=== PATIENT | male | born 1940 | race Two or more races ===

== ENCOUNTER → 2016-10-24 | Outpatient (CLI) | payer MEDICARE, OTHER ==
[~2016-10-24] MED LIST: HYDR25SU23 PR
--- NOTE | 2016-10-24 17:33 | RADRPT ---
PROCEDURE: XR Lumbar Spine. CLINICAL INDICATION: Back pain. TECHNIQUE: Three views. AP, lateral and cone-down lateral view of the lumbar spine were obtained. COMPARISON: No prior studies are available for comparison. FINDINGS: There is normal stature and alignment of the vertebrae. There is no fracture. There is no lytic or blastic lesion. There are degenerative changes with small osteophytes throughout. The disk height is normal. Vascular calcifications are present consistent with atherosclerosis. IMPRESSION: 1. Mild degenerative change throughout. 2. Atherosclerosis. 3. No acute abnormality. RPTAT: QQ .Elian Whitley MD, MD Date Time Electronically viewed and signed by .Elian Whitley MD, MD on 10/24/2016 17:33 .R/
== END | disposition home or self-care (01) ==
LOC: RAD 16:12
PROVIDERS: ATTEND Internal Medicine Rheumatology
DX: M54.5 Low back pain (principal)
CPT/HCPCS: 72100

== ENCOUNTER 2017-06-16 19:02 | Emergency (ER) | payer MEDICARE, OTHER ==
[~2017-06-16] VITALS: Ht 170.2 cm; Wt 83.5 kg
[2017-06-16 19:09] VITALS: Ht 170.2 cm; Wt 83.5 kg
== END 2017-06-16 22:32 | disposition left against medical advice (07) ==
LOC: E/R 19:02
DX: Z53.21 Procedure and treatment not carried out due to patient leaving prior to being seen by health care provider (principal)

== ENCOUNTER → 2017-11-21 | Outpatient (CLI) | END | disposition home or self-care (01) ==

== ENCOUNTER → 2017-12-27 | Outpatient (CLI) | END | disposition home or self-care (01) ==

== ENCOUNTER → 2018-02-09 | Outpatient (CLI) | END | disposition home or self-care (01) ==

== ENCOUNTER 2018-07-02 17:05 | Inpatient (IN) | END 2018-07-07 19:06 | disposition home health service (06) | DRG 433 ==

== ENCOUNTER 2018-10-01 15:17 | Inpatient (IN) | payer MEDICARE, OTHER ==
[~2018-10-01] VITALS: Ht 170.2 cm; Wt 72.6 kg
[~2018-10-01 15:17] MED LIST changes: +BICA50TA47 PO; +DOCU-216 PO; -HYDR25SU23 PR; +LAS20 PO; +LEVO125T7 PO; +MECL-77 PO; +MORP15TA3 PO; +OMEP40CA6 PO; +ONDA4TAB13 PO; +Polyethylene Glycol PO; +SPIR50TA PO; +TAMS-14 PO; +TRAM50TA2 PO
[2018-10-01] MEDS ORDERED: SODIUM CHLORIDE 0.9% 1L BAG IV* STA (15:19)
[2018-10-01 15:24] VITALS: Ht 170.2 cm; Wt 72.6 kg
[2018-10-01] MEDS ORDERED: SULF1TAB31 PO (16:42)
[2018-10-01] MEDS ORDERED: HYDR-4011 PO (16:42)
[2018-10-01] MEDS ORDERED: PRED5TAB PO (16:43)
[2018-10-01] MEDS ORDERED: ABIR250T PO (16:44)
[2018-10-01] MEDS ORDERED: HYDROCODONE/APAP (5/325) TAB PO ONE (17:00)
[2018-10-01] MEDS ORDERED: SOD CHLORIDE 0.9% 1,000 ML IV ONE (17:00)
--- NOTE | 2018-10-01 17:17 | ERD ---
ER Documentation Chief Complaint Chief Complaint generalized body pain 2 days HPI 78-year-old male brought into the emergency department by ambulance with his family who is providing translation and history. The patient is a poor hi storian providing no significant insight. According to the family, patient has a long-standing history of prostate cancer. He is required an indwelling Vaughn catheter and is known to have metastatic disease. Over the last 2 days, he has been confused, dehydrated and having increased discomfort all over his body that is poorly localized and poorly described. According to the family, he has had no fevers or chills but continued to be very weak and uncomfortable. ROS All systems reviewed and are negative except as per history of present illness. Medications Home Meds Active Scripts Tramadol HCl (Tramadol HCl) 50 Mg Tablet, 50 MG PO Q6H PRN for PAIN, #60 TAB Prov:UZIEL ABDI 07/07/18 Reported Medications Abiraterone Acetate (ZYTIGA) 250 Mg Tablet, 1000 MG PO DAILY, TAB 10/01/18 Prednisone* (Prednisone*) 5 Mg Tab, 5 MG PO BID, TAB 10/01/18 Hydrocodone/Acetaminophen ([place] 5-325 Tablet) 1 Each Tablet, 1 EACH PO Q6H, TAB 10/01/18 Sulfamethoxazole/Trimethoprim* (Bactrim Ds* Tablet) 1 Each Tablet, 1 TAB PO BID, TAB 10/01/18 Omeprazole* (Omeprazole*) 40 Mg Capsule.dr, 40 MG PO AC BREAKFAST, #30 CAP 07/02/18 Levothyroxine Sodium* (Levothyroxine Sodium*) 125 Mcg Tablet, 125 MCG PO BEFORE BREAKFAST, #30 TAB 07/02/18 Discontinued Reported Medications Ondansetron Hcl* (Zofran*) 4 Mg Tab, 4 MG PO Q4H PRN for NAUSEA AND OR VOMITING, TAB 07/02/18 Bicalutamide* (Bicalutamide*) 50 Mg Tablet, 50 MG PO DAILY, TAB 07/02/18 Meclizine Hcl* (Meclizine Hcl*) 25 Mg Tablet, 25 MG PO Q8H PRN for DIZZINESS, TAB 07/02/18 Tamsulosin Hcl* (Flomax*) 0.4 Mg Cap.er.24h, 0.4 MG PO HS, CAP 07/02/18 Discontinued Scripts [Polyethylene Glycol] 17 GM/PKT LIQ No Conflict Check, 17 GM PO DAILY PRN for CONSTIPATION, #60 PACKET Prov:UZIEL ABDI 07/07/18 Docusate Sodium (Dok) 100 Mg Capsule, 100 MG PO BID PRN for CONSTIPATION, #60 CAP Prov:UZIEL ABDI 07/07/18 Furosemide (Lasix) 20 Mg Tab, 20 MG PO DAILY, #60 TAB Prov:UZIEL ABDI 07/07/18 Morphine Sulfate (Morphine Sulfate ER) 15 Mg Tablet.er, 15 MG PO BID, #60 TAB Prov:UZIEL ABDI 07/07/18 Spironolactone* (Aldactone*) 50 Mg Tablet, 50 MG PO DAILY, #60 TAB Prov:UZIEL ABDI 07/07/18 Allergies Allergies: Coded Allergies: No Known Drug Allergies (Verified Allergy, Unknown, 10/01/18) PMhx/Soc History of Surgery: Yes (Partial prostate removal (2 mo ago), abd hernia repair, liver TIPS, stomach) Anesthesia Reaction: No Hx Neurological Disorder: No Hx Respiratory Disorders: No Hx Cardiac Disorders: Yes (abdominal hernia repair) Hx Psychiatric Problems: Yes (Depression, ETOH) Hx Miscellaneous Medical Probl: Yes (Cirrohsis, noncompliance) Hx Alcohol Use: Yes (Alcohol, not every day, but multiple days per week) Hx Substance Use: Yes Hx Tobacco Use: No FmHx Supportive daughter at the bedside. Physical Exam Vitals Vital Signs Date Temp Pulse Resp B/P (MAP) Pulse Ox O2 O2 Flow FiO2 Time Delivery Rate 10/01/18 97.3 108 20 98/63 (75) 95 15:24 Physical Exam GENERAL: Frail, elderly male. He appears dehydrated and ill-appearing HEENT: Pupils equal, round, and reactive to light. EOMI. There is no scleral ic terus. Mucous membranes are dry NECK: C-spine is soft and supple, there is no meningismus. There is no cervical lymphadenopathy. LUNGS: Clear to auscultation bilaterally. There are no rales, wheezes or rhonchi. HEART: Regular rate and rhythm, no murmurs, clicks, rubs or gallops. ABDOMEN: Soft, non-tender, non-distended. There are bowel sounds in all four quadrants. No rebound or guarding. : Patient has an indwelling Vaughn catheter draining urine with sediment in it. EXTREMITIES: 1+ edema bilaterally with no cyanosis or clubbing NEURO: The patient moves all four extremities with 5/5 strength. Cranial nerves II - XII are intact. Patient is awake and responsive to his family, but confuse d. SKIN: There is no apparent rash or petechiae. HEME/LYMPHATIC: There is no evidence of excessive bruising or lymphedema. PSYCHIATRIC: The patient does not appear anxious or depressed. Result Diagram: 10/01/18 1617 10/01/18 1617 Results 24 hrs Laboratory Tests Test 10/01/18 16:17 10/01/18 17:02 10/01/18 17:03 White Blood Count 10.6 10^3/ul Red Blood Count 3.12 10^6/ul Hemoglobin 10.4 g/dl Hematocrit 32.3 % Mean Corpuscular Volume 103.5 fl Mean Corpuscular Hemoglobin 33.3 pg Mean Corpuscular Hemoglobin Concent 32.2 g/dl Red Cell Distribution Width 16.2 % Platelet Count 86 10^3/UL Mean Platelet Volume 8.9 fl Immature Granulocytes % 0.500 % Neutrophils % % Segmented Neutrophils % (Manual) 71 % Lymphocytes % % Lymphocytes % (Manual) 19 % Monocytes % % Monocytes % (Manual) 9 % Eosinophils % % Eosinophils % (Manual) 1 % Basophils % % Nucleated Red Blood Cells % 0.0 /100WBC Immature Granulocytes # 0.050 10^3/ul Neutrophils # 10^3/ul Lymphocytes (Manual) 2.0 10^3/ul Lymphocytes # 10^3/ul Monocytes # 10^3/ul Monocytes # (Manual) 0.9 10^3/ul Eosinophils # 10^3/ul Basophils # 10^3/ul Nucleated Red Blood Cells # 10^3/ul Platelet Estimate DECREASED Giant Platelets 1 % Polychromasia 1+ Poikilocytosis 2+ Anisocytosis 1+ Macrocytosis 1+ Prothrombin Time 21.7 Sec Prothrombin Time Ratio 1.7 INR International Normalized Ratio 1.88 Activated Partial Thromboplast Time 37.6 Sec Sodium Level 137 mmol/L Potassium Level 4.1 mmol/L Chloride Level 112 mmol/L Carbon Dioxide Level 14 mmol/L Anion Gap 11 Blood Urea Nitrogen 26 mg/dl Creatinine 1.66 mg/dl Est Glomerular Filtrat Rate mL/min mL/min Glucose Level 71 mg/dl Calcium Level 10.8 mg/dl Total Bilirubin 3.8 mg/dl Direct Bilirubin 0.30 mg/dl Indirect Bilirubin 3.5 mg/dl Aspartate Amino Transf (AST/SGOT) 38 IU/L Alanine Aminotransferase (ALT/SGPT) 19 IU/L Alkaline Phosphatase 87 IU/L Troponin I 0.034 ng/ml Total Protein 5.9 g/dl Albumin 2.3 g/dl Globulin 3.60 g/dl Albumin/Globulin Ratio 0.63 POC Venous Lactate 5.2 mmol/L 4.6 mmol/L Current Medications Medications Dose Sig/Hoda Start Time Status Last (Trade) Ordered Route PRN Stop Time Admin Dose Reason Admin Sodium 2,100 ml BOLUS OVER 2 10/01/18 DC 10/01/18 Chloride HOURS STAT 15:19 10/01/18 16:48 (NS) IV* 15:21 1 tab ONCE ONCE 10/01/18 DC 10/01/18 Acetaminophen PO 17:00 10/01/18 16:51 / 17:01 Hydrocodone Bitart ([place] (5/325)) Sodium 1,000 ml @ Q1H ONCE 10/01/18 Chloride 1,000 mls/hr IV 17:00 10/01/18 17:59 Sodium 2,040 ml @ BOLUS X1 10/01/18 Chloride 680 mls/hr ONCE IV 17:30 10/01/18 20:29 Vancomycin 250 ml @ ONCE ONCE 10/01/18 HCl 125 mls/hr IVPB 17:30 10/01/18 19:29 Piperacillin 100 ml @ ONCE ONCE 10/01/18 Sod/ 200 mls/hr IVPB 17:30 10/01/18 Tazobactam 17:59 Sod Procedures/MDM Patient was taken to a room, seen and evaluated. Comfort measures were initiated. Diagnostic tests were ordered and reviewed. 3 LEAD RHYTHM STRIP: Sinus tachycardia EK lead EKG reviewed by myself: Sinus tachycardia Leftward axis deviation Nonspecific ST and T wave changes without ST elevation Impression: Abnormal, nonspecific EKG RADIOLOGY: Reviewed with the radiologist CONSULTATION: Hospitalist was notified for admission REEVALUATION: 1705: Initial lactate was performed demonstrating evidence of severe sepsis. A code sepsis was initiated. Patient remained with a blood pressure over 90 systolic. Fluids and antibiotics were initiated MEDICAL DECISION MAKIN-year-old male with an extensive history of prostate cancer presents with generalized body pain and weakness of uncertain etiology. Differential diagnosis entertained was broad and potential high acuity. Patient's diagnostic evaluation shows evidence of severe dehydration, acidosis and a possible sepsis from a possible urinary tract infection. He is severely hypercalcemic as well and dehydrated with renal failure. Given his age and his comorbid conditions, he is obviously high risk and will require admission for fluids, antibiotics and further supportive care. Sepsis Documentation: SEVERE SEPSIS CRITERIA: Infectious source: Likely catheter associated urinary tract infection End organ damage indicated by: lactate > 4 renal failure encephalopathy SEPSIS MANAGEMENT Time of recognition of sepsis: 170. Time of recognition of severe sepsis: 1705. Time of recognition of septic shock: No septic shock at this time. 3 HOUR BUNDLE Blood cultures x 2 before broad-spectrum antibiotics: Yes 30 ml/kg NS bolus ongoing Initial lactate reviewed Repeat lactate pending SEPTIC SHOCK ASSESSMENT: yes lactic acid > 4.0 No persistent hypotension (SBP < 90 or 40 mmHg drop, MAP < 65) despite 30 mL/kg IV fluid bolus VOLUME REASSESSMENT FOR SEPTIC SHOCK: Reevaluation Time: 1715 vital signs noted per nursing note Heart regular rate & rhythm Lungs no crackles Skin warm & dry Cap Refill less than 2 seconds Peripheral pulses radially present PERSISTENT HYPOTENSION TREATMENT: NA CRITICAL CARE Critical care time 35 minutes Emergent fluid management while maintaining close respiratory support. Provision of immediate and broad-spectrum antibiotic therapy. Simultaneous assessment for possible sources in order to direct targeted therapy. Consideration for invasive and chemical support to prevent cardiopulmonary collapse. Critical care time is independent of procedures performed. Departure Diagnosis: Primary Impression: Severe sepsis Additional Impressions: Hypercalcemia Renal failure Condition: Critical RASHAWNADRI Oct 01, 2018 17:17
[2018-10-01] MEDS ORDERED: SOD CHLORIDE 0.9% 2,040 ML IV ONE (17:30)
[2018-10-01] MEDS ORDERED: VANCOMYCIN 1 GM (PMX) 250 ML IVPB ONE (17:30)
[2018-10-01] MEDS ORDERED: PIPER-TAZO 3.375 GM IV (PMX) 100 ML IVPB ONE (17:30)
--- NOTE | 2018-10-01 18:55 | HP ---
Date/Time of Note Date/Time of Note DATE: 10/01/18 TIME: 18:48 Assessment/Plan VTE Prophylaxis SCD applied (from Nsg): Yes Pharmacological prophylaxis: NA/contraindicated Pharm contraindication: renal impairment Lines/Catheters IV Catheter Type (from Nrsg): Saline Lock Assessment/Plan Hospital Course 1. Septic shock secondary to urinary source Broad-spectrum antibiotics with vancomycin and Zosyn IV fluids Pressors as needed Admit to ICU 2. 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 History of cirrhosis status post TIPS 4. Pancytopenia secondary to cirrhosis Monitor 5. Acute kidney injury Differential includes ATN/hemodynamics and/or obstructive uropathy Follow-up on renal ultrasound IV fluids and antibiotics Prophylaxis: SCDs Result Diagram: 10/01/18 1617 10/01/18 1617 Results 24hrs Laboratory Tests Test 10/01/18 16:17 10/01/18 17:02 10/01/18 17:03 10/01/18 17:37 White Blood Count 10.6 # Red Blood Count 3.12 #L Hemoglobin 10.4 #L Hematocrit 32.3 #L Mean Corpuscular Volume 103.5 H Mean Corpuscular 33.3 H Hemoglobin Mean Corpuscular 32.2 Hemoglobin Concent Red Cell Distribution 16.2 H Width Platelet Count 86 #L Mean Platelet Volume 8.9 Immature Granulocytes % 0.500 H Neutrophils % Segmented Neutrophils 71 % (Manual) Lymphocytes % Lymphocytes % (Manual) 19 Monocytes % Monocytes % (Manual) 9 Eosinophils % Eosinophils % (Manual) 1 Basophils % Nucleated Red Blood 0.0 Cells % Immature Granulocytes # 0.050 H Neutrophils # Lymphocytes (Manual) 2.0 Lymphocytes # Monocytes # Monocytes # (Manual) 0.9 Eosinophils # Basophils # Nucleated Red Blood Cells # Platelet Estimate DECREASED Giant Platelets 1 H Polychromasia 1+ Poikilocytosis 2+ Anisocytosis 1+ Macrocytosis 1+ Prothrombin Time 21.7 H Prothrombin Time Ratio 1.7 INR International 1.88 Normalized Ratio Activated 37.6 H Partial Thromboplast Time Sodium Level 137 Potassium Level 4.1 Chloride Level 112 H Carbon Dioxide Level 14 L Anion Gap 11 Blood Urea Nitrogen 26 H Creatinine 1.66 H Est Glomerular Filtrat Rate mL/min Glucose Level 71 Calcium Level 10.8 H Total Bilirubin 3.8 H Direct Bilirubin 0.30 H Indirect Bilirubin 3.5 H Aspartate Amino 38 Transf (AST/SGOT) Alanine 19 Aminotransferase (ALT/SG PT) Alkaline Phosphatase 87 Troponin I 0.034 Total Protein 5.9 L Albumin 2.3 L Globulin 3.60 H Albumin/Globulin Ratio 0.63 POC Venous Lactate 5.2 *H 4.6 *H Urine Color AYE Urine Clarity CLOUDY A Urine pH 5.0 Urine Specific [place] 1.016 Urine Ketones TRACE A Urine Nitrite NEGATIVE Urine Bilirubin NEGATIVE Urine Urobilinogen 2+ H Urine Leukocyte Esterase 2+ H Urine Microscopic RBC > 182 H Urine Microscopic WBC > 182 H Urine Calcium Oxalate MODERATE Crystals Urine Mucus FEW A Urine Hemoglobin 3+ H Urine Glucose NEGATIVE Urine Total Protein 3+ H HPI/ROS Admit Date/Time Admit Date/Time October 01, 2018 Hx of Present Illness Patient is a 78-year-old [place]-speaking male with a history of prostate cancer with a Perley score of 10 out of 10 status post resection of bladder and prostate in December 2017, 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 Patient presents today with acute encephalopathy as well as s eptic shock secondary to a urinary source. Patient is unable to provide any history and history is obtained from previous documentation. ROS Subjective hx not possible: pt non-verbal PMH/Family/Social Past Medical History As per HPI Medications Current Medications Sodium Chloride 2,040 ml @ 680 mls/hr BOLUS X1 ONCE IV ; Start 10/01/18 at 17:30; Stop 10/01/18 at 20:29 Vancomycin HCl 250 ml @ 125 mls/hr ONCE ONCE IVPB Last administered on 10/01/18at 18:37; Admin Dose 125 MLS/HR; Start 10/01/18 at 17:30; Stop 10/01/18 at 19:29 Coded Allergies: No Known Drug Allergies (Verified Allergy, Unknown, 10/01/18) Past Surgical History Past Surgical Hx: other Family History Significant Family History: no pertinent family hx Social History Smoking Status: Never smoker Exam/Review of Systems Vital Signs Vitals Vital Signs Date Temp Pulse Resp B/P (MAP) Pulse Ox O2 O2 Flow FiO2 Time Delivery Rate 10/01/18 98.4 101 20 116/49 100 Nasal 18:20 (71) Cannula Exam Constitutional: non-verbal; No alert Respiratory: clear to auscultation Cardiovascular: regular rate and rhythm Gastrointestinal: soft; No distended Musculoskeletal: nl extremities to inspection UZIEL ABDI Oct 01, 2018 18:55
[2018-10-01] MEDS ORDERED: VANCOMYCIN IV PER PHARMACY XX SCH (19:00)
[2018-10-01] MEDS ORDERED: morphine 2 MG INJ IV PRN (19:00)
[2018-10-01] MEDS ORDERED: ONDANSETRON 4 MG INJ IV PRN (19:00)
[2018-10-01] MEDS ORDERED: NACL 0.9% 3 ML SYG IV SCH (19:00)
[2018-10-01 21:30] VITALS: BP 117/57; PULSE 99; RESP 17
[2018-10-01 22:00] VITALS: BP 110/71; PULSE 96; RESP 17
[2018-10-01 22:30] VITALS: BP 100/84; PULSE 98; RESP 16
[2018-10-01 23:00] VITALS: BP 117/52; PULSE 101; RESP 20
[2018-10-01] MEDS: PIPER-TAZO 3.375 GM IV (PMX) 100 ML IVPB SCH (23:32)
[2018-10-01] MEDS: SOD CHLORIDE 0.9% 1,000 ML IV SCH (23:32)
[2018-10-02] VITALS (21 sets, daily range): BP systolic 101–137; BP diastolic 40–99; PULSE 79–110; RESP 14–28
[2018-10-02] MEDS: SOD CHLORIDE 0.9% 1,000 ML IV SCH ×3 (04:55→21:32)
[2018-10-02] MEDS: PIPER-TAZO 3.375 GM IV (PMX) 100 ML IVPB SCH ×2 (05:03→14:00)
--- NOTE | 2018-10-02 08:25 | CONS ---
Date/Time of Note Date/Time of Note DATE: 10/02/18 TIME: 08:22 Assessment/Plan Assessment/Plan Assessment/Plan Assessment and recommendations; 1. Patient with history of prostate cancer and chronic indwelling Vaughn cath eter admitted for UTI and sepsis. Possibly contributing to altered mental status. 2. Pancytopenia. 3. Acute renal injury possibly chronic. Clinically improving. 4. History of cirrhosis of liver status post TIPS procedure in the past. Continue current supportive care. Further antibiotic adjustment to be done once culture results are obtained. Patient be transferred to medical floor. Result Diagram: 10/02/18 0520 10/02/18 0520 Results 24hrs Laboratory Tests Test 10/01/18 16:17 10/01/18 17:02 10/01/18 17:03 10/01/18 17:37 White Blood Count 10.6 # Red Blood Count 3.12 #L Hemoglobin 10.4 #L Hematocrit 32.3 #L Mean Corpuscular Volume 103.5 H Mean Corpuscular 33.3 H Hemoglobin Mean Corpuscular 32.2 Hemoglobin Concent Red Cell Distribution 16.2 H Width Platelet Count 86 #L Mean Platelet Volume 8.9 Immature Granulocytes % 0.500 H Neutrophils % Segmented Neutrophils 71 % (Manual) Lymphocytes % Lymphocytes % (Manual) 19 Monocytes % Monocytes % (Manual) 9 Eosinophils % Eosinophils % (Manual) 1 Basophils % Nucleated Red Blood 0.0 Cells % Immature Granulocytes # 0.050 H Neutrophils # Lymphocytes (Manual) 2.0 Lymphocytes # Monocytes # Monocytes # (Manual) 0.9 Eosinophils # Basophils # Nucleated Red Blood Cells # Platelet Estimate DECREASED Giant Platelets 1 H Polychromasia 1+ Poikilocytosis 2+ Anisocytosis 1+ Macrocytosis 1+ Prothrombin Time 21.7 H Prothrombin Time Ratio 1.7 INR International 1.88 Normalized Ratio Activated 37.6 H Partial Thromboplast Time Sodium Level 137 Potassium Level 4.1 Chloride Level 112 H Carbon Dioxide Level 14 L Anion Gap 11 Blood Urea Nitrogen 26 H Creatinine 1.66 H Est Glomerular Filtrat Rate mL/min Glucose Level 71 Calcium Level 10.8 H Total Bilirubin 3.8 H Direct Bilirubin 0.30 H Indirect Bilirubin 3.5 H Aspartate Amino 38 Transf (AST/SGOT) Alanine 19 Aminotransferase (ALT/SG PT) Alkaline Phosphatase 87 Troponin I 0.034 Total Protein 5.9 L Albumin 2.3 L Globulin 3.60 H Albumin/Globulin Ratio 0.63 POC Venous Lactate 5.2 *H 4.6 *H Urine Color AYE Urine Clarity CLOUDY A Urine pH 5.0 Urine Specific [place] 1.016 Urine Ketones TRACE A Urine Nitrite NEGATIVE Urine Bilirubin NEGATIVE Urine Urobilinogen 2+ H Urine Leukocyte Esterase 2+ H Urine Microscopic RBC > 182 H Urine Microscopic WBC > 182 H Urine Calcium Oxalate MODERATE Crystals Urine Mucus FEW A Urine Hemoglobin 3+ H Urine Glucose NEGATIVE Urine Total Protein 3+ H Test 10/01/18 19:01 10/01/18 22:07 10/02/18 05:00 10/02/18 05:20 POC Venous Lactate 4.5 *H Lactic Acid Level 3.7 *H 2.9 *H White Blood Count 6.2 # Red Blood Count 2.58 L Hemoglobin 8.7 L Hematocrit 26.7 L Mean Corpuscular Volume 103.5 H Mean Corpuscular 33.7 H Hemoglobin Mean Corpuscular 32.6 Hemoglobin Concent Red Cell Distribution 15.9 H Width Platelet Count 59 #L Mean Platelet Volume 9.3 Immature Granulocytes % 0.300 Neutrophils % 69.5 Lymphocytes % 18.2 Monocytes % 8.6 Eosinophils % 3.1 Basophils % 0.3 Nucleated Red Blood 0.0 Cells % Immature Granulocytes # 0.020 Neutrophils # 4.3 Lymphocytes # 1.1 Monocytes # 0.5 Eosinophils # 0.2 Basophils # 0.0 Nucleated Red Blood 0.0 Cells # Sodium Level 143 Potassium Level 3.7 Chloride Level 118 H Carbon Dioxide Level 15 L Anion Gap 10 Blood Urea Nitrogen 23 H Creatinine 1.28 H Est Glomerular Filtrat Rate mL/min Glucose Level 72 Calcium Level 9.9 Phosphorus Level 2.2 L Magnesium Level 2.1 Consultation Date/Type/Reason Admit Date/Time October 01, 2018 Date of Consultation: Oct 02, 2018 Type of Consult Pulmonary/critical care History of presenting illness; Patient is a 78-year-old male who was brought over to the hospital with complaints of altered mental status. Further workup was done which is showing patient has UTI with sepsis. Patient was unable to give any history by himself but was readily arousable and did not appear to be in any distress whatsoever. He has remained hemodynamically stable. Past medical history; 1. History of prostate cancer status post prostatectomy. 2. History of chronic indwelling Vaughn catheter. 3. Possibly chronic renal insufficiency. 4. History of cirrhosis of liver status post TIPS procedure. 5. Possibly chronic anemia and thrombocytopenia. Medications; reviewed. Allergies; none. Social history, family history, occupational history not available. Review of systems; limited review of system could be obtained. The patient denies any chest pain. Any shortness of breath. General exam; elderly male, awake, currently in no distress. Past Medical History Medications Current Medications Sodium Chloride 1,000 ml @ 100 mls/hr Q10H IV Last administered on 10/01/18at 23:32; Admin Dose 100 MLS/HR; Start 10/01/18 at 18:55 IV Flush (NS 3 ml) 3 ml PER PROTOCOL IV ; Start 10/01/18 at 19:00 Ondansetron HCl (Zofran Inj) 4 mg Q6H PRN IV NAUSEA AND/OR VOMITING; Start 10/01/18 at 19:00 Morphine Sulfate (morphine) 2 mg Q4H PRN IV SEVERE PAIN LEVEL 7-10; Start 10/01/18 at 19:00 Piperacillin Sod/ Tazobactam Sod 100 ml @ 200 mls/hr Q8 IVPB Last administered on 10/02/18at 05:03; Admin Dose 200 MLS/HR; Start 10/01/18 at 23:30 Vancomycin HCl (Vanco Iv Per Pharmacy) VANCOMYCIN PER PHARMACY PER PROTOCOL XX ; Start 10/01/18 at 19:00 Vancomycin HCl 250 ml @ 125 mls/hr Q24H IVPB ; Start 10/02/18 at 17:00 Allergies: Coded Allergies: No Known Drug Allergies (Verified Allergy, Unknown, 10/01/18) Past Surgical History Past Surgical Hx: other Social History Smoking Status: Never smoker Exam/Review of Systems Vital Signs Vitals Vital Signs Date Temp Pulse Resp B/P (MAP) Pulse Ox O2 O2 Flow FiO2 Time Delivery Rate 10/02/18 28 116/55 73 Room Air 06:00 (75) 10/02/18 94 05:00 10/02/18 97.3 04:00 10/02/18 2.0 01:00 Intake and Output 10/01/18 10/01/18 10/02/18 1515:00 23:00 07:00 IntakeIntake Total 4450 ml 848 ml OutputOutput Total 200 ml 155 ml BalanceBalance 4250 ml 693 ml Exam H EENT exam; supple neck, no JVD. No lymphadenopathy. Midline trachea. No thyromegaly. Patient is edentulous. No neck masses. Chest exam; clear to auscultation. S1-S2 audible, no murmurs. Regular rhythm. Abdomen exam; soft, no organomegaly. Bowel sounds audible. There is a well- healed laparotomy scar. Extremity exam; no peripheral edema or clubbing. HOG HANDLER exam; is awake and moves all 4 extremities. Medications Medications Current Medications Sodium Chloride 1,000 ml @ 100 mls/hr Q10H IV Last administered on 10/01/18at 23:32; Admin Dose 100 MLS/HR; Start 10/01/18 at 18:55 IV Flush (NS 3 ml) 3 ml PER PROTOCOL IV ; Start 10/01/18 at 19:00 Ondansetron HCl (Zofran Inj) 4 mg Q6H PRN IV NAUSEA AND/OR VOMITING; Start 10/01/18 at 19:00 Morphine Sulfate (morphine) 2 mg Q4H PRN IV SEVERE PAIN LEVEL 7-10; Start 10/01/18 at 19:00 Piperacillin Sod/ Tazobactam Sod 100 ml @ 200 mls/hr Q8 IVPB Last administered on 10/02/18at 05:03; Admin Dose 200 MLS/HR; Start 10/01/18 at 23:30 Vancomycin HCl (Vanco Iv Per Pharmacy) VANCOMYCIN PER PHARMACY PER PROTOCOL XX ; Start 10/01/18 at 19:00 Vancomycin HCl 250 ml @ 125 mls/hr Q24H IVPB ; Start 10/02/18 at 17:00 HEMANT FENTON Oct 02, 2018 08:25
[2018-10-02] MEDS: HYDROCODONE/APAP (5/325) TAB PO PRN ×2 (10:25→22:46)
--- NOTE | 2018-10-02 14:41 | PN ---
Date/Time of Note Date/Time of Note DATE: 10/02/18 TIME: 14:38 Assessment/Plan VTE Prophylaxis Risk score (from [facility] [place]0 risk: 6 SCD applied (from [facility] [place]): Yes Pharmacological prophylaxis: NA/contraindicated Pharm contraindication: renal impairment Lines/Catheters IV Catheter Type (from [facility]): Peripheral IV Assessment/Plan Hospital Course 1. Acute metabolic encephalopathy secondary to septic shock secondary to urinary source-improved De-escalate antibiotics, DC vancomycin and Zosyn and start Rocephin IV fluids Transfer to telemetry 2. History of prostate cancer with a Elke score of 10 out of 10 status post resection of bladder and prostate in December 2017 Patient was recently hospitalized for hydronephrosis secondary to bladder wall mass and was discharged with a Vaughn catheter with plans to follow-up with outpatient urologist 3. History of cirrhosis status post TIPS 4. Pancytopenia secondary to cirrhosis Monitor 5. Acute kidney injury likely secondary to hemodynamics and/or ATNimproving Renal ultrasound shows no evidence of obstruction IV fluids and antibiotics Prophylaxis: SCDs DC planning: Anticipate DC home in 1-2 days Result Diagram: 10/02/18 0520 10/02/18 0520 Results 24hrs Laboratory Tests Test 10/01/18 16:17 10/01/18 17:02 10/01/18 17:03 10/01/18 17:37 White Blood Count 10.6 # Red Blood Count 3.12 #L Hemoglobin 10.4 #L Hematocrit 32.3 #L Mean Corpuscular Volume 103.5 H Mean Corpuscular 33.3 H Hemoglobin Mean Corpuscular 32.2 Hemoglobin Concent Red Cell Distribution 16.2 H Width Platelet Count 86 #L Mean Platelet Volume 8.9 Immature Granulocytes % 0.500 H Neutrophils % Segmented Neutrophils 71 % (Manual) Lymphocytes % Lymphocytes % (Manual) 19 Monocytes % Monocytes % (Manual) 9 Eosinophils % Eosinophils % (Manual) 1 Basophils % Nucleated Red Blood 0.0 Cells % Immature Granulocytes # 0.050 H Neutrophils # Lymphocytes (Manual) 2.0 Lymphocytes # Monocytes # Monocytes # (Manual) 0.9 Eosinophils # Basophils # Nucleated Red Blood Cells # Platelet Estimate DECREASED Giant Platelets 1 H Polychromasia 1+ Poikilocytosis 2+ Anisocytosis 1+ Macrocytosis 1+ Prothrombin Time 21.7 H Prothrombin Time Ratio 1.7 INR International 1.88 Normalized Ratio Activated 37.6 H Partial Thromboplast Time Sodium Level 137 Potassium Level 4.1 Chloride Level 112 H Carbon Dioxide Level 14 L Anion Gap 11 Blood Urea Nitrogen 26 H Creatinine 1.66 H Est Glomerular Filtrat Rate mL/min Glucose Level 71 Calcium Level 10.8 H Total Bilirubin 3.8 H Direct Bilirubin 0.30 H Indirect Bilirubin 3.5 H Aspartate Amino 38 Transf (AST/SGOT) Alanine 19 Aminotransferase (ALT/SG PT) Alkaline Phosphatase 87 Troponin I 0.034 Total Protein 5.9 L Albumin 2.3 L Globulin 3.60 H Albumin/Globulin Ratio 0.63 POC Venous Lactate 5.2 *H 4.6 *H Urine Color AYE Urine Clarity CLOUDY A Urine pH 5.0 Urine Specific [place] 1.016 Urine Ketones TRACE A Urine Nitrite NEGATIVE Urine Bilirubin NEGATIVE Urine Urobilinogen 2+ H Urine Leukocyte Esterase 2+ H Urine Microscopic RBC > 182 H Urine Microscopic WBC > 182 H Urine Calcium Oxalate MODERATE Crystals Urine Mucus FEW A Urine Hemoglobin 3+ H Urine Glucose NEGATIVE Urine Total Protein 3+ H Test 10/01/18 19:01 10/01/18 22:07 10/02/18 05:00 10/02/18 05:20 POC Venous Lactate 4.5 *H Lactic Acid Level 3.7 *H 2.9 *H White Blood Count 6.2 # Red Blood Count 2.58 L Hemoglobin 8.7 L Hematocrit 26.7 L Mean Corpuscular Volume 103.5 H Mean Corpuscular 33.7 H Hemoglobin Mean Corpuscular 32.6 Hemoglobin Concent Red Cell Distribution 15.9 H Width Platelet Count 59 #L Mean Platelet Volume 9.3 Immature Granulocytes % 0.300 Neutrophils % 69.5 Lymphocytes % 18.2 Monocytes % 8.6 Eosinophils % 3.1 Basophils % 0.3 Nucleated Red Blood 0.0 Cells % Immature Granulocytes # 0.020 Neutrophils # 4.3 Lymphocytes # 1.1 Monocytes # 0.5 Eosinophils # 0.2 Basophils # 0.0 Nucleated Red Blood 0.0 Cells # Sodium Level 143 Potassium Level 3.7 Chloride Level 118 H Carbon Dioxide Level 15 L Anion Gap 10 Blood Urea Nitrogen 23 H Creatinine 1.28 H Est Glomerular Filtrat Rate mL/min Glucose Level 72 Calcium Level 9.9 Phosphorus Level 2.2 L Magnesium Level 2.1 Subjective 24 Hr Interval Summary Constitutional: no complaints Exam/Review of Systems Vital Signs Vitals Vital Signs Date Temp Pulse Resp B/P (MAP) Pulse Ox O2 O2 Flow FiO2 Time Delivery Rate 10/02/18 98.1 87 18 123/60 93 14:30 (81) 10/02/18 Room Air 14:00 10/02/18 2.0 01:00 Intake and Output 10/01/18 10/01/18 10/02/18 1515:00 23:00 07:00 IntakeIntake Total 4450 ml 848 ml OutputOutput Total 200 ml 180 ml BalanceBalance 4250 ml 668 ml Exam Constitutional: alert Respiratory: clear to auscultation Cardiovascular: regular rate and rhythm Gastrointestinal: soft; No distended Musculoskeletal: nl extremities to inspection Medications Medications Current Medications Sodium Chloride 1,000 ml @ 100 mls/hr Q10H IV Last administered on 10/02/18at 08:37; Admin Dose 100 MLS/HR; Start 10/01/18 at 18:55 IV Flush (NS 3 ml) 3 ml PER PROTOCOL IV ; Start 10/01/18 at 19:00 Ondansetron HCl (Zofran Inj) 4 mg Q6H PRN IV NAUSEA AND/OR VOMITING; Start 10/01/18 at 19:00 Morphine Sulfate (morphine) 2 mg Q4H PRN IV SEVERE PAIN LEVEL 7-10; Start 10/01/18 at 19:00 Piperacillin Sod/ Tazobactam Sod 100 ml @ 200 mls/hr Q8 IVPB Last administered on 10/02/18at 14:00; Admin Dose 200 MLS/HR; Start 10/01/18 at 23:30 Vancomycin HCl (Vanco Iv Per Pharmacy) VANCOMYCIN PER PHARMACY PER PROTOCOL XX ; Start 10/01/18 at 19:00 Vancomycin HCl 250 ml @ 125 mls/hr Q24H IVPB ; Start 10/02/18 at 15:00 Acetaminophen/ Hydrocodone Bitart ([place] (5/325)) 1 tab Q4H PRN PO MODERATE PAIN LEVEL 4-6 Last administered on 10/02/18at 10:25; Admin Dose 1 TAB; Start 10/02/18 at 10:00 UZIEL ABDI Oct 02, 2018 14:41
[2018-10-02] MEDS ORDERED: CEFTRIAXONE 1 GM/50 ML (PMX) 50 ML IVPB SCH (15:00)
[2018-10-02] MEDS ORDERED: VANCOMYCIN 1 GM 250 ML IVPB SCH ×2 (15:00→17:00)
[2018-10-02] MEDS ORDERED: traMADol 50 MG TAB PO PRN (16:30)
[2018-10-02] MEDS: predniSONE 5 MG TAB PO SCH (21:31)
[2018-10-02] MEDS: BACTRIM DS PO SCH (21:31)
[2018-10-02] MEDS ORDERED: VITAMIN A & D 5 GM OINT PACKET TOP ONE (22:42)
[2018-10-03] VITALS (7 sets, daily range): BP systolic 123–132; BP diastolic 57–69; PULSE 76–104; RESP 18–20
[2018-10-03] MEDS ORDERED: LEVOTHYROXINE 125 MCG TAB PO SCH (06:00)
[2018-10-03] MEDS: SOD CHLORIDE 0.9% 1,000 ML IV SCH (08:53)
[2018-10-03] MEDS: predniSONE 5 MG TAB PO SCH (09:15)
[2018-10-03] MEDS: BACTRIM DS PO SCH (09:15)
--- NOTE | 2018-10-03 09:32 | PDOCDIS ---
Discharge Instructions CONDITION [id number] Patient Condition: [id number] Good HOME CARE INSTRUCTIONS: [id number] Diet Instructions: [id number] Reduced Sodium ACTIVITY: [id number] Activity Restrictions: [id number] No Restrictions FOLLOW UP/APPOINTMENTS Follow-up Plan FOLLOW UP WITH YOUR PCP AND ONCOLOGIST SCHEDULED UZIEL ABDI Oct 03, 2018 09:32
[2018-10-03] MEDS ORDERED: LACT20SO2 PO (11:11)
--- NOTE | 2018-10-03 11:12 | DS ---
Date/Time of Note Date/Time of Note DATE: 10/03/18 TIME: 11:02 Discharge Summary Admission/Discharge Info Admit Date/Time Oct 01, 2018 at 17:11 Discharge Date/Time October 03, 2018 Discharge Diagnosis 1. Acute metabolic encephalopathy secondary to septic shock and/or hepatic encephalopathy-resolved Status post antibiotics, no indication for further antibiotics upon DC Cultures are negative Mentation has returned to baseline Lactic acidosis may be secondary to sepsis and/or decreased clearance from cirrhosis DC with lactulose 2. History of prostate cancer with a [place] score of 10 out of 10 status post resection of bladder and prostate in December 2017 Patient was recently hospitalized for hydronephrosis secondary to bladder wall mass and was discharged with a Vaughn catheter, patient does follow-up with urologist as an outpatient Patient has plans for radiation as an outpatient in the coming week Continue Vaughn catheter upon DC 3. History of cirrhosis status post TIPS 4. Pancytopenia secondary to cirrhosis Monitor 5. Acute kidney injury likely secondary to hemodynamics and/or ATNresolved Renal ultrasound shows no evidence of obstruction Status post IV fluids and antibiotics Patient Condition: Good Hx of Present Illness Hospital Course Patient is a 78-year-old Samoan-speaking male with a history of prostate cancer with a [place] score of 10 out of 10 status post resection of bladder and prostate in December 2017, 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 Of note patient has been following up with his urologist and is receiving radiation. Patient presented during this hospitalization for acute encephalopathy as well as septic shock secondary to a urinary source. Patient was monitored in the ICU was given fluids as well as antibiotics with resolution of his shock and encephalopathy. Patient's cultures did come back negative and patient's encephalopathy may have also been secondary to his history of cirrhosis. Nonetheless patient's mentation and vitals did stabilize and patient did not require any further antibiotics. Patient daughter was spoken to and plan is for continuation of radiation as an outpatient, patient was stable for DC and on the day of discharge patient's vitals, labs and physical exam are stable, patient has no acute complaints and questions are answered. Of note patient was prescribed lactulose upon DC. Home Meds Active Scripts Tramadol HCl (Tramadol HCl) 50 Mg Tablet, 50 MG PO Q6H PRN for PAIN, #60 TAB Prov:JINUZIEL 07/07/18 Reported Medications Abiraterone Acetate (ZYTIGA) 250 Mg Tablet, 1000 MG PO DAILY, TAB 10/01/18 Prednisone* (Prednisone*) 5 Mg Tab, 5 MG PO BID, TAB 10/01/18 Hydrocodone/Acetaminophen ([place] 5-325 Tablet) 1 Each Tablet, 1 EACH PO Q6H, TAB 10/01/18 Sulfamethoxazole/Trimethoprim* (Bactrim Ds* Tablet) 1 Each Tablet, 1 TAB PO BID, TAB 10/01/18 Omeprazole* (Omeprazole*) 40 Mg Capsule.dr, 40 MG PO AC BREAKFAST, #30 CAP 07/02/18 Levothyroxine Sodium* (Levothyroxine Sodium*) 125 Mcg Tablet, 125 MCG PO BEFORE BREAKFAST, #30 TAB 07/02/18 Discontinued Reported Medications Ondansetron Hcl* (Zofran*) 4 Mg Tab, 4 MG PO Q4H PRN for NAUSEA AND OR VOMITING, TAB 07/02/18 Bicalutamide* (Bicalutamide*) 50 Mg Tablet, 50 MG PO DAILY, TAB 07/02/18 Meclizine Hcl* (Meclizine Hcl*) 25 Mg Tablet, 25 MG PO Q8H PRN for DIZZINESS, TAB 07/02/18 Tamsulosin Hcl* (Flomax*) 0.4 Mg Cap.er.24h, 0.4 MG PO HS, CAP 07/02/18 Discontinued Scripts [Polyethylene Glycol] 17 GM/PKT LIQ No Conflict Check, 17 GM PO DAILY PRN for CONSTIPATION, #60 PACKET Prov:UZIEL ABDI 07/07/18 Docusate Sodium (Dok) 100 Mg Capsule, 100 MG PO BID PRN for CONSTIPATION, #60 CAP Prov:UZIEL BADI 07/07/18 Furosemide (Lasix) 20 Mg Tab, 20 MG PO DAILY, #60 TAB Prov:UZIEL ABDI 07/07/18 Morphine Sulfate (Morphine Sulfate ER) 15 Mg Tablet.er, 15 MG PO BID, #60 TAB Prov:UZIEL ABDI 07/07/18 Spironolactone* (Aldactone*) 50 Mg Tablet, 50 MG PO DAILY, #60 TAB Prov:UZIEL ABDI 07/07/18 Follow-up Plan FOLLOW UP WITH YOUR PCP AND ONCOLOGIST SCHEDULED Primary Care Provider Not On Staff Doctor Time spent on discharge: > 30 minutes UZIEL ABDI Oct 03, 2018 11:12
== END 2018-10-03 14:12 | disposition home or self-care (01) | DRG 871 ==
LOC: E/R 15:17 → ICU 17:11 → 6WM 10-02 14:18
PROVIDERS: ADMIT Internal Medicine; ATTEND Internal Medicine
DX: A41.9 Sepsis, unspecified organism (principal); R65.21 Severe sepsis with septic shock; G93.41 Metabolic encephalopathy; N17.0 Acute kidney failure with tubular necrosis; D61.818 Other pancytopenia; N39.0 Urinary tract infection, site not specified; C79.9 Secondary malignant neoplasm of unspecified site; K74.60 Unspecified cirrhosis of liver; K72.90 Hepatic failure, unspecified without coma; Z85.46 Personal history of malignant neoplasm of prostate
CPT/HCPCS: 36415; 71045; 76775; 80048; 80053; 81001; 83605; 83735; 84100; 84484; 85025; 85610; 85730; 87040; 87045; 87075; 87081; 87086; 92526; 92610; 93005; J0696; J2543; J3370; J7030; J7512

== ENCOUNTER 2018-10-07 07:37 | Inpatient (IN) | payer MEDICARE, OTHER ==
[~2018-10-07] VITALS: Ht 172.7 cm; Wt 75.0 kg
[~2018-10-07 07:37] MED LIST changes: +ABIR250T PO; -BICA50TA47 PO; -DOCU-216 PO; +HYDR-4011 PO; +LACT20SO2 PO; -LAS20 PO; -MECL-77 PO; -MORP15TA3 PO; -ONDA4TAB13 PO; +PRED5TAB PO; -Polyethylene Glycol PO; -SPIR50TA PO; +SULF1TAB31 PO; -TAMS-14 PO
[2018-10-07] MEDS ORDERED: morphine 4 MG/ML VIAL IV STA (07:54)
[2018-10-07] MEDS ORDERED: ONDANSETRON 4 MG INJ IV STA (07:54)
[2018-10-07] MEDS ORDERED: HYDROmorphONE 0.5 MG/0.5 ML SYG IV STA (08:00)
[2018-10-07] MEDS ORDERED: ONDANSETRON 4 MG INJ IV PRN ×2 (09:00→11:30)
[2018-10-07] MEDS ORDERED: ACETAMINOPHEN 325 MG TAB PO PRN ×2 (09:00→11:30)
--- NOTE | 2018-10-07 09:43 | ERD ---
ER Documentation Chief Complaint Chief Complaint MECHANICAL FALL,LEFT HIP PAIN,NO KO HPI Patient is a 78-year-old male with cirrhosis who presents with a fall. The patient fell last night and unknown time and was unable to get off the floor. He has left hip pain in his left leg is shortened and rotated. The patient was brought in by ambulance. His daughter is with him now. He has no treatment as of yet. He does have a primary doctor. ROS All systems reviewed and are negative except as per history of present illness. Medications Home Meds Active Scripts Lactulose* (Lactulose*) 20 Gm/30 Ml Solution, 20 GM PO BID, #60 BOTTLE 1 Refill Prov:UZIEL ABDI 10/03/18 Tramadol HCl (Tramadol HCl) 50 Mg Tablet, 50 MG PO Q6H PRN for PAIN, #60 TAB Prov:UZIEL ABDI 07/07/18 Reported Medications Abiraterone Acetate (ZYTIGA) 250 Mg Tablet, 1000 MG PO DAILY, TAB 10/01/18 Prednisone* (Prednisone*) 5 Mg Tab, 5 MG PO BID, TAB 10/01/18 Hydrocodone/Acetaminophen ([place] 5-325 Tablet) 1 Each Tablet, 1 EACH PO Q6H, TAB 10/01/18 Sulfamethoxazole/Trimethoprim* (Bactrim Ds* Tablet) 1 Each Tablet, 1 TAB PO BID, TAB 10/01/18 Omeprazole* (Omeprazole*) 40 Mg Capsule.dr, 40 MG PO AC BREAKFAST, #30 CAP 07/02/18 Levothyroxine Sodium* (Levothyroxine Sodium*) 125 Mcg Tablet, 125 MCG PO BEFORE BREAKFAST, #30 TAB 07/02/18 Discontinued Reported Medications Ondansetron Hcl* (Zofran*) 4 Mg Tab, 4 MG PO Q4H PRN for NAUSEA AND OR VOMITING, TAB 07/02/18 Bicalutamide* (Bicalutamide*) 50 Mg Tablet, 50 MG PO DAILY, TAB 07/02/18 Meclizine Hcl* (Meclizine Hcl*) 25 Mg Tablet, 25 MG PO Q8H PRN for DIZZINESS, TAB 07/02/18 Tamsulosin Hcl* (Flomax*) 0.4 Mg Cap.er.24h, 0.4 MG PO HS, CAP 07/02/18 Discontinued Scripts [Polyethylene Glycol] 17 GM/PKT LIQ No Conflict Check, 17 GM PO DAILY PRN for CONSTIPATION, #60 PACKET Prov:UZIEL ABDI 07/07/18 Docusate Sodium (Dok) 100 Mg Capsule, 100 MG PO BID PRN for CONSTIPATION, #60 CAP Prov:UZIEL ABDI 07/07/18 Furosemide (Lasix) 20 Mg Tab, 20 MG PO DAILY, #60 TAB Prov:UZIEL ABDI 07/07/18 Morphine Sulfate (Morphine Sulfate ER) 15 Mg Tablet.er, 15 MG PO BID, #60 TAB Prov:UZIEL ABDI 07/07/18 Spironolactone* (Aldactone*) 50 Mg Tablet, 50 MG PO DAILY, #60 TAB Prov:UZIEL ABDI 07/07/18 Allergies Allergies: Coded Allergies: No Known Drug Allergies (Verified Allergy, Unknown, 10/07/18) PMhx/Soc History of Surgery: Yes (resection of the bladder) Anesthesia Reaction: No Hx Neurological Disorder: No Hx Respiratory Disorders: No Hx Cardiac Disorders: Yes (abdominal hernia repair) Hx Psychiatric Problems: Yes (Depression, ETOH) Hx Miscellaneous Medical Probl: No Hx Alcohol Use: Yes (Alcohol, not every day, but multiple days per week) Hx Substance Use: No Hx Tobacco Use: No Smoking Status: Never smoker FmHx Family History: No diabetes Physical Exam Vitals Vital Signs Date Temp Pulse Resp B/P (MAP) Pulse Ox O2 O2 Flow FiO2 Time Delivery Rate 10/07/18 76 18 139/63 96 Room Air 09:33 (88) 10/07/18 98.9 78 18 115/72 98 07:44 (86) Physical Exam Const: No acute distress Head: Atraumatic Eyes: Normal Conjunctiva ENT: Normal External Ears, Nose and Mouth. Neck: Full range of motion. No meningismus. Resp: Clear to auscultation bilaterally Cardio: Regular rate and rhythm, no murmurs Abd: Soft, non tender, non distended. Normal bowel sounds Skin: No petechiae or rashes Back: No midline or flank tenderness Ext: Left leg shortened and rotated, left hip pain with range of motion Neur: Awake but confused Result Diagram: 10/07/18 0830 10/07/18 0830 Results 24 hrs Laboratory Tests Test 10/07/18 08:30 White Blood Count 6.0 10^3/ul Red Blood Count 2.63 10^6/ul Hemoglobin 9.0 g/dl Hematocrit 28.3 % Mean Corpuscular Volume 107.6 fl Mean Corpuscular Hemoglobin 34.2 pg Mean Corpuscular Hemoglobin Concent 31.8 g/dl Red Cell Distribution Width 17.5 % Platelet Count 57 10^3/UL Mean Platelet Volume 9.3 fl Immature Granulocytes % 0.500 % Neutrophils % 56.2 % Lymphocytes % 28.4 % Monocytes % 11.3 % Eosinophils % 3.4 % Basophils % 0.2 % Nucleated Red Blood Cells % 0.0 /100WBC Immature Granulocytes # 0.030 10^3/ul Neutrophils # 3.4 10^3/ul Lymphocytes # 1.7 10^3/ul Monocytes # 0.7 10^3/ul Eosinophils # 0.2 10^3/ul Basophils # 0.0 10^3/ul Nucleated Red Blood Cells # 0.0 10^3/ul Prothrombin Time 19.2 Sec Prothrombin Time Ratio 1.5 INR International Normalized Ratio 1.61 Activated Partial Thromboplast Time 34.4 Sec Sodium Level 138 mmol/L Potassium Level 4.9 mmol/L Chloride Level 117 mmol/L Carbon Dioxide Level 20 mmol/L Anion Gap 1 Blood Urea Nitrogen 31 mg/dl Creatinine 1.14 mg/dl Est Glomerular Filtrat Rate mL/min mL/min Glucose Level 99 mg/dl Calcium Level 10.2 mg/dl Total Bilirubin 2.0 mg/dl Direct Bilirubin 0.00 mg/dl Indirect Bilirubin 2.0 mg/dl Aspartate Amino Transf (AST/SGOT) 38 IU/L Alanine Aminotransferase (ALT/SGPT) 33 IU/L Alkaline Phosphatase 74 IU/L Ammonia < 9 umol/l Troponin I 0.019 ng/ml Total Protein 5.1 g/dl Albumin 2.1 g/dl Globulin 3.00 g/dl Albumin/Globulin Ratio 0.70 Current Medications Medications Dose Sig/Hoda Start Time Status Last (Trade) Ordered Route PRN Stop Time Admin Dose Reason Admin Morphine 4 mg ONCE STAT 10/07/18 DC Sulfate IV 07:54 10/07/18 (morphine) 08:01 Ondansetron 4 mg ONCE STAT 10/07/18 DC 10/07/18 HCl (Zofran IV 07:54 10/07/18 08:38 Inj) 07:57 0.5 mg ONCE STAT 10/07/18 DC 10/07/18 Hydromorphone IV 08:00 10/07/18 08:39 HCl 08:01 (Dilaudid) Ondansetron 4 mg BRIDGE ORDER 10/07/18 HCl (Zofran PRN IV 09:00 Inj) NAUSEA AND/OR 10/08/18 08:59 VOMITING 650 mg ER BRIDGE 10/07/18 Acetaminophen PRN PO MILD 09:00 (Tylenol PAIN(1-3)OR 10/08/18 08:59 Tab) ELEVATED TEMP Procedures/MDM CT brain shows no skull fracture or bleed per radiology. X-ray Hip 2V Interpreted by me: Bones: Left comminuted intertrochanteric hip fracture Joints: No dislocation Foreign body: None EKG read by me: Rate/Rhythm: Regular rate and rhythm at a normal rate Intervals: Normal Impression: No evidence of ischemia or arrhythmia Patient is a 78-year-old male who presents with a fall. He was found to have a left-sided hip fracture. I spoke with Dr. Gill from orthopedic surgery who will see the patient in consultation for fixation. I spoke with Dr. Patel from the panel team for admission to a medical surgical bed. Ammonia level is normal. Departure Diagnosis: Primary Impression: Hip fracture Encounter type: initial encounter Fracture type: closed Laterality: left Qualified Codes: S72.002A - Fracture of unspecified part of neck of left femur, initial encounter for closed fracture Additional Impression: Fall Encounter type: initial encounter Qualified Codes: W19.XXXA - Unspecified fall, initial encounter Condition: GABBY Clemons MD Oct 07, 2018 09:43
[2018-10-07 10:03] VITALS: BP 136/60; PULSE 94; RESP 16
[2018-10-07] MEDS ORDERED: NACL 0.9% 3 ML SYG IV SCH (11:30)
[2018-10-07] MEDS ORDERED: DOCUSATE SODIUM 100 MG CAP PO PRN (11:30)
[2018-10-07] MEDS ORDERED: HYDROCODONE/APAP (5/325) TAB PO PRN (11:30)
[2018-10-07] MEDS ORDERED: morphine SULFATE/PF (2 MG/2 ML) SYG IV PRN (11:30)
[2018-10-07 12:00] VITALS: Ht 172.7 cm; Wt 75.0 kg
--- NOTE | 2018-10-07 14:47 | RADRPT ---
Echocardiogram Report Patient Name: JEFFREY DUPONT Gender: Male Date: 1940 Study Date: 07-Oct-2018 Project Surveyor: Tad Mesa [facility] Location: 2273 Ref. Physician: ERNESTO REESE Quality: Technically Difficult Study Procedures: Transthoracic echocardiogram with complete 2D, M-Mode, and doppler examination. Indications: Evaluate Left Ventricular function. Pre-op. 2D/M Mode Doppler Measurement Value Normal Ranges Measurement Value Normal Ranges LVIDd 2D 4.3 3.5 - 5.6 cm AV Peak Ibrahima 4.0 m/sec LVIDs 2D 2.8 2.1 - 4.1 cm AV Peak PG 64.0 mmHg LVPWd 2D 1.3 0.6 - 1.1 cm LVOT Peak Ibrahima 1.1 m/sec IVSd 2D 1.4 0.6 - 1.1 cm LVOT Peak PG 5.0 mmHg AoR Diam 2D 3.2 2.0 - 3.7 cm MV E Peak Ibrahima 0.6 m/sec LA/Ao 2D 1 0 - 1 MV A Peak Ibrahima 0.8 m/sec LA Dimen 2D 3.4 2.3 - 4.0 cm MV E/A 0.7 MV Decel Time 183 msec Lat E` Ibrahima 0.1 m/sec Lateral E/E` 8.6 MV E/A 0.7 TR Peak Ibrahima 2.9 m/sec TR Peak PG 33.0 mmHg RVSP 36.0 mmHg RA Pressure 3.0 Findings Left Ventricle: Normal left ventricular systolic function. Normal left ventricular cavity size. Normal left ventricular wall thickness. Ejection fraction is visually estimated at 65 %. Right Ventricle: Normal right ventricular size. Normal right ventricular systolic function. Left Atrium: There is mild enlargement of left atrium. Right Atrium: The right atrium is normal in size. Mitral Valve: Normal appearance of the mitral valve. Mild mitral annular calcification. Trace mitral regurgitation. Aortic Valve: Normal appearance of the aortic valve. No significant aortic stenosis or insufficiency. Tricuspid Valve: Normal appearance of the tricuspid valve. Estimated peak PA systolic pressure 36 mmHg. There is trace tricuspid regurgitation. Pulmonic Valve: Normal pulmonic valve appearance. Pericardium: Normal pericardium with no significant pericardial effusion. Aorta: Normal aortic root. IVC: Normal size and normal respiratory collapse consistent with normal right atrial pressure. Conclusions Normal left ventricular systolic function. Normal left ventricular cavity size. Normal left ventricular wall thickness. Ejection fraction is visually estimated at 65 %. No significant valvular stenosis or regurgitation seen. Normal appearance of the tricuspid valve. Estimated peak PA systolic pressure 36 mmHg. There is trace tricuspid regurgitation. Electronically Signed By: Garry Minaya 07-Oct-2018 14:45:59 -0800 Patient Name: JEFFREY DUPONT Study Date: 07-Oct-2018 [id number]
[2018-10-07 14:57] VITALS: BP 133/68; PULSE 98; RESP 16
--- NOTE | 2018-10-07 15:26 | HP ---
Date/Time of Note Date/Time of Note DATE: 10/07/18 TIME: 15:22 Assessment/Plan VTE Prophylaxis SCD applied (from Nsg): Yes Pharmacological prophylaxis: NA/contraindicated Pharm contraindication: liver dx Lines/Catheters IV Catheter Type (from Nrsg): Saline Lock Assessment/Plan Hospital Course SUBJECTIVE: Elderly, chronically ill looking male, mostly nonverbal, not in acute distress. OBJECTIVE: Vital signs-see below PHYSICAL EXAM: Constitutional: Elderly, pale looking [place]er male, not in acute distress. Psych: nl mood/affect, no complaints Head: atraumatic, normocephalic Eyes: nl conjunctiva, nl sclera ENMT: mucosa pink and moist, nl external ears & nose Neck: non-tender, supple Respiratory: Diminished bibasilar. Clear to auscultation, normal air movement Cardiovascular: nl pulses, regular rate and rhythm Gastrointestinal: non-tender, soft, bowel sounds active in all 4 quadrants. Musculoskeletal/extremities: Pain with left leg movement. Otherwise nl extremities to inspection, motor strength equal bilaterally, no focal deficit. Normal pulses,no cyanosis, no edema. Neurological: Mostly nonverbal. Disoriented x4. Skin: Jaundiced/pale. Nl turgor ASSESSMENT/PLAN: 78-year old male with liver cirrhosis, status post TIPS, pancytopenia, prostate cancer, status post resection of bladder and prostate in December 2017, here with mechanical fall/left hip fracture 1. Mechanical fall with left femur fracture. -Orthopedic consult with Dr. Gill has been requested from ER. -N.p.o. except medications, IV pain meds, nonweightbearing on LLE -Secondary to liver disease, would hold off anticoagulation and will place SCDs bilaterally 2. Thrombocytopenia of liver disease -Avoid antiplatelet/anticoagulation. -Monitor CBC 3.Liver cirrhosis, status post TIPS -Monitor LFTs 4.Prostate cancer with bladder invasion, status post resection of bladder and prostate in December 2017 -No acute issues -Patient has outpatient follow-up with his urologist Dr Arzate 5. Anemia of liver disease -Stable H&H. Will obtain a folate/B12 level 6. Debility -Supportive care. Currently no family available at bedside and will discuss goals of care with him in the morning. DVT prophylaxis: SCDs PUD prophylaxis: Protonix CODE STATUS: Full code Diet: N.p.o. except medications Disposition: Continue current medical management. Obtain TTE, EKG in anticipation for preop clearance if surgery is warranted. Follow-up orthopedic recommendations. Approximately 60 m spent on this history and physical. Patient is an evaluation by Dr. Patel. Result Diagram: 10/07/18 0830 10/07/18 0830 Results 24hrs Laboratory Tests Test 10/07/18 08:30 White Blood Count 6.0 # Red Blood Count 2.63 L Hemoglobin 9.0 L Hematocrit 28.3 L Mean Corpuscular Volume 107.6 H Mean Corpuscular Hemoglobin 34.2 H Mean Corpuscular Hemoglobin Concent 31.8 L Red Cell Distribution Width 17.5 H Platelet Count 57 L Mean Platelet Volume 9.3 Immature Granulocytes % 0.500 H Neutrophils % 56.2 Lymphocytes % 28.4 Monocytes % 11.3 H Eosinophils % 3.4 Basophils % 0.2 Nucleated Red Blood Cells % 0.0 Immature Granulocytes # 0.030 Neutrophils # 3.4 Lymphocytes # 1.7 Monocytes # 0.7 Eosinophils # 0.2 Basophils # 0.0 Nucleated Red Blood Cells # 0.0 Prothrombin Time 19.2 H Prothrombin Time Ratio 1.5 INR International Normalized Ratio 1.61 Activated Partial Thromboplast Time 34.4 Sodium Level 138 Potassium Level 4.9 Chloride Level 117 H Carbon Dioxide Level 20 L Anion Gap 1 L Blood Urea Nitrogen 31 H Creatinine 1.14 Est Glomerular Filtrat Rate mL/min Glucose Level 99 Calcium Level 10.2 Total Bilirubin 2.0 H Direct Bilirubin 0.00 Indirect Bilirubin 2.0 H Aspartate Amino Transf (AST/SGOT) 38 Alanine Aminotransferase (ALT/SGPT) 33 Alkaline Phosphatase 74 Ammonia < 9 L Troponin I 0.019 Total Protein 5.1 L Albumin 2.1 L Globulin 3.00 Albumin/Globulin Ratio 0.70 HPI/ROS Admit Date/Time Admit Date/Time Oct 07, 2018 at 08:36 Hx of Present Illness This is a 78-year-old male with numerous medical problems including encephalopathy, liver cirrhosis, status post TIPS, pancytopenia, prostate cancer, status post resection of bladder and prostate in December 2017, who was brought in with left leg pain secondary to fall. Patient denied any head trauma. Apparently patient was recently discharged on discharge 4 days ago from [facility] where he was treated for septic shock from urine infection, encephalopathy, and acute kidney injury. Patient is mostly nonverbal. However, he does not seem to be in any acute distress. He kept pointing to his left leg and moans. Initial labs hemoglobin 9.0, hematocrit 28.3, platelet 57.X-ray showed left femur closed fracture. CT brain with no head injuries. In ER, patient was given pain medicine and an orthopedic consult was called. ROS A 12 point review of system was assessed and is negative other than what is mentioned in the HPI. PMH/Family/Social Past Medical History See HPI Medications Current Medications Ondansetron HCl (Zofran Inj) 4 mg BRIDGE ORDER PRN IV NAUSEA AND/OR VOMITING; Start 10/07/18 at 09:00; Stop 10/08/18 at 08:59 Acetaminophen (Tylenol Tab) 650 mg ER BRIDGE PRN PO MILD PAIN(1-3)OR ELEVATED TEMP; Start 10/07/18 at 09:00; Stop 10/08/18 at 08:59 Levothyroxine Sodium (Synthroid) 125 mcg BEFORE BREAKFAST PO ; Start 10/08/18 at 07:00 Pantoprazole (Protonix Tab) 40 mg DAILY@06 PO ; Start 10/08/18 at 06:00 IV Flush (NS 3 ml) 3 ml PER PROTOCOL IV ; Start 10/07/18 at 11:30 Ondansetron HCl (Zofran Inj) 4 mg Q6H PRN IV NAUSEA AND/OR VOMITING; Start 10/07/18 at 11:30 Acetaminophen (Tylenol Tab) 650 mg Q6H PRN PO PAIN LEVEL 1-3 OR FEVER; Start 10/07/18 at 11:30 Acetaminophen/ Hydrocodone Bitart ([place] (5/325)) 1 tab Q6H PRN PO MODERATE PAIN LEVEL 4-6; Start 10/07/18 at 11:30 Morphine Sulfate (morphine SULFATE (PF)) 2 mg Q4H PRN IV SEVERE PAIN LEVEL 7- 10; Start 10/07/18 at 11:30 Docusate Sodium (Colace) 100 mg Q12H PRN PO CONSTIPATION; Start 10/07/18 at 11:30 Enoxaparin Sodium (Lovenox) 40 mg DAILY SC ; Start 10/08/18 at 09:00 Coded Allergies: No Known Drug Allergies (Verified Allergy, Unknown, 10/07/18) Past Surgical History See HPI Past Surgical Hx: other Family History Significant Family History: no pertinent family hx Social History Denied history of alcohol, smoking or illicit drug use. Smoking Status: Never smoker Exam/Review of Systems Vital Signs Vitals Vital Signs Date Temp Pulse Resp B/P (MAP) Pulse Ox O2 O2 Flow FiO2 Time Delivery Rate 10/07/18 98.0 98 16 133/68 93 14:57 (89) 10/07/18 Room Air 10:03 ERNESTO REESE NP Oct 07, 2018 15:26
[2018-10-07 19:53] VITALS: BP 139/66; PULSE 103; RESP 17
[2018-10-07] MEDS: SOD CHLORIDE 0.9% 1,000 ML IV SCH (23:45)
[2018-10-08 02:11] VITALS: BP 137/60; PULSE 96; RESP 18
[2018-10-08] MEDS: PANTOPRAZOLE (EC) 40 MG TAB PO SCH (06:00)
[2018-10-08] MEDS: LEVOTHYROXINE 125 MCG TAB PO SCH (06:16)
[2018-10-08 08:11] VITALS: BP 125/58; PULSE 91; RESP 18
[2018-10-08] MEDS ORDERED: ENOXAPARIN 40 MG/0.4 ML SYG SC SCH (09:00)
[2018-10-08] MEDS ORDERED: NON-FORMULARY/PATIENT OWN MED (Abiraterone Acetate (Zytiga) 1,000 MG) PO SCH (14:30)
[2018-10-08 14:41] VITALS: BP 128/57; PULSE 96; RESP 18
--- NOTE | 2018-10-08 14:55 | PN ---
Date/Time of Note Date/Time of Note DATE: 10/08/18 TIME: 14:50 Assessment/Plan VTE Prophylaxis Risk score (from Ns)>0 risk: 5 SCD applied (from Ns): Yes Pharmacological prophylaxis: NA/contraindicated Pharm contraindication: liver dx Lines/Catheters IV C[facility] Type [facility]from [facility] Saline Lock Urinary Cath still in place: Yes Reason Cath still needed: urinary retention Assessment/Plan Hospital Course SUBJECTIVE: No acute distress. OBJECTIVE: Vital signs-see below PHYSICAL EXAM: Constitutional: Elderly, pale looking [place] male, not in acute distress. Psych: nl mood/affect, no complaints Head: atraumatic, normocephalic Eyes: nl conjunctiva, nl sclera ENMT: mucosa pink and moist, nl external ears & nose Neck: non-tender, supple Respiratory: Diminished bibasilar. Clear to auscultation, normal air movement Cardiovascular: nl pulses, regular rate and rhythm Gastrointestinal: non-tender, soft, bowel sounds active in all 4 quadrants. Musculoskeletal/extremities: Pain with left leg movement. Otherwise nl extremities to inspection, motor strength equal bilaterally, no focal deficit. Normal pulses,no cyanosis, no edema. Neurological: Alert oriented x2. Disoriented to time and situation. Malaysian- speaking. Noncoherent speech. Skin: Jaundiced/pale. Nl turgor ASSESSMENT/PLAN: 78-year old male with liver cirrhosis, status post TIPS, pancytopenia, prostate cancer, status post resection of bladder and prostate in December 2017, here with mechanical fall/left hip fracture 1. Mechanical fall with left femur fracture. -I spoke with Dr. Gill and will plan on orthopedic surgical intervention tomorrow. -N.p.o. post midnight, IV pain meds, nonweightbearing on LLE -Secondary to liver disease, would hold off anticoagulation and will place SCDs bilaterally 2. Recurrent UTI with chronic indwelling catheter -UA noted. Will start ceftriaxone and obtain urine culture. -Vaughn was recently changed a week ago and family not receptive to change it again at this time. -We will await for urine culture and will intervene as needed. 3. Thrombocytopenia of liver disease -Avoid antiplatelet/anticoagulation. -Monitor CBC 4.Alcoholic liver cirrhosis, status post TIPS -Monitor LFTs 5.Prostate cancer with bladder invasion, status post resection of bladder and prostate in December 2017 -Patient has outpatient follow-up with his urologist Dr Arzate -We will resume home Zytiga 6. Anemia of liver disease -Stable H&H. 7. Debility -Supportive care. DVT prophylaxis: SCDs PUD prophylaxis: Protonix CODE STATUS: Full code Diet: N.p.o. except medications Disposition: Continue current medical management. Plan is orthopedic surgical intervention for left femur fracture likely tomorrow. Given patient's medical condition/advanced liver disease, patient is at a intermediate to high risk for any untoward medical events for surgery. However, benefit likely outweigh risks and recommended to have surgical intervention. Patient is an evaluation by Result Diagram: 10/08/1848 10/08/1848 Results 24hrs Laboratory Tests Test 10/07/18 20:40 10/08/18 05:48 Urine Color AYE Urine Clarity TURBID A Urine pH 5.0 Urine Specific [place] 1.018 Urine Ketones TRACE A Urine Nitrite NEGATIVE Urine Bilirubin NEGATIVE Urine Urobilinogen 2+ H Urine Leukocyte Esterase 2+ H Urine Microscopic RBC > 182 H Urine Microscopic WBC > 182 H Urine Amorphous Crystals FEW A Urine Bacteria FEW A Urine Mucus MODERATE Urine Hemoglobin 3+ H Urine Glucose NEGATIVE Urine Total Protein 1+ H White Blood Count 5.4 Red Blood Count 2.51 L Hemoglobin 8.5 L Hematocrit 26.8 L Mean Corpuscular Volume 106.8 H Mean Corpuscular Hemoglobin 33.9 H Mean Corpuscular Hemoglobin Concent 31.7 L Red Cell Distribution Width 17.7 H Platelet Count 49 L Mean Platelet Volume 9.0 Immature Granulocytes % 0.400 Neutrophils % 57.4 Lymphocytes % 27.1 Monocytes % 11.2 H Eosinophils % 3.5 Basophils % 0.4 Nucleated Red Blood Cells % 0.0 Immature Granulocytes # 0.020 Neutrophils # 3.1 Lymphocytes # 1.5 Monocytes # 0.6 Eosinophils # 0.2 Basophils # 0.0 Nucleated Red Blood Cells # 0.0 Sodium Level 143 Potassium Level 4.4 Chloride Level 116 H Carbon Dioxide Level 18 L Anion Gap 9 # Blood Urea Nitrogen 34 H Creatinine 1.00 Est Glomerular Filtrat Rate mL/min Glucose Level 80 Calcium Level 9.9 Phosphorus Level 2.4 L Magnesium Level 2.3 Total Bilirubin 2.1 H Direct Bilirubin 0.00 Indirect Bilirubin 2.1 H Aspartate Amino Transf (AST/SGOT) 27 Alanine Aminotransferase (ALT/SGPT) 30 Alkaline Phosphatase 63 Total Protein 5.0 L Albumin 1.9 L Globulin 3.10 Albumin/Globulin Ratio 0.61 Vitamin B12 Level 687 Folate 4.9 Exam/Review of Systems Vital Signs Vitals Vital Signs Date Temp Pulse Resp B/P (MAP) Pulse Ox O2 O2 Flow FiO2 Time Delivery Rate 10/08/18 99.1 96 18 128/57 94 Room Air 14:41 (80) Intake and Output 10/07/18 10/07/18 10/08/18 1515:00 23:00 07:00 IntakeIntake Total 480 ml OutputOutput Total 300 ml BalanceBalance -300 ml 480 ml Medications Medications Current Medications Levothyroxine Sodium (Synthroid) 125 mcg BEFORE BREAKFAST PO ; Start 10/08/18 at 07:00 Pantoprazole (Protonix Tab) 40 mg DAILY@06 PO ; Start 10/08/18 at 06:00 IV Flush (NS 3 ml) 3 ml PER PROTOCOL IV ; Start 10/07/18 at 11:30 Ondansetron HCl (Zofran Inj) 4 mg Q6H PRN IV NAUSEA AND/OR VOMITING; Start 10/07/18 at 11:30 Acetaminophen (Tylenol Tab) 650 mg Q6H PRN PO PAIN LEVEL 1-3 OR FEVER; Start 10/07/18 at 11:30 Acetaminophen/ Hydrocodone Bitart ([place] (5/325)) 1 tab Q6H PRN PO MODERATE PAIN LEVEL 4-6; Start 10/07/18 at 11:30 Morphine Sulfate (morphine SULFATE (PF)) 2 mg Q4H PRN IV SEVERE PAIN LEVEL 7- 10; Start 10/07/18 at 11:30 Docusate Sodium (Colace) 100 mg Q12H PRN PO CONSTIPATION; Start 10/07/18 at 11:30 Sodium Chloride 1,000 ml @ 80 mls/hr [id number] IV Last administered on 10/07/18at 23:45; Admin Dose 80 MLS/HR; Start 10/07/18 at 23:30 Miscellaneous Information 1,000 mg DAILY PO ; Start 10/08/18 at 14:30; Status UNV Patient Own Medication 1 ea DAILY PO ; Start 10/08/18 at 15:00; Status UNV Ceftriaxone Sodium 50 ml @ 100 mls/hr Q24H IVPB ; Start 10/08/18 at 15:00 ERNESTO REESE NP Oct 08, 2018 14:55
[2018-10-08] MEDS: CEFTRIAXONE 1 GM/50 ML (PMX) 50 ML IVPB SCH (15:59)
[2018-10-08] MEDS: SOD CHLORIDE 0.9% 1,000 ML IV SCH (16:02)
[2018-10-08 19:30] VITALS: BP 127/61; PULSE 96; RESP 18
[2018-10-08] MEDS: [UNRECOGNIZED DRUG - OTHER] PO SCH (21:04)
[2018-10-09] VITALS (35 sets, daily range): BP systolic 79–146; BP diastolic 50–74; PULSE 84–130; RESP 12–29
[2018-10-09] MEDS: SOD CHLORIDE 0.9% 1,000 ML IV SCH ×4 (00:30→20:02)
[2018-10-09] MEDS: LEVOTHYROXINE 125 MCG TAB PO SCH (05:33)
[2018-10-09] MEDS: PANTOPRAZOLE (EC) 40 MG TAB PO SCH (05:34)
[2018-10-09] MEDS: [UNRECOGNIZED DRUG - OTHER] PO SCH (08:16)
--- NOTE | 2018-10-09 11:56 | PN ---
Date/Time of Note Date/Time of Note DATE: 10/09/18 TIME: 11:53 Assessment/Plan VTE Prophylaxis Risk score (from [facility])>0 risk: 11 SCD applied (from [facility]): Yes Pharmacological prophylaxis: NA/contraindicated Pharm contraindication: liver dx Lines/Catheters IV Catheter Type (from [facility]): Peripheral IV Urinary Cath still in place: Yes Reason Cath still needed: urinary retention Assessment/Plan Hospital Course SUBJECTIVE: No acute distress. OBJECTIVE: Vital signs-see below PHYSICAL EXAM: Constitutional: Elderly, pale looking [place] male, not in acute distress. Psych: nl mood/affect, no complaints Head: atraumatic, normocephalic Eyes: nl conjunctiva, nl sclera ENMT: mucosa pink and moist, nl external ears & nose Neck: non-tender, supple Respiratory: Diminished bibasilar. Clear to auscultation, normal air movement Cardiovascular: nl pulses, regular rate and rhythm Gastrointestinal: non-tender, soft, bowel sounds active in all 4 quadrants. Musculoskeletal/extremities: Pain with left leg movement. Otherwise nl extremities to inspection, motor strength equal bilaterally, no focal deficit. Normal pulses,no cyanosis, no edema. Neurological: Alert oriented x2. Disoriented to time and situation. [place]- speaking. Noncoherent speech. Skin: Jaundiced/pale. Nl turgor ASSESSMENT/PLAN: 78-year old male with liver cirrhosis, status post TIPS, pancytopenia, prostate cancer, status post resection of bladder and prostate in December 2017, here with mechanical fall/left hip fracture 1. Mechanical fall with left femur fracture. -Scheduled for orthopedic surgical intervention today. -Postoperative weightbearing, diet, anticoagulation per orthopedic surgery. 2. Recurrent UTI with chronic indwelling catheter -UA noted. Cultures negative. Continue ceftriaxone for now. -Chavez was recently changed a week ago 3. Thrombocytopenia of liver disease -Stable -Avoid antiplatelet/anticoagulation. -Monitor CBC 4.Alcoholic liver cirrhosis, status post TIPS -Monitor LFTs 5.Prostate cancer with bladder invasion, status post resection of bladder and prostate in December 2017 -Patient has outpatient follow-up with his urologist Dr Arzate -Continue home Zytiga along with prednisone. -[email or web address] 6. Anemia of liver disease -Stable H&H. 7. Debility -Supportive care. DVT prophylaxis: SCDs PUD prophylaxis: Protonix CODE STATUS: Full code Diet: N.p.o. except medications Disposition: Follow-up post op recommendations. Given patient's medical condition/advanced liver disease, patient is at a intermediate to high risk for any untoward medical events for surgery. However, benefit likely outweigh risks and recommended to have surgical intervention. Patient is an evaluation by Result Diagram: 10/09/18 0437 10/09/18 0437 Results 24hrs Laboratory Tests Test 10/09/18 04:37 White Blood Count 4.3 #L Red Blood Count 2.81 L Hemoglobin 9.2 L Hematocrit 29.0 L Mean Corpuscular Volume 103.2 H Mean Corpuscular Hemoglobin 32.7 Mean Corpuscular Hemoglobin Concent 31.7 L Red Cell Distribution Width 19.1 H Platelet Count 47 L Mean Platelet Volume 9.0 Immature Granulocytes % 0.200 Neutrophils % 55.8 Lymphocytes % 30.8 Monocytes % 9.9 Eosinophils % 2.8 Basophils % 0.5 Nucleated Red Blood Cells % 0.0 Immature Granulocytes # 0.010 Neutrophils # 2.4 Lymphocytes # 1.3 Monocytes # 0.4 Eosinophils # 0.1 Basophils # 0.0 Nucleated Red Blood Cells # 0.0 Sodium Level 144 Potassium Level 3.9 Chloride Level 118 H Carbon Dioxide Level 18 L Anion Gap 8 Blood Urea Nitrogen 31 H Creatinine 0.85 Est Glomerular Filtrat Rate mL/min Glucose Level 86 Calcium Level 9.7 Exam/Review of Systems Vital Signs Vitals Vital Signs Date Temp Pulse Resp B/P (MAP) Pulse Ox O2 O2 Flow FiO2 Time Delivery Rate 10/09/18 98.8 85 16 124/60 93 Room Air 07:29 (81) Intake and Output 10/08/18 10/08/18 10/09/18 1515:00 23:00 07:00 IntakeIntake Total 1260 ml 730 ml OutputOutput Total 450 ml 400 ml 300 ml BalanceBalance -450 ml 860 ml 430 ml Medications Medications Current Medications Levothyroxine Sodium (Synthroid) 125 mcg BEFORE BREAKFAST PO Last administered on 10/09/18at 05:33; Admin Dose 125 MCG; Start 10/08/18 at 07:00 Pantoprazole (Protonix Tab) 40 mg DAILY@06 PO Last administered on 10/09/18at 05:34; Admin Dose 40 MG; Start 10/08/18 at 06:00 IV Flush (NS 3 ml) 3 ml PER PROTOCOL IV ; Start 10/07/18 at 11:30 Ondansetron HCl (Zofran Inj) 4 mg Q6H PRN IV NAUSEA AND/OR VOMITING; Start 10/07/18 at 11:30 Acetaminophen (Tylenol Tab) 650 mg Q6H PRN PO PAIN LEVEL 1-3 OR FEVER; Start 10/07/18 at 11:30 Acetaminophen/ Hydrocodone Bitart ([place] (5/325)) 1 tab Q6H PRN PO MODERATE PAIN LEVEL 4-6; Start 10/07/18 at 11:30 Morphine Sulfate (morphine SULFATE (PF)) 2 mg Q4H PRN IV SEVERE PAIN LEVEL 7- 10; Start 10/07/18 at 11:30 Docusate Sodium (Colace) 100 mg Q12H PRN PO CONSTIPATION; Start 10/07/18 at 1 1:30 Sodium Chloride 1,000 ml @ 80 mls/hr [id number] IV Last administered on 10/09/18at 06:17; Admin Dose 80 MLS/HR; Start 10/07/18 at 23:30 Patient Own Medication 4 ea DAILY PO Last administered on 10/08/18at 21:04; Admin Dose 4 EA; Start 10/08/18 at 17:00 Ceftriaxone Sodium 50 ml @ 100 mls/hr Q24H IVPB Last administered on 10/08/18at 15:59; Admin Dose 100 MLS/HR; Start 10/08/18 at 15:00 ERNESTO REESE NP Oct 09, 2018 11:56
[2018-10-09] MEDS: predniSONE 5 MG TAB PO SCH ×2 (13:00→20:44)
[2018-10-09] MEDS: CEFTRIAXONE 1 GM/50 ML (PMX) 50 ML IVPB SCH (15:00)
[2018-10-09] MEDS ORDERED: POLYMYXIN/BACITRACIN 1L IRRIG ONE (15:25)
--- NOTE | 2018-10-09 15:27 | PREAC ---
Date/Time of Note Date/Time of Note DATE: 10/09/18 TIME: 15:24 Anesthesia Eval and Record Evaluation Time Pre-Procedure Interview DATE: 10/09/18 TIME: 15:24 Age 78 Sex male NPO: 8 hrs Preoperative diagnosis Lt Hip fracture Planned procedure Lt Hip ORIF Past Medical History Past Medical History: Includes Endo: Hypothyroid Hepatic: Alcohol abuse, Cirrhosis Heme: Anemia, Coagulation disorder Surgery & Anesthesia Issues No known issue Meds Anticoagulation: No Beta Ludwin within 24 hr: No Reason Beta Ludwin not given: Pt. not on B-Ludwin Active Scripts Lactulose* (Lactulose*) 20 Gm/30 Ml Solution, 20 GM PO BID, #60 BOTTLE 1 Refill Prov:UZIEL ABDI 10/03/18 Tramadol HCl (Tramadol HCl) 50 Mg Tablet, 50 MG PO Q6H PRN for PAIN, #60 TAB Prov:UZIEL ABDI 07/07/18 Reported Medications Abiraterone Acetate (ZYTIGA) 250 Mg Tablet, 1000 MG PO DAILY, TAB 10/01/18 Prednisone* (Prednisone*) 5 Mg Tab, 5 MG PO BID, TAB 10/01/18 Hydrocodone/Acetaminophen ([place] 5-325 Tablet) 1 Each Tablet, 1 EACH PO Q6H, TAB 10/01/18 Sulfamethoxazole/Trimethoprim* (Bactrim Ds* Tablet) 1 Each Tablet, 1 TAB PO BID, TAB 10/01/18 Omeprazole* (Omeprazole*) 40 Mg Capsule.dr, 40 MG PO AC BREAKFAST, #30 CAP 07/02/18 Levothyroxine Sodium* (Levothyroxine Sodium*) 125 Mcg Tablet, 125 MCG PO BEFORE BREAKFAST, #30 TAB 07/02/18 Current Medications Levothyroxine Sodium (Synthroid) 125 mcg BEFORE BREAKFAST PO Last administered on 10/09/18at 05:33; Admin Dose 125 MCG; Start 10/08/18 at 07:00 Pantoprazole (Protonix Tab) 40 mg DAILY@06 PO Last administered on 10/09/18at 05:34; Admin Dose 40 MG; Start 10/08/18 at 06:00 IV Flush (NS 3 ml) 3 ml PER PROTOCOL IV ; Start 10/07/18 at 11:30 Ondansetron HCl (Zofran Inj) 4 mg Q6H PRN IV NAUSEA AND/OR VOMITING; Start 10/07/18 at 11:30 Acetaminophen (Tylenol Tab) 650 mg Q6H PRN PO PAIN LEVEL 1-3 OR FEVER; Start 10/07/18 at 11:30 Acetaminophen/ Hydrocodone Bitart ([place] (5/325)) 1 tab Q6H PRN PO MODERATE PAIN LEVEL 4-6; Start 10/07/18 at 11:30 Morphine Sulfate (morphine SULFATE (PF)) 2 mg Q4H PRN IV SEVERE PAIN LEVEL 7- 10; Start 10/07/18 at 11:30 Docusate Sodium (Colace) 100 mg Q12H PRN PO CONSTIPATION; Start 10/07/18 at 11:30 Sodium Chloride 1,000 ml @ 80 mls/hr [id number] IV Last administered on 10/09/18at 06:17; Admin Dose 80 MLS/HR; Start 10/07/18 at 23:30 Patient Own Medication 4 ea DAILY PO Last administered on 10/08/18at 21:04; Admin Dose 4 EA; Start 10/08/18 at 17:00 Ceftriaxone Sodium 50 ml @ 100 mls/hr Q24H IVPB Last administered on 10/08/18at 15:59; Admin Dose 100 MLS/HR; Start 10/08/18 at 15:00 Prednisone (Prednisone) 5 mg BID PO ; Start 10/09/18 at 13:00 Meds reviewed: Yes Allergies Coded Allergies: No Known Drug Allergies (Verified Allergy, Unknown, 10/07/18) Allergies Reviewed: Yes Labs/Studies Labs Reviewed: Reviewed by anesthesiologist Result Diagram: 10/09/18 0437 10/09/18 0437 Laboratory Tests 10/09/18 04:37 Blood Bank Test 10/08/18 21:16 Antibody Screen NEGATIVE Blood Product Summary Counts Blood Type O POSITIVE Crossmatch Red Blood Cells test: N/A Studies: ECG Pre-procedure Exam Last vitals Vital Signs Date Temp Pulse Resp B/P (MAP) Pulse Ox O2 O2 Flow FiO2 Time Delivery Rate 10/09/18 98.8 85 16 124/60 93 Room Air 07:29 (81) Airway: Adequate mouth opening, Adequate thyromental dist Mallampati: Mallampati II Teeth: Normal Lung: Normal Heart: Normal ASA Physical Status ASA physical status: 4 Emergency: None Planned Anesthetic General/MAC: LMA Planned Pain Management Single shot nerve block, Parenteral pain med Pre-operative Attestations Prior to commencing anesthesia and surgery, the patient was re-evaluated, there was verification of: *The patient's identity *The results of appropriate recent lab work and preoperative vital signs *The above evaluation not changing prior to induction *Anesthetic plan, risk benefits, alternative and complications discussed with patient/family; questions answered; patient/family understands, accepts and wishes to proceed. ALEX ZARAGOZA MD Oct 09, 2018 15:27
[2018-10-09] MEDS ORDERED: MIDAZOLAM 1 MG/ML 2 ML INJ ONE (15:47)
[2018-10-09] MEDS ORDERED: FENTAnyl 50 MCG/ML VIAL ONE ×2 (15:48→16:17)
[2018-10-09] MEDS ORDERED: CEFAZOLIN 1 GM INJ ONE (16:01)
[2018-10-09] MEDS ORDERED: FUROSEMIDE 20 MG INJ ONE ×2 (16:42→16:46)
[2018-10-09] MEDS ORDERED: ONDANSETRON 4 MG INJ ONE (17:11)
[2018-10-09] MEDS ORDERED: ETOMIDATE 20 MG INJ ONE (17:11)
[2018-10-09] MEDS ORDERED: LIDOCAINE 2% (SDV) 5 ML INJ ONE (17:11)
[2018-10-09] MEDS ORDERED: HYDROmorphONE 1 MG/ML SYG IV PRN (17:30)
[2018-10-09] MEDS ORDERED: NACL 0.9% 3 ML SYG IV SCH (17:30)
[2018-10-09] MEDS ORDERED: HYDROCODONE/APAP (5/325) TAB PO PRN (17:30)
[2018-10-09] MEDS ORDERED: DOCUSATE SODIUM 100 MG CAP PO ONE (17:30)
--- NOTE | 2018-10-09 17:39 | PAC ---
Date/Time of Note Date/Time of Note DATE: 10/09/18 TIME: 17:38 Post-Anesthesia Notes Post-Anesthesia Note Last documented vital signs Vital Signs Date Temp Pulse Resp B/P (MAP) Pulse Ox O2 O2 Flow FiO2 Time Delivery Rate 10/09/18 98.0 17:34 10/09/18 85 16 124/60 93 Room Air 07:29 (81) Activity: WNL Respiratory function: WNL Cardiovascular function: WNL Mental status: Baseline Pain reasonably controlled: Yes Hydration appropriate: Yes Nausea/Vomiting absent: Yes Comments BP:100/58, pulse:94, spo2:100%, T:98,8 ALEX ZARAGOZA MD Oct 09, 2018 17:39
--- NOTE | 2018-10-09 17:39 | SIPON ---
Date/Time of Note Date/Time of Note DATE: 10/09/18 TIME: 17:34 Operative Report Preoperative Diagnosis intertrochanteric fracture of left hip Postoperative Diagnosis same Operation/Procedure Performed O.R.I.F. of intertrochanteric fracture of Left hip Surgeon see signature line mobile sales assistant none Anesthesia: general Estimated blood loss: 10 - 50 ml's Transfusion Required none Specimen none Grafts/Implants gamma nail Complications none MINGO HOWELL MD Oct 09, 2018 17:39
[2018-10-09] MEDS ORDERED: HYDROmorphONE 1 MG/5 ML IV SYRINGE IV PRN ×2 (18:00)
[2018-10-09] MEDS ORDERED: FENTAnyl 50 MCG/ML VIAL IV PRN (18:00)
[2018-10-09] MEDS ORDERED: DIPHENHYDRAMINE 50 MG INJ IV PRN (18:00)
[2018-10-09] MEDS ORDERED: METOCLOPRAMIDE 10 MG INJ IV PRN (18:00)
[2018-10-09] MEDS ORDERED: LABETALOL HCL 20MG INJ IV PRN (18:00)
[2018-10-09] MEDS ORDERED: ONDANSETRON 4 MG INJ IV PRN (18:00)
--- NOTE | 2018-10-09 19:55 | OPR ---
DATE OF OPERATION: 10/09/2018 PREOPERATIVE DIAGNOSIS: Intertrochanteric fracture of the left hip. POSTOPERATIVE DIAGNOSIS: Intertrochanteric fracture of the left hip. OPERATION PERFORMED: Open reduction and internal fixation of the intertrochanteric fracture of the l eft hip utilizing short Gamma nail. ANESTHESIA: General anesthesia. SURGEON: Nate Howell MD PROCEDURE AND FINDINGS: Under anesthesia, the patient was placed in supine position utilizing fractu re table and under fluoroscopic monitoring, preliminary manipulative reduction of the left hip was ca rried out until an acceptable alignment could be achieved. Usual prep and drape was done exposing the left hip and left thigh. Through the small lateral longitudinal incision over the trochanteric area, the trochanteric area was approached. After opening fascia nicole, tip of the greater trochanter was identified and through thi s tip, intramedullary canal was entered with the guide drill. After confirming satisfactory position of the guide drill, opening was enlarged with the cannulated drill and the prepared short Gamma nail in the size of 180 mm x 11 mm with the 125-degree angle was inserted. After proper rotatory adjustm ent, guide pin for the lag screw was positioned and the measurement revealed that the length of the l ag screw should be 105 mm. After reaming along the guide pin, 105 mm lag screw was screwed in. Afte r confirming satisfactory position and after obtaining some compression at the fracture site, lag scr ew was locked. Finally, in order to stabilize the entire system, 1 distal locking screw was inserted at the static position. After confirming satisfactory alignment of the fracture and proper position of the fixation device an d after irrigation and hemostasis, closure of the incision was carried out using 0 Vicryl for muscle and fascia and 2-0 Vicryl for subcutaneous tissues. Final skin closure was carried out with skin sta ples. Usual sterile pressure dressings were applied. The patient tolerated the entire procedure very well and was sent to the recovery room in good condit ion. Dictated By: NATE HOWELL MD IK/NTS Conf#: [id number] DID#: [id number] CC: NORBERTO REDDY MD;*EndCC*
[2018-10-09] MEDS: CEFAZOLIN 2 GM/50 ML (PMX) 50 ML IVPB SCH (20:03)
[2018-10-10 01:39] VITALS: BP 137/63; PULSE 99; RESP 18
--- NOTE | 2018-10-10 01:50 | RADRPT ---
Vent Rate: 92 bpm RR Interval: 0 msec KS Interval: 142 msec QRS Duration: 94 msec QT Interval: 356 msec QTC Interval: 440 msec P-R-T [place]: 50 - -14 - 70 degrees Normal sinus rhythm Low voltage QRS Borderline ECG Electronically Signed By: Prosper Dixon [id number]
[2018-10-10] MEDS: CEFAZOLIN 2 GM/50 ML (PMX) 50 ML IVPB SCH ×2 (03:10→10:45)
[2018-10-10] MEDS: SOD CHLORIDE 0.9% 1,000 ML IV SCH ×2 (05:39→09:46)
[2018-10-10] MEDS: PANTOPRAZOLE (EC) 40 MG TAB PO SCH (05:53)
[2018-10-10] MEDS: LEVOTHYROXINE 125 MCG TAB PO SCH (06:51)
[2018-10-10 07:53] VITALS: BP 118/54; PULSE 94; RESP 20
[2018-10-10] MEDS: ENOXAPARIN 40 MG/0.4 ML SYG SC SCH (09:46)
[2018-10-10] MEDS: [UNRECOGNIZED DRUG - OTHER] PO SCH (10:03)
[2018-10-10] MEDS: predniSONE 5 MG TAB PO SCH ×2 (10:03→20:44)
[2018-10-10] MEDS: DOCUSATE SODIUM 100 MG CAP PO SCH ×2 (10:03→20:44)
--- NOTE | 2018-10-10 13:23 | PN ---
Date/Time of Note Date/Time of Note DATE: 10/10/18 TIME: 13:20 Assessment/Plan VTE Prophylaxis Risk score (from Ns)>0 risk: 13 SCD applied (from Ns): Yes Pharmacological prophylaxis: heparin Lines/Catheters IV [facility] (from [facility]): Peripheral IV Urinary Cath still in place: Yes Reason Cath still needed: urinary retention Assessment/Plan Problems: (1) Hip fracture, left Status: Acute Comment: Is now postop. Physical therapy is already starting with him. Given his underlying other medical issues he may be a slow rehab will have to figure out appropriate location for him to go to as I do not think going straight home would be appropriate in his individual circumstances Qualifiers: Encounter type: initial encounter Fracture type: closed Qualified Codes: S72.002A - Fracture of unspecified part of neck of left femur, initial encounter for closed fracture (2) S/P ORIF (open reduction internal fixation) fracture Onset Date: ~ 10/09/2018 Status: Acute Comment: Stable postop (3) Acute hypokalemia Status: Acute Comment: Correct with oral replacement therapy (4) Cirrhosis of liver Status: Chronic Comment: Noted. Careful observation medication adjustments Qualifiers: Hepatic cirrhosis type: unspecified hepatic cirrhosis Ascites presence: without ascites Qualified Codes: K74.60 - Unspecified cirrhosis of liver (5) Thrombocytopenia Status: Chronic Comment: Due to his cirrhosis (6) Prostate cancer Status: Chronic Comment: Noted. 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 Result Diagram: 10/10/18 0521 10/10/18 0521 Results 24hrs Laboratory Tests Test 10/09/18 17:51 10/10/18 05:21 White Blood Count 5.0 5.0 Red Blood Count 3.12 L 2.51 L Hemoglobin 10.3 L 8.2 #L Hematocrit 32.8 L 26.3 L Mean Corpuscular Volume 105.1 H 104.8 H Mean Corpuscular Hemoglobin 33.0 32.7 Mean Corpuscular Hemoglobin Concent 31.4 L 31.2 L Red Cell Distribution Width 19.5 H 19.3 H Platelet Count 49 L 46 L Mean Platelet Volume 9.4 9.8 Immature Granulocytes % 0.200 0.400 Neutrophils % 60.1 48.5 Lymphocytes % 29.5 35.3 Monocytes % 7.0 11.6 H Eosinophils % 2.8 3.4 Basophils % 0.4 0.8 Nucleated Red Blood Cells % 0.0 0.4 H Immature Granulocytes # 0.010 0.020 Neutrophils # 3.0 2.4 Lymphocytes # 1.5 1.8 Monocytes # 0.4 0.6 Eosinophils # 0.1 0.2 Basophils # 0.0 0.0 Nucleated Red Blood Cells # 0.0 0.0 Sodium Level 144 Potassium Level 3.1 L Chloride Level 121 H Carbon Dioxide Level 21 Anion Gap 2 L Blood Urea Nitrogen 29 H Creatinine 0.94 Est Glomerular Filtrat Rate mL/min Glucose Level 83 Calcium Level 9.6 Magnesium Level 2.0 Subjective 24 Hr Interval Summary Free Text/Dictation Patient is asleep in bed but easily aroused. Speaks in Samoan Exam/Review of Systems Vital Signs Vitals Vital Signs Date Temp Pulse Resp B/P (MAP) Pulse Ox O2 O2 Flow FiO2 Time Delivery Rate 10/10/18 98.6 94 20 118/54 95 Nasal 07:53 (75) Cannula 10/09/18 2.0 21:00 Intake and Output 10/09/18 10/09/18 10/10/18 1515:00 23:00 07:00 IntakeIntake Total 1050 ml 930 ml OutputOutput Total 300 ml 1300 ml BalanceBalance 750 ml -370 ml Exam Arousable Neck: supple, non-tender Respiratory: clear to auscultation, normal air movement Cardiovascular: regular rate and rhythm, nl pulses Gastrointestinal: soft, nl liver, spleen, non-tender Medications Medications Current Medications Levothyroxine Sodium (Synthroid) 125 mcg BEFORE BREAKFAST PO Last administered on 10/09/18at 05:33; Admin Dose 125 MCG; Start 10/08/18 at 07:00 Pantoprazole (Protonix Tab) 40 mg DAILY@06 PO Last administered on 10/09/18at 05:34; Admin Dose 40 MG; Start 10/08/18 at 06:00 Ondansetron HCl (Zofran Inj) 4 mg Q6H PRN IV NAUSEA AND/OR VOMITING; Start 10/07/18 at 11:30 Acetaminophen (Tylenol Tab) 650 mg Q6H PRN PO PAIN LEVEL 1-3 OR FEVER; Start 10/07/18 at 11:30 Morphine Sulfate (morphine SULFATE (PF)) 2 mg Q4H PRN IV SEVERE PAIN LEVEL 7-10 Last administered on 10/10/18at 00:47; Admin Dose 2 MG; Start 10/07/18 at 11:30 Docusate Sodium (Colace) 100 mg Q12H PRN PO CONSTIPATION; Start 10/07/18 at 11:30 Patient Own Medication 4 ea DAILY PO Last administered on 10/08/18at 21:04; Admin Dose 4 EA; Start 10/08/18 at 17:00 Ceftriaxone Sodium 50 ml @ 100 mls/hr Q24H IVPB Last administered on 10/08/18at 15:59; Admin Dose 100 MLS/HR; Start 10/08/18 at 15:00 Prednisone (Prednisone) 5 mg BID PO ; Start 10/09/18 at 13:00 Sodium Chloride 1,000 ml @ 80 mls/hr [id number] IV Last administered on 10/10/18at 09:46; Admin Dose 80 MLS/HR; Start 10/09/18 at 17:09 Hydromorphone HCl (Dilaudid) 1 mg Q3H PRN IV BREAKTHROUGH PAIN; Start 10/09/18 at 17:30 Docusate Sodium (Colace) 200 mg BID PO ; Start 10/10/18 at 09:00; Stop 10/12/18 at 21:01 IV Flush (NS 3 ml) 3 ml per protocol IV ; Start 10/09/18 at 17:30 Enoxaparin Sodium (Lovenox) 40 mg DAILY SC Last administered on 10/10/18at 09:46; Admin Dose 40 MG; Start 10/10/18 at 09:00 Acetaminophen/ Hydrocodone Bitart ([place] (5/325)) 1 tab Q3H PRN PO MODERATE PAIN LEVEL 4-6; Start 10/09/18 at 17:30 LUIS REZA MD Oct 10, 2018 13:23
[2018-10-10 14:00] VITALS: BP 143/66; PULSE 99; RESP 20
[2018-10-10] MEDS: POTASSIUM CHLORIDE (SR) 20 MEQ TAB PO SCH ×2 (14:15→20:44)
[2018-10-10] MEDS: CEFTRIAXONE 1 GM/50 ML (PMX) 50 ML IVPB SCH (15:17)
[2018-10-10 20:47] VITALS: BP 120/57; PULSE 100; RESP 17
[2018-10-11] VITALS (7 sets, daily range): BP systolic 108–128; BP diastolic 56–61; PULSE 87–98; RESP 16–20
[2018-10-11] MEDS: LEVOTHYROXINE 125 MCG TAB PO SCH (06:21)
[2018-10-11] MEDS: PANTOPRAZOLE (EC) 40 MG TAB PO SCH (06:21)
[2018-10-11] MEDS: POTASSIUM CHLORIDE (SR) 20 MEQ TAB PO SCH (09:42)
[2018-10-11] MEDS: DOCUSATE SODIUM 100 MG CAP PO SCH (09:43)
[2018-10-11] MEDS: predniSONE 5 MG TAB PO SCH ×2 (09:43→21:58)
[2018-10-11] MEDS: [UNRECOGNIZED DRUG - OTHER] PO SCH (09:46)
[2018-10-11] MEDS: ENOXAPARIN 40 MG/0.4 ML SYG SC SCH (10:16)
[2018-10-11] MEDS ORDERED: SOD CHLORIDE 0.9% 250 ML IV* ONE (12:30)
[2018-10-11] MEDS: SOD CHLORIDE 0.9% 1,000 ML IV SCH (12:30)
--- NOTE | 2018-10-11 12:36 | PN ---
Date/Time of Note Date/Time of Note DATE: 10/11/18 TIME: 12:30 Assessment/Plan VTE [place]axis [place] [facility] [place]: 13 [place] [facility] [place] Yes Pharmacological prophylaxis: heparin Lines/Catheters IV Catheter Type (from [facility]): Peripheral IV Urinary Cath still in place: Yes Reason Cath still needed: urinary retention Assessment/Plan Problems: (1) S/P ORIF (open reduction internal fixation) fracture Onset Date: ~ 10/09/2018 Status: Acute Comment: Recuperating nicely and actually appears better today. Continue with treatment and consideration for acute rehab evaluation (2) Postoperative anemia due to acute blood loss Status: Acute Comment: Transfuse 1 unit packed red blood cells and follow CBC (3) Cirrhosis of liver Status: Chronic Comment: Noted. Fortunately has not decompensated Qualifiers: Hepatic cirrhosis type: unspecified hepatic cirrhosis Ascites presence: without ascites Qualified Codes: K74.60 - Unspecified cirrhosis of liver (4) S/P TIPS (transjugular intrahepatic portosystemic shunt) Status: Chronic Comment: Noted. (5) Debility Status: Chronic Comment: Consideration for Acute Rehab Result Diagram: 10/11/18 0431 10/11/18 0431 Results 24hrs Laboratory Tests Test 10/11/18 04:31 10/11/18 06:29 White Blood Count 3.1 #L Red Blood Count 2.20 L Hemoglobin 7.2 L Hematocrit 23.1 L Mean Corpuscular Volume 105.0 H Mean Corpuscular Hemoglobin 32.7 Mean Corpuscular Hemoglobin Concent 31.2 L Red Cell Distribution Width 19.3 H Platelet Count 49 L Mean Platelet Volume 9.3 Immature Granulocytes % 0.300 Neutrophils % 58.1 Lymphocytes % 31.1 Monocytes % 8.2 Eosinophils % 2.0 Basophils % 0.3 Nucleated Red Blood Cells % 0.0 Immature Granulocytes # 0.010 Neutrophils # 1.8 Lymphocytes # 1.0 Monocytes # 0.3 Eosinophils # 0.1 Basophils # 0.0 Nucleated Red Blood Cells # 0.0 Sodium Level 147 H Potassium Level 4.5 Chloride Level 124 H Carbon Dioxide Level 20 L Anion Gap 3 L Blood Urea Nitrogen 28 H Creatinine 0.89 Est Glomerular Filtrat Rate mL/min Glucose Level 86 Calcium Level 9.6 Magnesium Level 2.1 Lab Scanned Report BLOOD TRANSFUSION Subjective 24 Hr Interval Summary Free Text/Dictation Patient in friendlier spirits today Constitutional: no complaints Respiratory: no complaints Cardiovascular: no complaints Exam/Review of Systems Vital Signs Vitals Vital Signs Date Temp Pulse Resp B/P (MAP) Pulse Ox O2 O2 Flow FiO2 Time Delivery Rate 10/11/18 98.6 89 18 126/58 97 Room Air 07:25 (80) 10/09/18 2.0 21:00 Intake and Output 10/10/18 10/10/18 10/11/18 1414:59 22:59 06:59 IntakeIntake Total 790 ml 310 ml 800 ml OutputOutput Total 250 ml 350 ml BalanceBalance 790 ml 60 ml 450 ml Exam Constitutional: alert, oriented Neck: supple, non-tender Respiratory: clear to auscultation, normal air movement Medications Medications Current Medications Levothyroxine Sodium (Synthroid) 125 mcg BEFORE BREAKFAST PO Last administered on 10/11/18 06:21; Admin Dose 125 MCG; Start 10/08/18 at 07:00 Pantoprazole (Protonix Tab) 40 mg DAILY@06 PO Last administered on 10/11/18at 06:21; Admin Dose 40 MG; Start 10/08/18 at 06:00 Ondansetron HCl (Zofran Inj) 4 mg Q6H PRN IV NAUSEA AND/OR VOMITING; Start 10/07/18 at 11:30 Acetaminophen (Tylenol Tab) 650 mg Q6H PRN PO PAIN LEVEL 1-3 OR FEVER; Start 10/07/18 at 11:30 Morphine Sulfate (morphine SULFATE (PF)) 2 mg Q4H PRN IV SEVERE PAIN LEVEL 7-10 Last administered on 10/10/18at 00:47; Admin Dose 2 MG; Start 10/07/18 at 11:30 Docusate Sodium (Colace) 100 mg Q12H PRN PO CONSTIPATION; Start 10/07/18 at 11:30 Patient Own Medication 4 ea DAILY PO Last administered on 10/11/18 09:46; Admin Dose 4 EA; Start 10/08/18 at 17:00 Ceftriaxone Sodium 50 ml @ 100 mls/hr Q24H IVPB Last administered on 10/10/18at 15:17; Admin Dose 100 MLS/HR; Start 10/08/18 at 15:00 Prednisone (Prednisone) 5 mg BID PO Last administered on 10/11/18 09:43; Admin Dose 5 MG; Start 10/09/18 at 13:00 Sodium Chloride 1,000 ml @ 40 mls/hr Q24H IV Last administered on 10/10/18 09:46; Admin Dose 80 MLS/HR; Start 10/09/18 at 17:09 Hydromorphone HCl (Dilaudid) 1 mg Q3H PRN IV BREAKTHROUGH PAIN; Start 10/09/18 at 17:30 Docusate Sodium (Colace) 200 mg BID PO Last administered on 10/11/18 09:43; Admin Dose 200 MG; Start 10/10/18 at 09:00; Stop 10/12/18 at 21:01 IV Flush (NS 3 ml) 3 ml per protocol IV ; Start 10/09/18 at 17:30 Enoxaparin Sodium (Lovenox) 40 mg DAILY SC Last administered on 10/11/18at 10:16; Admin Dose 40 MG; Start 10/10/18 at 09:00 Acetaminophen/ Hydrocodone Bitart ([place] (5/325)) 1 tab Q3H PRN PO MODERATE PAIN LEVEL 4-6; Start 10/09/18 at 17:30 Potassium Chloride (Klor-Con 20) 40 meq BID PO Last administered on 10/11/18 09:42; Admin Dose 40 MEQ; Start 10/10/18 at 13:30; Stop 10/11/18 at 13:29 LUIS REZA MD Oct 11, 2018 12:36
[2018-10-11] MEDS: CEFTRIAXONE 1 GM/50 ML (PMX) 50 ML IVPB SCH (15:35)
[2018-10-11] MEDS ORDERED: DOCUSATE SODIUM 10 MG/ML (10ML CUP) PO PRN (16:00)
[2018-10-11] MEDS: DOCUSATE SODIUM 10 MG/ML (10ML CUP) PO SCH (21:59)
[2018-10-12 01:18] VITALS: BP 113/55; PULSE 88; RESP 16
[2018-10-12] MEDS: PANTOPRAZOLE (EC) 40 MG TAB PO SCH (06:29)
[2018-10-12] MEDS: LEVOTHYROXINE 125 MCG TAB PO SCH ×2 (06:29→08:55)
[2018-10-12 07:38] VITALS: BP 109/57; PULSE 95; RESP 16
[2018-10-12] MEDS: predniSONE 5 MG TAB PO SCH (08:55)
[2018-10-12] MEDS: DOCUSATE SODIUM 10 MG/ML (10ML CUP) PO SCH (08:55)
[2018-10-12] MEDS: [UNRECOGNIZED DRUG - OTHER] PO SCH (08:56)
[2018-10-12] MEDS: ENOXAPARIN 40 MG/0.4 ML SYG SC SCH (09:00)
--- NOTE | 2018-10-12 14:37 | PN ---
Date/Time of Note Date/Time of Note DATE: 10/12/18 TIME: 14:04 Assessment/Plan VTE Prophylaxis Risk score (from Ns)>0 risk: 6 SCD applied (from [facility] [place] Yes Pharmacological prophylaxis: NA/contraindicated Pharm contraindication: thrombocytopenia Lines/Catheters [facility] (from [facility] Peripheral IV Urinary Cath still in place: Yes Reason Cath still needed: other (indicate) Assessment/Plan Result Diagram: 10/12/18 0535 10/11/18 0431 Results 24hrs Laboratory Tests Test 10/12/18 05:35 White Blood Count 4.2 #L Red Blood Count 2.63 L Hemoglobin 8.6 L Hematocrit 27.2 L Mean Corpuscular Volume 103.4 H Mean Corpuscular Hemoglobin 32.7 Mean Corpuscular Hemoglobin Concent 31.6 L Red Cell Distribution Width 19.3 H Platelet Count 56 L Mean Platelet Volume 9.8 Immature Granulocytes % 0.500 H Neutrophils % 59.5 Lymphocytes % 28.6 Monocytes % 8.6 Eosinophils % 2.6 Basophils % 0.2 Nucleated Red Blood Cells % 0.5 H Immature Granulocytes # 0.020 Neutrophils # 2.5 Lymphocytes # 1.2 Monocytes # 0.4 Eosinophils # 0.1 Basophils # 0.0 Nucleated Red Blood Cells # 0.0 Subjective 24 Hr Interval Summary Free Text/Dictation SUBJECTIVE: ?confused OBJECTIVE: Vital signs-see below PHYSICAL EXAM: Constitutional: Elderly, pale looking Niuean male, not in acute distress. unclear speech, speaks only grenadian Psych: nl mood/affect, no complaints Head: atraumatic, normocephalic Eyes: nl conjunctiva, nl sclera ENMT: mucosa pink and moist, nl external ears & nose Neck: non-tender, supple Respiratory: Diminished bibasilar. Clear to auscultation, normal air movement Cardiovascular: nl pulses, regular rate and rhythm Gastrointestinal: non-tender, soft, bowel sounds active in all 4 quadrants. Musculoskeletal/extremities: Pain with left leg movement. Otherwise nl extremities to inspection, motor strength equal bilaterally, no focal deficit. Normal pulses,no cyanosis, no edema. Neurological: Alert oriented x2. Disoriented to time and situation. Niuean- speaking. Noncoherent speech. Skin: Jaundiced/pale. Nl turgor ASSESSMENT/PLAN: 78-year old male with liver cirrhosis, status post TIPS, pancytopenia, prostate cancer, status post resection of bladder and prostate in December 2017, here with mechanical fall/left hip fracture 1. Mechanical fall with left femur fracture. -s/p ORIF 2. Recurrent UTI with chronic indwelling catheter -needs repeat UA post abx for test of cure 3. Thrombocytopenia of liver disease -Stable -Avoid antiplatelet/anticoagulation. -Monitor CBC 4.Alcoholic liver cirrhosis, status post TIPS -Monitor LFTs 5.Prostate cancer with bladder invasion, status post resection of bladder and prostate in December 2017 -Patient has outpatient follow-up with his urologist Dr Arzate -Continue home Zytiga along with prednisone. -cont.chavez -retrieve records 6. Anemia of liver disease -Stable H&H. 7. Debility -ARU eval pending DVT prophylaxis: SCDs PUD prophylaxis: Protonix CODE STATUS: Full code Exam/Review of Systems Vital Signs Vitals Vital Signs Date Temp Pulse Resp B/P (MAP) Pulse Ox O2 O2 Flow FiO2 Time Delivery Rate 10/12/18 98.4 95 16 109/57 96 07:38 (74) 10/11/18 Nasal 14:47 Cannula 10/09/18 2.0 21:00 Intake and Output 10/11/18 10/11/18 10/12/18 1515:00 23:00 07:00 IntakeIntake Total 1560 ml 1010 ml 320 ml OutputOutput Total 350 ml 300 ml BalanceBalance 1560 ml 660 ml 20 ml Medications Medications Current Medications Levothyroxine Sodium (Synthroid) 125 mcg BEFORE BREAKFAST PO Last administered on 10/12/18at 08:55; Admin Dose 125 MCG; Start 10/08/18 at 07:00 Pantoprazole (Protonix Tab) 40 mg DAILY@06 PO Last administered on 10/12/18at 06:29; Admin Dose 40 MG; Start 10/08/18 at 06:00 Ondansetron HCl (Zofran Inj) 4 mg Q6H PRN IV NAUSEA AND/OR VOMITING; Start 10/07/18 at 11:30 Acetaminophen (Tylenol Tab) 650 mg Q6H PRN PO PAIN LEVEL 1-3 OR FEVER; Start 10/07/18 at 11:30 Morphine Sulfate (morphine SULFATE (PF)) 2 mg Q4H PRN IV SEVERE PAIN LEVEL 7-10 Last administered on 10/10/18at 00:47; Admin Dose 2 MG; Start 10/07/18 at 11:30 Patient Own Medication 4 ea DAILY PO Last administered on 10/12/18at 08:56; Admin Dose 4 EA; Start 10/08/18 at 17:00 Ceftriaxone Sodium 50 ml @ 100 mls/hr Q24H IVPB Last administered on 10/11/18at 15:35; Admin Dose 100 MLS/HR; Start 10/08/18 at 15:00 Prednisone (Prednisone) 5 mg BID PO Last administered on 10/12/18at 08:55; Admin Dose 5 MG; Start 10/09/18 at 13:00 Hydromorphone HCl (Dilaudid) 1 mg Q3H PRN IV BREAKTHROUGH PAIN; Start 10/09/18 at 17:30 IV Flush (NS 3 ml) 3 ml per protocol IV ; Start 10/09/18 at 17:30 Enoxaparin Sodium (Lovenox) 40 mg DAILY SC Last administered on 10/12/18at 09:00; Admin Dose 40 MG; Start 10/10/18 at 09:00 Acetaminophen/ Hydrocodone Bitart ([place] (5/325)) 1 tab Q3H PRN PO MODERATE PAIN LEVEL 4-6; Start 10/09/18 at 17:30 Docusate Sodium (Colace Liquid Cup) 100 mg Q12H PRN PO CONSTIPATION; Start 10/11/18 at 16:00 Docusate Sodium (Colace Liquid Cup) 200 mg BID PO Last administered on 10/12/18at 08:55; Admin Dose 200 MG; Start 10/11/18 at 21:00; Stop 10/13/18 at 09:01 NAHID LAZO Oct 12, 2018 14:14
[2018-10-12 14:52] VITALS: BP 118/58; PULSE 90; RESP 16
[2018-10-12] MEDS: CEFTRIAXONE 1 GM/50 ML (PMX) 50 ML IVPB SCH (15:00)
[2018-10-12] MEDS ORDERED: DOCU50LI11 PO (16:01)
[2018-10-12] MEDS ORDERED: ENOX40DI12 SC (16:01)
[2018-10-12] MEDS ORDERED: Patient Own Medication PO (16:01)
[2018-10-12] MEDS ORDERED: LEVO500T10 PO (16:02)
[2018-10-12] MEDS ORDERED: POTA20TA96 PO (16:10)
[2018-10-12] MEDS ORDERED: FURO20TA3 PO (16:10)
[2018-10-12] MEDS ORDERED: SOD FERRIC GLUC COMPLX 125 MG in SOD CHLORIDE 0.9% 100 ML IVPB ONE (16:30)
--- NOTE | 2018-10-12 18:41 | DS ---
DATE OF ADMISSION: 10/07/2018 DATE OF DISCHARGE: 10/12/2018 PRESENTING COMPLAINT: Left leg pain secondary to fall. FINAL DIAGNOSES: A 78-year-old male with a past medical history of liver cirrhosis, status post TIPS , pancytopenia, prostate cancer status post resection of the bladder and prostate in 12/2017. Per re port however, the CT scan in 06/2018 still shows left bladder wall mass, who presented with status po st mechanical fall and was found to have a left hip fracture. 1. Status post mechanical fall with left hip fracture, status post open reduction and internal fixat ion in 10/09/2018. 2. Recurrent urinary tract infection with chronic indwelling catheter, on antibiotic therapy. 3. Chronic pancytopenia likely associated with liver disease and highly probable iron deficiency. T he patient is to be begun on supplements. 4. Chronic alcoholic liver cirrhosis, status post TIPS. 5. History of prostate cancer with bladder invasion with reported history of bladder resection and l ast CT in 06/2018 showing left bladder wall mass with possible involvement of the left UVJ and eviden ce of irregular borders of the prostate gland. 6. Chronic debility. 7. Hypophosphatemia, status post replenishment. 8. Hyperbilirubinemia likely secondary to chronic alcoholic cirrhosis. 9. Chronic encephalopathy. CONSULTS ON THE CASE: Dr. Nate Gill for open reduction and internal fixation. DISPOSITION: The patient is being transferred to the acute rehabilitation unit for continued therapy . HOSPITAL COURSE: Full details are available in the chart for review. This is a 78-year-old male wit h a history of prostate cancer, for which he has had surgery in the past, who came in after a fall an d was found to have a left hip fracture which was surgically repaired. The patient has had no signif icant postoperative complications and is being transferred to the acute rehabilitation unit for silke nued care. He does have a chronic Vaughn catheter that was changed a week prior to presentation, but he did have evidence of urinary tract infection on the urinalysis even though culture grew out no org anisms. He has been maintained on antibiotics. I will attempt to change the Vaughn again and repeat urinalysis for test of cure. At this time, he is stable for transfer to the acute rehabilitation uni t. DIET: Recommended diet is low cholesterol, low fat. ACTIVITY: Per physical therapy. DISCHARGE CONDITION: Stable. DISCHARGE MEDICATIONS: For complete list of discharge medications, please review the patient's medic ation list. Time spent on discharge has been greater than 30 minutes. Dictated By: NAHID LAZO MD BA/NTS Conf#: [id number] DID#: [id number] CC: NATE GILL MD; NORBERTO REDDY MD;*EndCC*
[2018-10-12 19:40] VITALS: BP 112/58; PULSE 94; RESP 18
--- NOTE | 2018-10-12 19:43 | CONS ---
DATE OF ADMISSION: 10/07/2018 DATE OF CONSULTATION: 10/07/2018 HISTORY OF PRESENT ILLNESS: The patient is a 78-year-old male who was admitted on 10/07/2018 when he was brought in to the emergency room because of the painful limit of motion involving left hip. Acc ording to available information, he sustained a ground-level fall at home the night before his admiss ion. Following the fall, he was not able to stand up or walk because of the pain involving his left hip. He has multiple medical problems including liver cirrhosis from alcoholism, thrombocytopenia from una er disease, prostate cancer status post resection of the bladder and prostate, anemia of liver diseas e. PHYSICAL EXAMINATION: GENERAL: My examination revealed a 78-year-old male who seems to be somewhat confused. EXTREMITIES: There was tenderness and swelling around the left hip. There was an obvious shortening in external rotation of the left lower extremity. Range of motion of the left hip was not tested be cause of the obvious pain. There were no signs of neurovascular compromise involving the left lower extremity. DIAGNOSTIC STUDIES: X-rays of the left hip revealed an obvious intertrochanteric fracture of the lef t hip which is displaced and angulated. DIAGNOSTIC IMPRESSION: Intertrochanteric fracture of the left hip, displaced. TREATMENT PLAN: To surgery for open reduction and internal fixation of the left hip fracture as soon as possible. Dictated By: NATE WHITE/NTS Conf#: [id number] DID#: [id number] CC: NORBERTO REDDY MD;*EndCC*
== END 2018-10-12 19:55 | DRG 481 ==
LOC: E/R 07:37 → 2NE 08:36
PROVIDERS: ADMIT Internal Medicine; ATTEND Family Medicine
PROC: 30233N1 Transfusion of Nonautologous Red Blood Cells into Peripheral Vein, Percutaneous Approach (ICD-10-PCS; 2018-10-08)
PROC: 30233R1 Transfusion of Nonautologous Platelets into Peripheral Vein, Percutaneous Approach (ICD-10-PCS; 2018-10-09)
PROC: 0QS706Z Reposition Left Upper Femur with Intramedullary Internal Fixation Device, Open Approach (ICD-10-PCS; principal; 2018-10-09 15:00)
DX: S72.142A Displaced intertrochanteric fracture of left femur, initial encounter for closed fracture (principal); N39.0 Urinary tract infection, site not specified; D62 Acute posthemorrhagic anemia; D61.818 Other pancytopenia; G93.49 Other encephalopathy; D69.59 Other secondary thrombocytopenia; E87.6 Hypokalemia; R53.81 Other malaise; E03.9 Hypothyroidism, unspecified; F10.10 Alcohol abuse, uncomplicated; E83.39 Other disorders of phosphorus metabolism; D63.8 Anemia in other chronic diseases classified elsewhere; K70.30 Alcoholic cirrhosis of liver without ascites; Z85.46 Personal history of malignant neoplasm of prostate; Z85.51 Personal history of malignant neoplasm of bladder; W18.30XA Fall on same level, unspecified, initial encounter; Y92.009 Unspecified place in unspecified non-institutional (private) residence as the place of occurrence of the external cause
CPT/HCPCS: 36415; 36430; 70450; 71045; 73500; 73510; 73530; 80048; 80053; 81001; 82140; 82607; 82746; 83735; 84100; 84484; 85025; 85610; 85730; 86644; 86850; 86900; 86901; 86920; 86945; 87086; 93005; 93306; 97110; 97162; 97530; J0690; J0696; J1170; J1650; J1940; J2250; J2274; J2405; J2916; J3010; J7030; J7040; J7512; P9016; P9035; P9059

== ENCOUNTER 2018-10-12 20:00 | Inpatient (IN) | payer MEDICARE, OTHER ==
[~2018-10-12] VITALS: Ht 172.7 cm; Wt 75.0 kg
[2018-10-12 20:00] VITALS: BP 118/57; PULSE 90; RESP 18
[~2018-10-12 20:00] MED LIST changes: +DOCU50LI11 PO; +ENOX40DI12 SC; +FURO20TA3 PO; +LEVO500T10 PO; +POTA20TA96 PO; +Patient Own Medication PO
[2018-10-12] MEDS ORDERED: CEFTRIAXONE 1 GM/50 ML (PMX) 50 ML IVPB SCH (22:01)
[2018-10-12] MEDS ORDERED: ONDANSETRON 4 MG INJ IV PRN (22:01)
[2018-10-12] MEDS ORDERED: NACL 0.9% 3 ML SYG IV SCH (22:01)
[2018-10-12] MEDS ORDERED: DOCUSATE SODIUM 100 MG CAP PO SCH (22:01)
[2018-10-12] MEDS ORDERED: DOCUSATE SODIUM 10 MG/ML (10ML CUP) PO SCH (22:01)
[2018-10-12] MEDS ORDERED: morphine SULFATE/PF (2 MG/2 ML) SYG IV PRN (22:01)
[2018-10-13] MEDS ORDERED: BISACODYL 10 MG SUPP PR PRN
[2018-10-13] MEDS ORDERED: LACTULOSE 30ML CUP PO PRN
[2018-10-13 02:00] VITALS: BP 124/60; PULSE 93; RESP 18
[2018-10-13] MEDS: LEVOTHYROXINE 125 MCG TAB PO SCH (06:15)
[2018-10-13] MEDS: PANTOPRAZOLE (EC) 40 MG TAB PO SCH (06:15)
--- NOTE | 2018-10-13 06:43 | NUR ---
PATIENT ADMITTED FROM [facility] VIA BED. PATIENT IS AWAKE AND ALERT. NO C/O PAIN OR DISCOMFORT. INDONESIAN SPEAKING. RECREATIONAL ACTIVITIES PROVIDED TO PATIENT; TV. CALL LIGHT WITHIN REACH.
[2018-10-13 07:00] VITALS: BP 115/57; PULSE 86; RESP 18
--- NOTE | 2018-10-13 07:00 | NUR ---
ON ADMISSION MEDICATIONS REVIEWED AND VERIFIED WITH
[2018-10-13] MEDS ORDERED: DOCUSATE SODIUM 100 MG CAP PO SCH (09:00)
[2018-10-13] MEDS: [UNRECOGNIZED DRUG - OTHER] PO SCH (09:00)
--- NOTE | 2018-10-13 09:25 | NUR ---
RE: Left Hip dressing soiled RN called In Dilia Gill. Left message to office regarding dressing soiled and need order for dressing change. Addendum: 10/13/18 at 1056 by RAAD HULL RN At 10:50 Dr. Gill gave order to change dressing now with Mepilex Edai Ag but do not change everyday. Call and refer accordingly.
[2018-10-13] MEDS ORDERED: SOD CHLORIDE 0.9% 1,000 ML IV SCH (10:30)
--- NOTE | 2018-10-13 10:36 | CONS ---
Date/Time of Note Date/Time of Note DATE: 10/13/18 TIME: 10:21 Assessment/Plan Assessment/Plan Assessment/Plan 78 yo M s/p mechanical fall and hip fracture s/p ORIF admitted to ARU for rehab. Med conditions are as follows: 1. Chronic indwelling Chavez catheter secondary to #6 -If urinalysis continues to show evidence of infection, we may need to have urology change the Chavez 2. Urinary tract infection on treatment -The patient has some mild hypotension when he was out of bed 3. Pancytopenia / #4? r/o iron deficiency -No indication for transfusion at this time 4. Chronic liver cirrhosis status post TIPS 5. Coagulopathy and hypoalbuminemia likely secondary to #4 6. History of prostate cancer with bladder invasion and history of bladder resection and CT evidence of left bladder wall mass with involvement of left UVJ and irregular borders on prostate glands 7. 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 Recent hip fracture status post mechanical fall status post ORIF 10/09/18 9. Evidence of right hepatic surgery (TIPS?) on CT Plan: We will repeat cultures and continue antibiotics at this time for his urinary tract infection. I will also give some albumin to help with his blood pressure. I have called his outpatient urologist Dr. Arzate and will be faxing of his records so we can get a good idea of what is going on with his prostate cancer. In the interim continue current supportive care. Thanks for the Consult. We will follow with you. Result Diagram: 10/13/18 0604 10/13/18 0603 Results 24hrs Laboratory Tests Test 10/12/18 22:30 10/13/18 06:03 10/13/18 06:04 Urine Color AYE Urine Clarity CLOUDY A Urine pH 5.0 Urine Specific [place] 1.023 Urine Ketones NEGATIVE Urine Nitrite NEGATIVE Urine Bilirubin NEGATIVE Urine Urobilinogen 2+ H Urine Leukocyte Esterase 2+ H Urine Microscopic RBC > 182 H Urine Microscopic WBC > 182 H Urine Bacteria FEW A Urine Mucus FEW A Urine Yeast (Budding) MANY A Urine Hemoglobin 3+ H Urine Glucose NEGATIVE Urine Total Protein 1+ H Sodium Level 144 Potassium Level 4.2 Chloride Level 122 H Carbon Dioxide Level 21 Anion Gap 1 L Blood Urea Nitrogen 28 H Creatinine 0.80 Est Glomerular Filtrat Rate mL/min Glucose Level 91 Calcium Level 9.9 Total Bilirubin 1.8 H Direct Bilirubin 0.00 Indirect Bilirubin 1.8 H Aspartate Amino Transf (AST/SGOT) 45 Alanine Aminotransferase (ALT/SGPT) 23 Alkaline Phosphatase 63 Total Protein 4.8 L Albumin 1.9 L Globulin 2.90 Albumin/Globulin Ratio 0.65 White Blood Count 4.0 L Red Blood Count 2.53 L Hemoglobin 8.3 L Hematocrit 26.5 L Mean Corpuscular Volume 104.7 H Mean Corpuscular Hemoglobin 32.8 Mean Corpuscular Hemoglobin Concent 31.3 L Red Cell Distribution Width 19.8 H Platelet Count 59 L Mean Platelet Volume 10.0 Immature Granulocytes % 0.800 H Neutrophils % 53.5 Lymphocytes % 30.8 Monocytes % 11.3 H Eosinophils % 3.3 Basophils % 0.3 Nucleated Red Blood Cells % 1.0 H Immature Granulocytes # 0.030 Neutrophils # 2.2 Lymphocytes # 1.2 Monocytes # 0.5 Eosinophils # 0.1 Basophils # 0.0 Nucleated Red Blood Cells # 0.0 Consultation Date/Type/Reason Admit Date/Time Oct 12, 2018 at 20:00 Hx of Present Illness Pleasant 78-year-old male with a long medical history that includes liver cirrhosis status post TIPS, prostatic cancer status post resection, chronic indwelling catheter, history of right hepatic surgery, also history of surgery to right prostate, evidence of bladder invasion from prostatic cancer, and now recent hip fracture status post open reduction and internal fixation. He is admitted now to the rehabilitation unit for rehabilitation postoperatively. We are consulted for management of his medical conditions. The patient did have a urinary tract infection that was treated with IV antibiotics during his inpatient hospitalization. At this time he reports that he is doing so-so, is excited to start therapy, he denies fever, he did note that he does have chills sometimes. He denies abdominal pain, denies chest pain, he does complain of some mild lower back pain which could be related to his surgery. Nurses did note a mildly low blood pressure when he was out of bed however. 12 point review if systems was done and pertinent findings are as noted. Past Medical History 1. Status post mechanical fall with left hip fracture, status post open reduction and internal fixation in 10/09/2018. 2. Recurrent urinary tract infection with chronic indwelling catheter, on antibiotic therapy. 3. Chronic pancytopenia likely associated with liver disease and highly probable iron deficiency. 4. Chronic alcoholic liver cirrhosis, status post TIPS. 5. History of prostate cancer with bladder invasion with reported history of bladder resection and last CT in 06/2018 showing left bladder wall mass with possible involvement of the left UVJ and evidence of irregular borders of the prostate gland. 6. Chronic debility. 7. Hypophosphatemia, status post replenishment. 8. Hyperbilirubinemia likely secondary to chronic alcoholic cirrhosis. 9. Chronic encephalopathy. . Medications Current Medications Levothyroxine Sodium (Synthroid) 125 mcg BEFORE BREAKFAST PO Last administered on 10/13/18at 06:15; Admin Dose 125 MCG; Start 10/12/18 at 22:01 Pantoprazole (Protonix Tab) 40 mg DAILY@06 PO Last administered on 10/13/18at 06:15; Admin Dose 40 MG; Start 10/12/18 at 22:01 Ondansetron HCl (Zofran Inj) 4 mg Q6H PRN IV NAUSEA AND/OR VOMITING; Start 10/12/18 at 22:01 Acetaminophen (Tylenol Tab) 650 mg Q6H PRN PO PAIN LEVEL 1-3 OR FEVER; Start 10/12/18 at 22:01 Morphine Sulfate (morphine SULFATE (PF)) 2 mg Q4H PRN IV SEVERE PAIN LEVEL 7- 10; Start 10/12/18 at 22:01 Patient Own Medication 4 ea DAILY PO ; Start 10/12/18 at 22:01 Prednisone (Prednisone) 5 mg BID PO ; Start 10/12/18 at 22:01 Hydromorphone HCl (Dilaudid) 1 mg Q3H PRN IV BREAKTHROUGH PAIN; Start 10/12/18 at 22:01 IV Flush (NS 3 ml) 3 ml per protocol IV ; Start 10/12/18 at 22:01 Enoxaparin Sodium (Lovenox) 40 mg DAILY SC ; Start 10/12/18 at 22:01 Acetaminophen/ Hydrocodone Bitart ([place] (5/325)) 1 tab Q3H PRN PO MODERATE PAIN LEVEL 4-6; Start 10/12/18 at 22:01 Senna (Senokot) 1 tab HS PO ; Start 10/13/18 at 21:00 Lactulose (Enulose) 20 gm DAILY PRN PO CONSTIPATION; Start 10/13/18 at 00:00 Bisacodyl (Dulcolax Supp) 10 mg DAILY PRN [place] CONSTIPATION; Start 10/13/18 at 00:00 Piperacillin Sod/ Tazobactam Sod 100 ml @ 200 mls/hr Q8 IVPB ; Start 10/13/18 at 14:00 Albumin Human 100 ml @ 100 mls/hr ONCE ONCE IV ; Start 10/13/18 at 12:00; Stop 10/13/18 at 12:59 Allergies: Coded Allergies: No Known Drug Allergies (Verified Allergy, Unknown, 10/07/18) Past Surgical History Past Surgical Hx: other (see above) Family History Significant Family History: no pertinent family hx Social History Alcohol Use: sober Smoking Status: Never smoker Exam/Review of Systems Vital Signs Vitals Vital Signs Date Temp Pulse Resp B/P (MAP) Pulse Ox O2 O2 Flow FiO2 Time Delivery Rate 10/13/18 97.4 86 18 115/57 91 Room Air 07:00 (76) Intake and Output 10/12/18 10/12/18 10/13/18 1515:00 23:00 07:00 IntakeIntake Total 200 ml OutputOutput Total 350 ml BalanceBalance -150 ml Exam Constitutional: alert, oriented, frail; No distress Psych: nl mood/affect Head: normocephalic Eyes: PERRL; No icteric ENMT: mucosa pink and moist, other (dentures) Neck: supple Respiratory: clear to auscultation Cardiovascular: regular rate and rhythm; No murmurs/extra sounds Gastrointestinal: soft, non-tender Genitourinary - Male: nl penis, other Extremities: No edema (chavez) Neurological: No focal weakness Medications Medications Current Medications Levothyroxine Sodium (Synthroid) 125 mcg BEFORE BREAKFAST PO Last administered on 10/13/18at 06:15; Admin Dose 125 MCG; Start 10/12/18 at 22:01 Pantoprazole (Protonix Tab) 40 mg DAILY@06 PO Last administered on 10/13/18at 06:15; Admin Dose 40 MG; Start 10/12/18 at 22:01 Ondansetron HCl (Zofran Inj) 4 mg Q6H PRN IV NAUSEA AND/OR VOMITING; Start 10/12/18 at 22:01 Acetaminophen (Tylenol Tab) 650 mg Q6H PRN PO PAIN LEVEL 1-3 OR FEVER; Start 10/12/18 at 22:01 Morphine Sulfate (morphine SULFATE (PF)) 2 mg Q4H PRN IV SEVERE PAIN LEVEL 7- 10; Start 10/12/18 at 22:01 Patient Own Medication 4 ea DAILY PO ; Start 10/12/18 at 22:01 Prednisone (Prednisone) 5 mg BID PO ; Start 10/12/18 at 22:01 Hydromorphone HCl (Dilaudid) 1 mg Q3H PRN IV BREAKTHROUGH PAIN; Start 10/12/18 at 22:01 IV Flush (NS 3 ml) 3 ml per protocol IV ; Start 10/12/18 at 22:01 Enoxaparin Sodium (Lovenox) 40 mg DAILY SC ; Start 10/12/18 at 22:01 Acetaminophen/ Hydrocodone Bitart ([place] (5/325)) 1 tab Q3H PRN PO MODERATE PAIN LEVEL 4-6; Start 10/12/18 at 22:01 Senna (Senokot) 1 tab HS PO ; Start 10/13/18 at 21:00 Lactulose (Enulose) 20 gm DAILY PRN PO CONSTIPATION; Start 10/13/18 at 00:00 Bisacodyl (Dulcolax Supp) 10 mg DAILY PRN [place] CONSTIPATION; Start 10/13/18 at 00:00 Piperacillin Sod/ Tazobactam Sod 100 ml @ 200 mls/hr Q8 IVPB ; Start 10/13/18 at 14:00 Albumin Human 100 ml @ 100 mls/hr ONCE ONCE IV ; Start 10/13/18 at 12:00; Stop 10/13/18 at 12:59 NAHID LAZO Oct 13, 2018 10:32
--- NOTE | 2018-10-13 11:30 | NUR ---
PT EVAL Pt is a 78 y/o, Indian-speaking gentleman, admitted from home s/p fall sustaining L hip intertrochanteric fx. Underwent ORIF by Dr. Gill 10/09/18. Pt agreeable to PT eval/ Utilized video maintenance pipefitter (Bob). Pt reports pain in LLE but unable to quantify and refused offer to have pain med 3x. RN and MD notified. Pt educated on role of PT, POC, goals, and safety including use of call light. Will benefit from further reinforcement. PLOF: Lives in a 1-story house with daughter and her family. Pt was indep. with self-care and limited household amb. using FWW. owns a manual w/c. Precautions: Indian-speaking, dec hearing, confused, WBAT LLE, abd binder/CATIA hose stockings when OOB, check VS, fall risk, 2pA CLOF: See PT technical record Short-term Goals: Mod A bed mobility Max A with transfers with FWW Max A with gait with FWW x 10 ft Min/mod A w/c mobility x 25 ft Long-term Goals: Min A bed mobility Mod A with transfers with FWW Mod A with gait with FWW x 25 ft SBA w/c mobility x 50 ft Recommendations: HHPT, 24-hr care at home, commode Progress toward goals with POC.
[2018-10-13] MEDS: predniSONE 5 MG TAB PO SCH ×2 (11:40→20:28)
[2018-10-13] MEDS: ENOXAPARIN 40 MG/0.4 ML SYG SC SCH (11:45)
[2018-10-13] MEDS ORDERED: ALBUMIN HUMAN 25% 100 ML IV ONE (12:00)
--- NOTE | 2018-10-13 13:07 | CONS ---
DATE OF ADMISSION: 10/12/2018 DATE OF CONSULTATION: 10/13/2018 REHABILITATION POST-ADMISSION PHYSICIAN EVALUATION REHABILITATION IMPAIRMENT CATEGORY: Left intertrochanteric hip fracture status post ORIF. ACTIVE COMORBIDITIES: 1. Toxic metabolic encephalopathy. 2. Dysphagia on pureed diet. 3. Urinary tract infection. 4. Cirrhosis. 5. Hypokalemia. 6. Pancytopenia. 7. History of prostate carcinoma. 8. Impairments in self-care, mobility and cognition. HISTORY OF PRESENT ILLNESS: The patient is a 78-year-old gentleman with a history of multiple medica l comorbidities including liver cirrhosis, pancytopenia, prostate CA and a history of bladder and pro state surgery, who was admitted after a mechanical fall with resultant left lower extremity pain and workup revealing left intertrochanteric hip fracture. The patient underwent left hip ORIF on . The patient's hospital course has been notable for significant pain, confusion, and impairments in self-care and mobility as compared to baseline. The patient has been cleared to transfer to the rehabilitation unit for comprehensive interdisciplinary rehab care. FUNCTIONAL HISTORY: Prior to recent events, the patient was independent in self-care tasks and mobil ity. Currently, patient requires maximal assist for self-care and mobility tasks. I have reviewed the preadmission screen and patient's current functional status is consistent with th e preadmission screen. FAMILY AND SOCIAL HISTORY: The patient reportedly has supportive family and is hoping to return home with family. PAST MEDICAL HISTORY: 1. History of liver cirrhosis. 2. Pancytopenia. 3. Prostate carcinoma. 4. History of bladder and prostate surgery. 5. History of TIPS. CURRENT MEDICATIONS: 1. Morphine sulfate p.r.n. 2. Protonix 40 mg p.o. daily. 3. Zytiga 1000 mg p.o. daily. 4. Prednisone 5 mg p.o. b.i.d. 5. Ceftriaxone IV. 6. Colace b.i.d. 7. Lovenox 40 mg subcutaneous daily. 8. [place] p.r.n. 9. Dilaudid p.r.n. 10. Synthroid 125 mcg p.o. q.a.m. ALLERGIES: The patient with no known drug allergies. PHYSICAL EXAMINATION: Currently awake and oriented to person. He will follow simple 1-step commands . He demonstrates antigravity strength in bilateral upper extremity and the right lower extremity. He is able to dorsiflex on the left lower extremity. PLAN: The patient has been admitted for comprehensive interdisciplinary acute rehab and is anticipat ed to tolerate 3 hours of daily therapy in divided doses for at least 5/7 days a week. The treatment plan will include: 1. Physical therapy to focus on bed mobility, transfers, wheelchair mobility and progressive ambulat ion as tolerated with the goal of having the patient reach a standby assist level. 2. Occupational therapy to focus on hygiene, grooming, dressing, bathing, and toileting activities w ith the goal of having patient reach standby assist level. 3. Neuropsychological evaluation for full cognitive assessment and retraining in addition to oversig ht of cognitive retraining. 4. Speech therapy for full cognitive assessment in addition to dysphagia management with the goal of having the patient meet nutritional needs by mouth. 5. Rehabilitation nursing for carryover of therapeutic interventions, the goal of continent of bowel and bladder, and the goal of pain adequately managed on oral medications. ESTIMATED LENGTH OF STAY: 14 days. DISPOSITION GOAL: Home with family. REHABILITATION BARRIER: Pain. INTERVENTION FOR BARRIER: Interdisciplinary approach. Estimated length of stay 14 days. I acknowledge that I performed a full physical examination on this patient within 24 hours of admissi on to the rehabilitation unit. I believe the patient is a good candidate for comprehensive interdisc iplinary care and is anticipated to make reasonable goals in a reasonable period of time as outlined above. Dictated By: AMANDA BURNS/NTS Conf#: [id number] DID#: [id number] CC: AMANDA KOENIG MD;*EndCC*
--- NOTE | 2018-10-13 13:29 | CONS ---
DATE OF ADMISSION: 10/12/2018 DATE OF CONSULTATION: 10/13/2018 TYPE OF CONSULTATION: Infectious disease. REASON FOR CONSULTATION: Antibiotic management. HISTORY OF PRESENT ILLNESS: Lety Gates is a 78-year-old male who [facility] after being hospitalized at [facility]. The patient i s status post mechanical fall and hip fracture status post ORIF, admitted to acute rehab for rehabili tation. His past problems include: 1. Chronic indwelling Vaughn catheter secondary to prostate cancer. 2. Urinary tract infection, on treatment. 3. Pancytopenia secondary to possibly iron deficiency, chronic liver cirrhosis, status post TIPS coa gulopathy and hypoalbuminemia, likely secondary to chronic liver cirrhosis. 4. History of prostate cancer with bladder invasion. 5. History of bladder resection. 6. CT evidence of left bladder wall mass with involvement of the left UVJ and irregular borders on t he prostate gland. 7. Chronic encephalopathy versus dementia. The patient is able to communicate but speech seems some what confused. 8. Recent hip fracture, status post open reduction and internal fixation. 9. Evidence of right hepatic surgery, TIPS on CT scan. On admission, white count was 4.0, H and H of 8.3 and 26.5, platelet count 69,000. BUN and creatinin e is 28/0.8. The patient currently denies fever and chills at times. PAST MEDICAL HISTORY: As outlined. FAMILY HISTORY: Noncontributory. SOCIAL HISTORY: He is sober at the present time. He does not smoke or abuse drugs. ALLERGIES: NONE TO PENICILLIN, SULFA OR FOODS. MEDICATIONS: Per chart. The patient is currently on Zosyn. REVIEW OF SYSTEMS: As per HPI. PHYSICAL EXAMINATION: GENERAL: The patient is alert, oriented, frail, in no acute distress. VITAL SIGNS: Stable. He is afebrile. SKIN: Without generalized rash. HEENT: Within normal limits. NECK: Supple. LYMPH NODES: None palpable. CHEST: Decreased breath sounds at the bases. HEART: Without murmur or gallop. ABDOMEN: Soft, nontender without organosplenomegaly or masses. EXTREMITIES Without cyanosis, clubbing or edema. RECTAL AND GENITAL: He has a Vaughn catheter in place. NEUROLOGICAL: The patient is occasionally confused, but has no focal abnormalities. DIAGNOSTIC DATA: On 10/09/2018, his hip x-ray showed postsurgical changes of left hip, status post f ixation of the hip fracture. MICROBIOLOGY: His urine shows no growth after 48 hours. LABORATORY DATA: His white count as noted is 4.2. IMPRESSION AND PLAN: He was admitted on 10/01/2018 with severe sepsis and his urine had no growth, s o it would be my recommendation to repeat urinalysis and if that is negative, to stop his Zosyn. I w ill dictate my findings to the hospitalist and to Dr. Fowler. Dictated By: RACHNA MATHEW MD, JD/NTS Conf#: [id number] DID#: [id number] CC: AMANDA KOENIG MD; ELADIA NASSAR MD;*[facility]*
[2018-10-13 14:00] VITALS: BP 110/58; RESP 18
[2018-10-13] MEDS: ACETAMINOPHEN 325 MG TAB PO PRN (14:44)
[2018-10-13] MEDS ORDERED: CEFTRIAXONE 1 GM/50 ML (PMX) 50 ML IVPB SCH (15:00)
[2018-10-13] MEDS: PIPER-TAZO 3.375 GM IV (PMX) 100 ML IVPB SCH ×2 (15:57→21:29)
[2018-10-13] MEDS ORDERED: morphine LIQ (10 MG/5 ML) CUP PO PRN (17:00)
--- NOTE | 2018-10-13 17:22 | NUR ---
EMAR reviewed, patient is on Zytiga as ordered. Laboratory tests results reviewed. Had spoken with primary nurse to notify MD of lab results especially abnormal T Bilirubin and Indirect Bilirubin. I had spoken also with Dr. Au about the laboratory results and the possible side effect of medicine on liver as per lexicomp, she recommended for the primary nurse to notify and speak to the urology of the patient about the medication. Primary nurse made aware.
--- NOTE | 2018-10-13 19:00 | NUR ---
RN forwarded doctor's names to Dr. Au. Pt was under the care of [place]'s Dr. Boo Arzate, Oncologist Dr. Sanchez and Radiologist Dr. Curtis Lange with tel [phone]. Gladys not given today. Endorsed to please follow-up with Dr. Au for the order. Addendum: 10/13/18 at 2214 by RAAD HULL RN Daughter of pt, Marian had spoken to Dr. Au over the phone when she came to see the pt.
[2018-10-13 20:00] VITALS: BP 104/53; PULSE 98; RESP 18
[2018-10-13] MEDS: SENNA TAB PO SCH (20:28)
[2018-10-14 02:29] VITALS: BP 123/67; PULSE 89; RESP 18
--- NOTE | 2018-10-14 05:53 | NUR ---
PATIENT SLEPT WELL. NO C/O PAIN OR DISCOMFORT. RECREATIONAL ACTIVITIES PROVIDED TO PATIENT; WATCHING TV. CALL LIGHT WITHIN REACH. ON CHEMO PRECAUTION
[2018-10-14] MEDS: PIPER-TAZO 3.375 GM IV (PMX) 100 ML IVPB SCH (06:07)
[2018-10-14] MEDS: PANTOPRAZOLE (EC) 40 MG TAB PO SCH (06:08)
[2018-10-14] MEDS: LEVOTHYROXINE 125 MCG TAB PO SCH (06:08)
[2018-10-14 07:30] VITALS: BP 113/57; PULSE 84; RESP 18
[2018-10-14] MEDS: [UNRECOGNIZED DRUG - OTHER] PO SCH (09:00)
[2018-10-14] MEDS ORDERED: predniSONE 5 MG TAB PO SCH (09:00)
[2018-10-14] MEDS: MEGESTROL (40 MG/ML) 10ML CUP PO SCH ×2 (09:13→22:39)
[2018-10-14] MEDS: ENOXAPARIN 40 MG/0.4 ML SYG SC SCH (09:14)
[2018-10-14] MEDS: HYDROmorphONE 1 MG/ML SYG IV PRN (09:15)
--- NOTE | 2018-10-14 11:33 | NUR ---
Notified Dr Au & Dr Arzate about the low protein level so chemo medication was not given. Will call daughter to ask for oncologist's contact details.
--- NOTE | 2018-10-14 11:40 | NUR ---
Dr Irizarry aware of the low protein level so she put the chemo meds on hold & ordered followup consultation with Dr Fowler about the Prostate CA. Noted & carried out.
--- NOTE | 2018-10-14 13:08 | NUR ---
Per Dr Isac Dorado, we can give the Zytiga medication even if protein level is below the normal level. The medication is more for hormonal & not really a chemo medication per oncologist Dr Freddy Sanchez.
--- NOTE | 2018-10-14 13:31 | CONS ---
Date/Time of Note Date/Time of Note DATE: 10/14/18 TIME: 13:31 Assessment/Plan Assessment/Plan Hospital Course Patient is lying comfortably in bed no fevers overnight he has Vaughn catheter that is draining cloudy bloody urine. Urine culture growing yeast, blood cultures negative Antimicrobials: Patient remains on Zosyn Physical examination: Cachectic well-developed elderly man in no distress. Head atraumatic normocephalic neck is supple chest rise symmetrical breath sounds diminished bases heart: S1-S2 abdomen soft bowel sounds present extremities no cyanosis Assessment: 1. 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 Status post open reduction internal fixation of left hip 10/09/18 4. Cachexia Plan: We are going to change antibiotics to oral fluconazole Result Diagram: 10/14/18 0712 10/14/18 0712 Results 24hrs Laboratory Tests Test 10/14/18 07:12 White Blood Count 3.0 #L Red Blood Count 2.32 L Hemoglobin 7.7 L Hematocrit 24.8 L Mean Corpuscular Volume 106.9 H Mean Corpuscular Hemoglobin 33.2 H Mean Corpuscular Hemoglobin Concent 31.0 L Red Cell Distribution Width 20.5 H Platelet Count 44 #L Mean Platelet Volume 10.1 Immature Granulocytes % 0.700 H Neutrophils % 56.6 Lymphocytes % 30.0 Monocytes % 10.7 Eosinophils % 1.7 Basophils % 0.3 Nucleated Red Blood Cells % 1.0 H Immature Granulocytes # 0.020 Neutrophils # 1.7 Lymphocytes # 0.9 Monocytes # 0.3 Eosinophils # 0.1 Basophils # 0.0 Nucleated Red Blood Cells # 0.0 Sodium Level 144 Potassium Level 3.8 Chloride Level 120 H Carbon Dioxide Level 19 L Anion Gap 5 Blood Urea Nitrogen 24 H Creatinine 0.81 Est Glomerular Filtrat Rate mL/min Glucose Level 111 Calcium Level 10.1 Magnesium Level 2.1 Total Bilirubin 2.6 H Direct Bilirubin 0.20 # Indirect Bilirubin 2.4 H Aspartate Amino Transf (AST/SGOT) 40 Alanine Aminotransferase (ALT/SGPT) 22 Alkaline Phosphatase 69 Total Protein 5.0 L Albumin 2.1 L Globulin 2.90 Albumin/Globulin Ratio 0.72 Consultation Date/Type/Reason Admit Date/Time Oct 12, 2018 at 20:00 Initial Consult Date Type of Consult id Exam/Review of Systems Vital Signs Vitals Vital Signs Date Temp Pulse Resp B/P (MAP) Pulse Ox O2 O2 Flow FiO2 Time Delivery Rate 10/14/18 98.1 84 18 113/57 95 Nasal 07:30 (75) Cannula Intake and Output 10/13/18 10/13/18 10/14/18 1414:59 22:59 06:59 IntakeIntake Total 1100 ml 100 ml OutputOutput Total 400 ml 500 ml BalanceBalance 700 ml -400 ml Medications Medications Current Medications Levothyroxine Sodium (Synthroid) 125 mcg BEFORE BREAKFAST PO Last administered on 10/14/18 06:08; Admin Dose 125 MCG; Start 10/12/18 at 22:01 Pantoprazole (Protonix Tab) 40 mg DAILY@06 PO Last administered on 10/14/18 06:08; Admin Dose 40 MG; Start 10/12/18 at 22:01 Ondansetron HCl (Zofran Inj) 4 mg Q6H PRN IV NAUSEA AND/OR VOMITING; Start 10/12/18 at 22:01 Acetaminophen (Tylenol Tab) 650 mg Q6H PRN PO PAIN LEVEL 1-3 OR FEVER Last administered on 10/13/18 14:44; Admin Dose 650 MG; Start 10/12/18 at 22:01 Hydromorphone HCl (Dilaudid) 1 mg Q3H PRN IV BREAKTHROUGH PAIN Last administered on 10/14/18 09:15; Admin Dose 1 MG; Start 10/12/18 at 22:01 IV Flush (NS 3 ml) 3 ml per protocol IV ; Start 10/12/18 at 22:01 Enoxaparin Sodium (Lovenox) 40 mg DAILY SC Last administered on 10/14/18 09:14; Admin Dose 40 MG; Start 10/12/18 at 22:01 Acetaminophen/ Hydrocodone Bitart ([place] (5/325)) 1 tab Q3H PRN PO MODERATE PAIN LEVEL 4-6; Start 10/12/18 at 22:01 Senna (Senokot) 1 tab HS PO Last administered on 10/13/18 20:28; Admin Dose 1 TAB; Start 10/13/18 at 21:00 Lactulose (Enulose) 20 gm DAILY PRN PO CONSTIPATION Last administered on 10/14/18 09:13; Admin Dose 20 GM; Start 10/13/18 at 00:00 Bisacodyl (Dulcolax Supp) 10 mg DAILY PRN [place] CONSTIPATION; Start 10/13/18 at 00:00 Piperacillin Sod/ Tazobactam Sod 100 ml @ 200 mls/hr Q8 IVPB Last administered on 10/14/18at 06:07; Admin Dose 200 MLS/HR; Start 10/13/18 at 14:00 Morphine Sulfate (morphine) 6 mg Q4H PRN PO SEVERE PAIN LEVEL 7-10; Start 10/13/18 at 17:00 Megestrol Acetate (Megace Susp) 400 mg BID PO Last administered on 10/14/18at 09:13; Admin Dose 400 MG; Start 10/14/18 at 09:00 Prednisone (Prednisone) 5 mg BID PO ; Start 10/14/18 at 21:00 Patient Own Medication 4 ea DAILY PO ; Start 10/15/18 at 09:00; Status AMY LUTHER NP Oct 14, 2018 13:31
--- NOTE | 2018-10-14 13:33 | PN ---
Date/Time of Note Date/Time of Note DATE: 10/14/18 TIME: 13:23 Subjective resting Objective Vital Signs Date Temp Pulse Resp B/P (MAP) Pulse Ox O2 O2 Flow FiO2 Time Delivery Rate 10/14/18 98.1 84 18 113/57 95 Nasal 07:30 (75) Cannula Intake and Output 10/13/18 10/13/18 10/14/18 1515:00 23:00 07:00 IntakeIntake Total 1100 ml 100 ml OutputOutput Total 400 ml 500 ml BalanceBalance 700 ml -400 ml Exam pulm-cta max assist Results/Medications Result Diagram: 10/14/18 0712 10/14/18 0712 Results 24 hrs Laboratory Tests Test 10/14/18 07:12 White Blood Count 3.0 #L Red Blood Count 2.32 L Hemoglobin 7.7 L Hematocrit 24.8 L Mean Corpuscular Volume 106.9 H Mean Corpuscular Hemoglobin 33.2 H Mean Corpuscular Hemoglobin Concent 31.0 L Red Cell Distribution Width 20.5 H Platelet Count 44 #L Mean Platelet Volume 10.1 Immature Granulocytes % 0.700 H Neutrophils % 56.6 Lymphocytes % 30.0 Monocytes % 10.7 Eosinophils % 1.7 Basophils % 0.3 Nucleated Red Blood Cells % 1.0 H Immature Granulocytes # 0.020 Neutrophils # 1.7 Lymphocytes # 0.9 Monocytes # 0.3 Eosinophils # 0.1 Basophils # 0.0 Nucleated Red Blood Cells # 0.0 Sodium Level 144 Potassium Level 3.8 Chloride Level 120 H Carbon Dioxide Level 19 L Anion Gap 5 Blood Urea Nitrogen 24 H Creatinine 0.81 Est Glomerular Filtrat Rate mL/min Glucose Level 111 Calcium Level 10.1 Magnesium Level 2.1 Total Bilirubin 2.6 H Direct Bilirubin 0.20 # Indirect Bilirubin 2.4 H Aspartate Amino Transf (AST/SGOT) 40 Alanine Aminotransferase (ALT/SGPT) 22 Alkaline Phosphatase 69 Total Protein 5.0 L Albumin 2.1 L Globulin 2.90 Albumin/Globulin Ratio 0.72 Medications Current Medications Levothyroxine Sodium (Synthroid) 125 mcg BEFORE BREAKFAST PO Last administered on 10/14/18at 06:08; Admin Dose 125 MCG; Start 10/12/18 at 22:01 Pantoprazole (Protonix Tab) 40 mg DAILY@06 PO Last administered on 10/14/18at 06:08; Admin Dose 40 MG; Start 10/12/18 at 22:01 Ondansetron HCl (Zofran Inj) 4 mg Q6H PRN IV NAUSEA AND/OR VOMITING; Start at 22:01 Acetaminophen (Tylenol Tab) 650 mg Q6H PRN PO PAIN LEVEL 1-3 OR FEVER Last administered on 10/13/18at 14:44; Admin Dose 650 MG; Start 10/12/18 at 22:01 Patient Own Medication 4 ea DAILY PO ; Start 10/12/18 at 22:01; Status Hold Hydromorphone HCl (Dilaudid) 1 mg Q3H PRN IV BREAKTHROUGH PAIN Last administered on 10/14/18 09:15; Admin Dose 1 MG; Start 10/12/18 at 22:01 IV Flush (NS 3 ml) 3 ml per protocol IV ; Start 10/12/18 at 22:01 Enoxaparin Sodium (Lovenox) 40 mg DAILY SC Last administered on 10/14/18at 09:14; Admin Dose 40 MG; Start 10/12/18 at 22:01 Acetaminophen/ Hydrocodone Bitart ([place] (5/325)) 1 tab Q3H PRN PO MODERATE PAIN LEVEL 4-6; Start 10/12/18 at 22:01 Senna (Senokot) 1 tab HS PO Last administered on 10/13/18at 20:28; Admin Dose 1 TAB; Start 10/13/18 at 21:00 Lactulose (Enulose) 20 gm DAILY PRN PO CONSTIPATION Last administered on 10/14/18at 09:13; Admin Dose 20 GM; Start 10/13/18 at 00:00 Bisacodyl (Dulcolax Supp) 10 mg DAILY PRN [place] CONSTIPATION; Start 10/13/18 at 00:00 Piperacillin Sod/ Tazobactam Sod 100 ml @ 200 mls/hr Q8 IVPB Last administered on 10/14/18at 06:07; Admin Dose 200 MLS/HR; Start 10/13/18 at 14:00 Morphine Sulfate (morphine) 6 mg Q4H PRN PO SEVERE PAIN LEVEL 7-10; Start 10/13/18 at 17:00 Megestrol Acetate (Megace Susp) 400 mg BID PO Last administered on 10/14/18at 09:13; Admin Dose 400 MG; Start 10/14/18 at 09:00 Prednisone (Prednisone) 5 mg BID PO ; Start 10/14/18 at 21:00 Assessment/Plan Additional Assessment/Plan Rehab- Left intertrochanteric hip fracture status post ORIF; Toxic metabolic encephalopathy. Activities as tolerated Heme/Onc- Case d/w Dr. Dorado. Patient will take his own chem med for Prostate Dysphagia on pureed diet. Urinary tract infection. Cirrhosis. Pancytopenia. History of prostate carcinoma. AMANDA KOENIG MD Oct 14, 2018 13:33
--- NOTE | 2018-10-14 13:51 | NUR ---
PT NOTE: Attempted to see pt for PT tx. 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 Pt sleeping, unable to keep awake despite max VT stim. Pt would wake up but quickly goes back to sleep. RN notified.
[2018-10-14 14:00] VITALS: BP 114/62; PULSE 82; RESP 20
[2018-10-14] MEDS ORDERED: FLUCONAZOLE 100 MG TAB ONE (14:29)
[2018-10-14] MEDS ORDERED: FLUCONAZOLE 100 MG TAB PO SCH (14:30)
--- NOTE | 2018-10-14 14:50 | PN ---
Date/Time of Note Date/Time of Note DATE: 10/14/18 TIME: 14:44 Objective Vitals Vital Signs Date Temp Pulse Resp B/P (MAP) Pulse Ox O2 O2 Flow FiO2 Time Delivery Rate 10/14/18 97.7 82 20 114/62 93 Room Air 14:00 (79) Intake and Output 10/13/18 10/13/18 10/14/18 1515:00 23:00 07:00 IntakeIntake Total 1100 ml 100 ml OutputOutput Total 400 ml 500 ml BalanceBalance 700 ml -400 ml Results Result Diagram: 10/14/1812 10/14/18 0712 Medications Medications Current Medications Levothyroxine Sodium (Synthroid) 125 mcg BEFORE BREAKFAST PO Last administered on 10/14/18at 06:08; Admin Dose 125 MCG; Start 10/12/18 at 22:01 Pantoprazole (Protonix Tab) 40 mg DAILY@06 PO Last administered on 10/14/18at 06:08; Admin Dose 40 MG; Start 10/12/18 at 22:01 Ondansetron HCl (Zofran Inj) 4 mg Q6H PRN IV NAUSEA AND/OR VOMITING; Start 10/12/18 at 22:01 Acetaminophen (Tylenol Tab) 650 mg Q6H PRN PO PAIN LEVEL 1-3 OR FEVER Last administered on 10/13/18at 14:44; Admin Dose 650 MG; Start 10/12/18 at 22:01 Hydromorphone HCl (Dilaudid) 1 mg Q3H PRN IV BREAKTHROUGH PAIN Last administered on 10/14/18at 09:15; Admin Dose 1 MG; Start 10/12/18 at 22:01 IV Flush (NS 3 ml) 3 ml per protocol IV ; Start 10/12/18 at 22:01 Enoxaparin Sodium (Lovenox) 40 mg DAILY SC Last administered on 10/14/18at 09:14; Admin Dose 40 MG; Start 10/12/18 at 22:01 Acetaminophen/ Hydrocodone Bitart ([place] (5/325)) 1 tab Q3H PRN PO MODERATE CRUZ N LEVEL 4-6; Start 10/12/18 at 22:01 Senna (Senokot) 1 tab HS PO Last administered on 10/13/18at 20:28; Admin Dose 1 TAB; Start 10/13/18 at 21:00 Lactulose (Enulose) 20 gm DAILY PRN PO CONSTIPATION Last administered on 10/14/18at 09:13; Admin Dose 20 GM; Start 10/13/18 at 00:00 Bisacodyl (Dulcolax Supp) 10 mg DAILY PRN [place] CONSTIPATION; Start 10/13/18 at 00:00 Morphine Sulfate (morphine) 6 mg Q4H PRN PO SEVERE PAIN LEVEL 7-10; Start 10/13/18 at 17:00 Megestrol Acetate (Megace Susp) 400 mg BID PO Last administered on 10/14/18at 09:13; Admin Dose 400 MG; Start 10/14/18 at 09:00 Prednisone (Prednisone) 5 mg BID PO ; Start 10/14/18 at 21:00 Patient Own Medication 4 ea DAILY PO ; Start 10/15/18 at 09:00 Fluconazole (Diflucan) 100 mg DAILY PO ; Start 10/14/18 at 14:30 VTE Prophylaxis Risk score (from [facility] [place]0 risk: 12 SCD applied (from [facility] [place]): Yes Lines/Catheters IV Catheter Type: Chavez in Place: Yes Cont'd chavez catheter reason: urinary retention Assessment/Plan Hospital Course Subjective Patient easily aroused, does not speak Faroese however is complaining of being cold Objective Physical exam General: Patient is laying in bed and answers questions Mentation: Patient is alert and oriented Head: Normocephalic atraumatic Eyes: EOMI, pupils reactive to light Neck: Supple, nontender, midline Respiratory: Clear to auscultation bilaterally Cardiovascular: regular rate, no obvious murmurs Gastrointestinal: non-tender to palpation, bowel sounds heard. Neurological: Moves all extremities spontaneously Skin: No new skin lesions 78 yo M s/p mechanical fall and hip fracture s/p ORIF admitted to ARU for rehab. Med conditions are as follows: 1. Chronic indwelling Chavez catheter secondary to #6 -UA noted -will speak to infectious disease, changed abx to fungal for now 2. Urinary tract infection on treatment -The patient has some mild hypotension when he was out of bed yesterday, monitor -fungal infection per ID so far. 3. Pancytopenia 2/ #4? r/o iron deficiency -No indication for transfusion at this time 4. Chronic liver cirrhosis status post TIPS 5. Coagulopathy and hypoalbuminemia likely secondary to #4 6. History of prostate cancer with bladder invasion and history of bladder resection and CT evidence of left bladder wall mass with involvement of left UVJ and irregular borders on prostate glands -Spoke to patient's most recent oncologist, Dr. Freddy Sanchez, and oncologist who works out of [facility], according to him he saw the patient in the inpatient setting at [facility] approximately 1 month ago and was supposed to follow-up in the outpatient setting however patient and patient's family stated that they would get somewhat closer to their home. Patient is to be on Zytiga on a daily basis no matter what and the prednisone is an adjuvant for the Zytiga hormonal-based chemotherapy. We will continue current meds. -Patient will need to follow-up with an oncologist as soon as he leaves the rehab unit 7. 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 Recent hip fracture status post mechanical fall status post ORIF 10/09/18 -in rehab 9. Evidence of right hepatic surgery (TIPS?) on CT -monitor MANFRED WHITE Oct 14, 2018 14:50
--- NOTE | 2018-10-14 17:00 | NUR ---
Patient in bed sleeping. Easily arousable. Offered TV & educational materials for recreational activities. Alert, oriented x 1 with periods of confusion. No SOB. Complained of pain so given PRN pain medication. Relieved after 30 minutes. Kept clean & dry. All due meds given. Call light within reach. Bed alarm on & in low position. Kept comfortable.
--- NOTE | 2018-10-14 19:03 | CONS ---
DATE OF ADMISSION: 10/12/2018 DATE OF CONSULTATION: 10/14/2018 TYPE OF CONSULTATION: Psychological. REFERRING PHYSICIAN: Amanda Dennis M.D. CONSULTING PSYCHOLOGIST: Loi Dahl, PhD. REASON FOR CONSULTATION: This consultation was requested by Dr. Juan C Dennis in order to evaluate the cognitive and emotional functioning of this patient related to his present medical condition. HISTORY OF PRESENT ILLNESS: The patient is a 78-year-old male. The patient has a history of multiple medical problems. He has a history of cirrhosis of the liver, Pancytopenia, prostate carcinoma, history of bladder and prostate surgery, and a history TIPS. The patient had a fall and fractured his left hip. The patient then had left hip ORIF on 10/09/2018. The patient was cleared medically and sent to the acute rehabilitation unit for acute multidisciplinary rehabilitation. The patient at the present time is very confused and lethargic. The patient speaks mainly Surinamese. The patient was so confused at the present time that he could not even be able to use the translation machine. The patient does have false teeth and tried to talk and his front false teeth were falling down. The patient definitely is confused and did not know his overall whereabouts. FAMILY AND SOCIAL HISTORY: The patient reportedly has a supportive family and hopes to return to his family upon discharge. MEDICATIONS: The patient is currently not on any psychotropic medications. SUBSTANCE USE: The patient at the present time is not clear if he continues to use alcohol or other drugs. The patient is not clear about his ability to let us know about whether or not he smokes. MENTAL STATUS EXAMINATION: APPEARANCE: The patient was seen in bed. He appears to be of average height and weight. BEHAVIOR: The patient was very lethargic and very sleepy. He had very difficult time waking up and could not even address the translation machine. MOOD AND AFFECT: The patient's mood appears to be depressed. Affect does appear to be slightly anxious and agitated. PERCEPTION: The patient reports no hallucinations or delusions. The patient is not alert to person, place, situation and time. MEMORY AND COGNITION: The patient's memory and cognition appear to be extremely impaired at the present time. He was not able to answer questions regarding recent and remote events. He could not say where he lives. He could not repeat it. His date. He could not really attend to even the translation machine. Overall, the patient is not functioning well cognitively at the present time. INTELLIGENCE: Intelligence is estimated in the average range when he is functioning adequately. INSIGHT: Poor. JUDGMENT: Poor. THOUGHT CONTENT: The patient appears to be concerned about his present medical condition. The patient does want to get better and return to his previous level of functioning. DISCUSSION: The patient at this point cannot benefit from any cognitive or behavioral psychotherapy. The patient would likely benefit from cognitive retraining and functioning through working on memories. The patient would need to be able to handle the translation machine and it appears that at one point reported by the staff that he. The patient could not do that today. 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 Thank you very much, Dr. Juan C Dennis, for referring this individual. Please do not hesitate to call if you have additional questions. Dictated By: LOI DAHL PHD INGRID/MELI Conf#: [id number] DID#: [id number] CC: AMANDA DENNIS MD;*EndCC* MTDD
[2018-10-14 20:00] VITALS: BP 118/58; PULSE 85; RESP 18
[2018-10-14] MEDS: predniSONE 5 MG TAB PO SCH (22:39)
[2018-10-14] MEDS: SENNA TAB PO SCH (22:39)
[2018-10-15 02:00] VITALS: BP 112/60; PULSE 88; RESP 18
--- NOTE | 2018-10-15 06:00 | NUR ---
RN NOTED THE DRESSING ON INCISION OF PT'S HIP WAS SOAKING WET WITH DRAINAGE. DRESSING CHANGED DONE. KEPT DRY AND CLAN. TURN AND REPOSITION Q 2 HOURS. ENCOURAGE FLUID TAKEN.
[2018-10-15] MEDS: LEVOTHYROXINE 125 MCG TAB PO SCH (06:03)
[2018-10-15] MEDS: PANTOPRAZOLE (EC) 40 MG TAB PO SCH (06:03)
[2018-10-15 07:00] VITALS: BP 108/53; PULSE 81; RESP 18
--- NOTE | 2018-10-15 08:12 | CONS ---
Date/Time of Note Date/Time of Note DATE: 10/15/18 TIME: 08:00 Assessment/Plan Assessment/Plan Assessment/Plan 78-year-old male who is known to have a history of prostate cancer on chemotherapy presented to the emergency room after a fall and was found to have a left hip fracture. He underwent open reduction internal fixation of the fracture and when he was stable he was transferred to the rehab unit for further care a urological consultation was requested because of the history of prostate cancer. The patient has cancer of the prostate with a [place] score 10 out of 10 and the cancer is invading into the bladder and causing also obstruction on the left ureter. Patient has been on abiraterone acetate 250 mg 4 tablets daily also on prednisone 5 mg 2 tablets twice a day. He does have an indwelling Vaughn catheter that is draining clear urine. The patient appears to be comfortable and as far as his prostate cancer is on the medications which are continued here and has an indwelling Vaughn catheter that is draining well. We will change the Vaughn catheter if needed. And after his discharge he could follow-up with his urologist. Result Diagram: 10/14/18 0712 10/14/18 0712 Consultation Date/Type/Reason Admit Date/Time Oct 12, 2018 at 20:00 Date of Consultation: Oct 15, 2018 Type of Consult Urology Reason for Consultation Prostate cancer Requesting Provider: ELADIA NASSAR MD, [facility] Hx of Present Illness 78-year-old male who is known to have a history of prostate cancer on chemotherapy presented to the emergency room after a fall and was found to have a left hip fracture. He underwent open reduction internal fixation of the fracture and when he was stable he was transferred to the rehab unit for further care a urological consultation was requested because of the history of prostate cancer. The patient has cancer of the prostate with a [place] score 10 out of 10 and the cancer is invading into the bladder and causing also obstruction on the left ureter. Patient has been on abiraterone acetate 250 mg 4 tablets daily also on prednisone 5 mg 2 tablets twice a day. He does have an indwelling Vaughn catheter that is draining clear urine. Constitutional: no complaints Eyes: no complaints ENT: no complaints Respiratory: no complaints Cardiovascular: No chest pain Gastrointestinal: no complaints Genitourinary: other (As per history of present illness) Musculoskeletal: other (Status post open reduction internal fixation of left hip fracture) Neurologic: no complaints Endocrine: no complaints Lymphatic: no complaints Psychological: no complaints Past Medical History Medical History: cancer (Prostate) Medications Current Medications Levothyroxine Sodium (Synthroid) 125 mcg BEFORE BREAKFAST PO Last administered on 10/15/18 06:03; Admin Dose 125 MCG; Start 10/12/18 at 22:01 Pantoprazole (Protonix Tab) 40 mg DAILY@06 PO Last administered on 10/15/18at 06:03; Admin Dose 40 MG; Start 10/12/18 at 22:01 Ondansetron HCl (Zofran Inj) 4 mg Q6H PRN IV NAUSEA AND/OR VOMITING; Start 10/12/18 at 22:01 Acetaminophen (Tylenol Tab) 650 mg Q6H PRN PO PAIN LEVEL 1-3 OR FEVER Last administered on 10/13/18at 14:44; Admin Dose 650 MG; Start 10/12/18 at 22:01 Hydromorphone HCl (Dilaudid) 1 mg Q3H PRN IV BREAKTHROUGH PAIN Last administered on 10/14/18at 09:15; Admin Dose 1 MG; Start 10/12/18 at 22:01 IV Flush (NS 3 ml) 3 ml per protocol IV ; Start 10/12/18 at 22:01 Enoxaparin Sodium (Lovenox) 40 mg DAILY SC Last administered on 10/14/18at 09:14; Admin Dose 40 MG; Start 10/12/18 at 22:01 Acetaminophen/ Hydrocodone Bitart ([place] (5/325)) 1 tab Q3H PRN PO MODERATE PAIN LEVEL 4-6; Start 10/12/18 at 22:01 Senna (Senokot) 1 tab HS PO Last administered on 10/14/18at 22:39; Admin Dose 1 TAB; Start 10/13/18 at 21:00 Lactulose (Enulose) 20 gm DAILY PRN PO CONSTIPATION Last administered on 10/14/18at 09:13; Admin Dose 20 GM; Start 10/13/18 at 00:00 Bisacodyl (Dulcolax Supp) 10 mg DAILY PRN [place] CONSTIPATION; Start 10/13/18 at 00:00 Morphine Sulfate (morphine) 6 mg Q4H PRN PO SEVERE PAIN LEVEL 7-10; Start 10/13/18 at 17:00 Megestrol Acetate (Megace Susp) 400 mg BID PO Last administered on 10/14/18at 22:39; Admin Dose 400 MG; Start 10/14/18 at 09:00 Prednisone (Prednisone) 5 mg BID PO Last administered on 10/14/18at 22:39; Admin Dose 5 MG; Start 10/14/18 at 21:00 Patient Own Medication 4 ea DAILY PO ; Start 10/15/18 at 09:00 Fluconazole (Diflucan) 100 mg DAILY PO Last administered on 10/14/18at 15:27; Admin Dose 100 MG; Start 10/14/18 at 14:30 Allergies: Coded Allergies: No Known Drug Allergies (Verified Allergy, Unknown, 10/07/18) Past Surgical History Past Surgical Hx: other (Left hip open reduction internal fixation, prostate surgery, transurethral resection of prostate and bladder tumor.) Social History Alcohol Use: sober Smoking Status: Never smoker Exam/Review of Systems Vital Signs Vitals Vital Signs Date Temp Pulse Resp B/P (MAP) Pulse Ox O2 O2 Flow FiO2 Time Delivery Rate 10/15/18 97.8 88 18 112/60 92 Room Air 02:00 (77) Intake and Output 10/14/18 10/14/18 10/15/18 1515:00 23:00 07:00 IntakeIntake Total 180 ml 480 ml 550 ml OutputOutput Total 300 ml 450 ml BalanceBalance 180 ml 180 ml 100 ml Exam Constitutional: alert, frail Psych: no complaints Head: normocephalic Eyes: nl conjunctiva ENMT: nl external ears & nose Neck: supple Respiratory: normal air movement; No wheezing Cardiovascular: No jugular venous distention (JVD) Gastrointestinal: soft Genitourinary - Male: nl penis, nl scrotum, other (Vaughn catheter draining clear urine) Extremities: No calf tenderness Neurological: nl mental status Medications Medications Current Medications Levothyroxine Sodium (Synthroid) 125 mcg BEFORE BREAKFAST PO Last administered on 10/15/18at 06:03; Admin Dose 125 MCG; Start 10/12/18 at 22:01 Pantoprazole (Protonix Tab) 40 mg DAILY@06 PO Last administered on 10/15/18at 06:03; Admin Dose 40 MG; Start 10/12/18 at 22:01 Ondansetron HCl (Zofran Inj) 4 mg Q6H PRN IV NAUSEA AND/OR VOMITING; Start 10/12/18 at 22:01 Acetaminophen (Tylenol Tab) 650 mg Q6H PRN PO PAIN LEVEL 1-3 OR FEVER Last administered on 10/13/18 14:44; Admin Dose 650 MG; Start 10/12/18 at 22:01 Hydromorphone HCl (Dilaudid) 1 mg Q3H PRN IV BREAKTHROUGH PAIN Last administered on 10/14/18 09:15; Admin Dose 1 MG; Start 10/12/18 at 22:01 IV Flush (NS 3 ml) 3 ml per protocol IV ; Start 10/12/18 at 22:01 Enoxaparin Sodium (Lovenox) 40 mg DAILY SC Last administered on 10/14/18 09:14; Admin Dose 40 MG; Start 10/12/18 at 22:01 Acetaminophen/ Hydrocodone Bitart ([place] (5/325)) 1 tab Q3H PRN PO MODERATE PAIN LEVEL 4-6; Start 10/12/18 at 22:01 Senna (Senokot) 1 tab HS PO Last administered on 10/14/18 22:39; Admin Dose 1 TAB; Start 10/13/18 at 21:00 Lactulose (Enulose) 20 gm DAILY PRN PO CONSTIPATION Last administered on 10/14/18 09:13; Admin Dose 20 GM; Start 10/13/18 at 00:00 Bisacodyl (Dulcolax Supp) 10 mg DAILY PRN [place] CONSTIPATION; Start 10/13/18 at 00:00 Morphine Sulfate (morphine) 6 mg Q4H PRN PO SEVERE PAIN LEVEL 7-10; Start 10/13/18 at 17:00 Megestrol Acetate (Megace Susp) 400 mg BID PO Last administered on 10/14/18 22 :39; Admin Dose 400 MG; Start 10/14/18 at 09:00 Prednisone (Prednisone) 5 mg BID PO Last administered on 10/14/18 22:39; Admin Dose 5 MG; Start 10/14/18 at 21:00 Patient Own Medication 4 ea DAILY PO ; Start 10/15/18 at 09:00 Fluconazole (Diflucan) 100 mg DAILY PO Last administered on 10/14/18 15:27; Admin Dose 100 MG; Start 10/14/18 at 14:30 KRISTIN LINARES MD Oct 15, 2018 08:10
[2018-10-15] MEDS ORDERED: NEUTRA-PHOS 250 MG PACKET PO ONE ×2 (11:30→16:30)
[2018-10-15] MEDS: MEGESTROL (40 MG/ML) 10ML CUP PO SCH ×2 (11:40→20:54)
[2018-10-15] MEDS: predniSONE 5 MG TAB PO SCH ×2 (11:40→20:54)
[2018-10-15] MEDS: ENOXAPARIN 40 MG/0.4 ML SYG SC SCH (12:04)
--- NOTE | 2018-10-15 12:05 | NUR ---
PT NOTE Pt seen for PT from 10:15-12:05. Pt agreed to Rx. Explained to pt that he will have concurrent Rx after a 45 minute session with me. However, individual Rx was continued due to orthostatic hypotension, pt's goal to have a BM, and difficulty with communication despite use of Chadian translators due to speech difficulty w/o dentures. Dentures were cleaned thoroughly and ordered fixodent. Pt sat on the commode for >20 mins but failed to have a BM. Noted impulsivity, requiring max cues for safety. Pt tries to get up from commode and tends to scoot excessively forward. arrived towards the end of Rx and educated on POC, barriers during Rx including denture issue, orthostatic hypotension, confusion, forgetfulness and pain. She was also notified of pt touching his BM yesterday. [employer] used during conversation w/ her. encouraged to be present for Rx and stated she will try. Cont POC.
--- NOTE | 2018-10-15 12:44 | PN ---
Date/Time of Note Date/Time of Note DATE: 10/15/18 TIME: 12:42 Subjective RN reports wound drainage Objective Vital Signs Date Temp Pulse Resp B/P (MAP) Pulse Ox O2 O2 Flow FiO2 Time Delivery Rate 10/15/18 98.2 81 18 108/53 94 Room Air 07:00 (71) Intake and Output 10/14/18 10/14/18 10/15/18 1515:00 23:00 07:00 IntakeIntake Total 180 ml 480 ml 950 ml OutputOutput Total 300 ml 450 ml BalanceBalance 180 ml 180 ml 500 ml Exam pulm-cta max transfer Results/Medications Result Diagram: 10/15/18 0652 10/15/18 0652 Results 24 hrs Laboratory Tests Test 10/15/18 06:52 White Blood Count 3.4 L Red Blood Count 2.45 L Hemoglobin 8.2 L Hematocrit 26.6 L Mean Corpuscular Volume 108.6 H Mean Corpuscular Hemoglobin 33.5 H Mean Corpuscular Hemoglobin Concent 30.8 L Red Cell Distribution Width 21.0 H Platelet Count 70 #L Mean Platelet Volume 10.9 H Immature Granulocytes % 0.600 H Neutrophils % 56.3 Lymphocytes % 29.4 Monocytes % 10.5 Eosinophils % 2.6 Basophils % 0.6 Nucleated Red Blood Cells % 1.2 H Immature Granulocytes # 0.020 Neutrophils # 1.9 Lymphocytes # 1.0 Monocytes # 0.4 Eosinophils # 0.1 Basophils # 0.0 Nucleated Red Blood Cells # 0.0 Sodium Level 143 Potassium Level 4.0 Chloride Level 117 H Carbon Dioxide Level 21 Anion Gap 5 Blood Urea Nitrogen 22 H Creatinine 0.71 Est Glomerular Filtrat Rate mL/min Glucose Level 113 Calcium Level 10.2 Phosphorus Level 1.9 L Magnesium Level 2.1 Medications Current Medications Levothyroxine Sodium (Synthroid) 125 mcg BEFORE BREAKFAST PO Last administered on 10/15/18at 06:03; Admin Dose 125 MCG; Start 10/12/18 at 22:01 Pantoprazole (Protonix Tab) 40 mg DAILY@06 PO Last administered on 10/15/18at 06:03; Admin Dose 40 MG; Start 10/12/18 at 22:01 Ondansetron HCl (Zofran Inj) 4 mg Q6H PRN IV NAUSEA AND/OR VOMITING; Start 10/12/18 at 22:01 Acetaminophen (Tylenol Tab) 650 mg Q6H PRN PO PAIN LEVEL 1-3 OR FEVER Last administered on 10/13/18at 14:44; Admin Dose 650 MG; Start 10/12/18 at 22:01 Hydromorphone HCl (Dilaudid) 1 mg Q3H PRN IV BREAKTHROUGH PAIN Last administered on 10/14/18at 09:15; Admin Dose 1 MG; Start 10/12/18 at 22:01 IV Flush (NS 3 ml) 3 ml per protocol IV ; Start 10/12/18 at 22:01 Enoxaparin Sodium (Lovenox) 40 mg DAILY SC Last administered on 10/15/18at 12:04; Admin Dose 40 MG; Start 10/12/18 at 22:01 Acetaminophen/ Hydrocodone Bitart ([place] (5/325)) 1 tab Q3H PRN PO MODERATE PAIN LEVEL 4-6; Start 10/12/18 at 22:01 Senna (Senokot) 1 tab HS PO Last administered on 10/14/18at 22:39; Admin Dose 1 TAB; Start 10/13/18 at 21:00 Lactulose (Enulose) 20 gm DAILY PRN PO CONSTIPATION Last administered on 10/14/18at 09:13; Admin Dose 20 GM; Start 10/13/18 at 00:00 Bisacodyl (Dulcolax Supp) 10 mg DAILY PRN [place] CONSTIPATION; Start 10/13/18 at 00:00 Morphine Sulfate (morphine) 6 mg Q4H PRN PO SEVERE PAIN LEVEL 7-10; Start 10/13/18 at 17:00 Megestrol Acetate (Megace Susp) 400 mg BID PO Last administered on 10/15/18at 11:40; Admin Dose 400 MG; Start 10/14/18 at 09:00 Prednisone (Prednisone) 5 mg BID PO Last administered on 10/15/18at 11:40; Admin Dose 5 MG; Start 10/14/18 at 21:00 Voriconazole (Vfend) 200 mg BID PO ; Start 10/15/18 at 11:24 Non-Formulary Medication 4 dose DAILY PO ; Start 10/15/18 at 12:30 Assessment/Plan Additional Assessment/Plan Rehab- Left intertrochanteric hip fracture status post ORIF; Toxic metabolic encephalopathy. Continue activities as tolerated Heme/Onc- patient receiving his own chemo meds Dysphagia on pureed diet-speech Urinary tract infection. Cirrhosis. Pancytopenia. History of prostate carcinoma. AMANDA KOENIG MD Oct 15, 2018 12:44
--- NOTE | 2018-10-15 12:59 | NUR ---
CHEMOTHERAPY VERIFICATION ZYTIGA (abiraterone): Patient admitted for rehabilitation s/p mechanical fall with secondary diagnosis of metastatic prostate CA. Contacted to verify medication as certified chemotherapy/biotherapy RN. Zytiga 1000 mg PO daily is standard dose and treatment for disease state. Nelly Roe, primary RN reviewed side effects with patient and family member utilizing translation services at time of administration. All elements in patient's room for safe administration per policy present. Please note that two days prior, chemotherapy certified RN completed initial screening and brought forth concerns for continuation of this treatment as appropriate. Medical clearance received from Dr. Dorado. This TELEMARKETING FUNDRAISER spoke to Dr. Dorado personally on the unit at the time of administration. Per Dr. Dorado, the prescribing oncologist was contacted and the decision was made to continue treatment. Rory Khalil, [facility]- [phone]
[2018-10-15] MEDS ORDERED: SILVER NITRATE SWAB TOP STA (13:06)
--- NOTE | 2018-10-15 13:17 | NUR ---
Thermos cup will be brought home by Finn, of patient. Marian, daughter of pt made aware. Belonging form noted by RN. Dr. Mcguire in to see pt. Silver Nitrate sticks, 2 sticks ordered by the . Awaiting for pharmacy to send it.
[2018-10-15] MEDS ORDERED: SILVER NITRATE SWAB TOP ONE (13:30)
[2018-10-15 14:00] VITALS: BP 119/57; PULSE 90; RESP 18
--- NOTE | 2018-10-15 14:25 | CONS ---
Date/Time of Note Date/Time of Note DATE: 10/15/18 TIME: 14:24 Assessment/Plan Assessment/Plan Hospital Course Patient is alert feels good, at bedside, no fevers overnight Antimicrobials: Voriconazole Physical examination: Cachectic well-developed elderly man in no distress. Head atraumatic normocephalic neck is supple chest rise symmetrical breath sounds diminished bases heart: S1-S2 abdomen soft bowel sounds present extremities no cyanosis Assessment: 1. 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 Status post open reduction internal fixation of left hip 10/09/18 4. Cachexia 5. Bilateral lower extremities onychomycosis Plan: Remains stable continue present care, urology recommendations noted Discussed with and patient at bedside Result Diagram: 10/15/18 0652 10/15/18 0652 Results 24hrs Laboratory Tests Test 10/15/18 06:52 White Blood Count 3.4 L Red Blood Count 2.45 L Hemoglobin 8.2 L Hematocrit 26.6 L Mean Corpuscular Volume 108.6 H Mean Corpuscular Hemoglobin 33.5 H Mean Corpuscular Hemoglobin Concent 30.8 L Red Cell Distribution Width 21.0 H Platelet Count 70 #L Mean Platelet Volume 10.9 H Immature Granulocytes % 0.600 H Neutrophils % 56.3 Lymphocytes % 29.4 Monocytes % 10.5 Eosinophils % 2.6 Basophils % 0.6 Nucleated Red Blood Cells % 1.2 H Immature Granulocytes # 0.020 Neutrophils # 1.9 Lymphocytes # 1.0 Monocytes # 0.4 Eosinophils # 0.1 Basophils # 0.0 Nucleated Red Blood Cells # 0.0 Sodium Level 143 Potassium Level 4.0 Chloride Level 117 H Carbon Dioxide Level 21 Anion Gap 5 Blood Urea Nitrogen 22 H Creatinine 0.71 Est Glomerular Filtrat Rate mL/min Glucose Level 113 Calcium Level 10.2 Phosphorus Level 1.9 L Magnesium Level 2.1 Consultation Date/Type/Reason Admit Date/Time Oct 12, 2018 at 20:00 Initial Consult Date Type of Consult id Requesting Provider: [facility]ASSAR [facility] Exam/Review of Systems Vital Signs Vitals Vital Signs Date Temp Pulse Resp B/P (MAP) Pulse Ox O2 O2 Flow FiO2 Time Delivery Rate 10/15/18 98.2 81 18 108/53 94 Room Air 07:00 (71) Intake and Output 1/16/19 1/16/19 1/17/19 1515:00 23:00 07:00 IntakeIntake Total 180 ml 480 ml 950 ml OutputOutput Total 300 ml 450 ml BalanceBalance 180 ml 180 ml 500 ml Medications Medications Current Medications Levothyroxine Sodium (Synthroid) 125 mcg BEFORE BREAKFAST PO Last administered on 10/15/18at 06:03; Admin Dose 125 MCG; Start 10/12/18 at 22:01 Pantoprazole (Protonix Tab) 40 mg DAILY@06 PO Last administered on 10/15/18at 06:03; Admin Dose 40 MG; Start 10/12/18 at 22:01 Ondansetron HCl (Zofran Inj) 4 mg Q6H PRN IV NAUSEA AND/OR VOMITING; Start 10/12/18 at 22:01 Acetaminophen (Tylenol Tab) 650 mg Q6H PRN PO PAIN LEVEL 1-3 OR FEVER Last administered on 10/13/18at 14:44; Admin Dose 650 MG; Start 10/12/18 at 22:01 Hydromorphone HCl (Dilaudid) 1 mg Q3H PRN IV BREAKTHROUGH PAIN Last administered on 10/14/18at 09:15; Admin Dose 1 MG; Start 10/12/18 at 22:01 IV Flush (NS 3 ml) 3 ml per protocol IV ; Start 10/12/18 at 22:01 Enoxaparin Sodium (Lovenox) 40 mg DAILY SC Last administered on 10/15/18at 12:04; Admin Dose 40 MG; Start 10/12/18 at 22:01 Acetaminophen/ Hydrocodone Bitart ([place] (5/325)) 1 tab Q3H PRN PO MODERATE PAIN LEVEL 4-6; Start 10/12/18 at 22:01 Senna (Senokot) 1 tab HS PO Last administered on 10/14/18at 22:39; Admin Dose 1 TAB; Start 10/13/18 at 21:00 Lactulose (Enulose) 20 gm DAILY PRN PO CONSTIPATION Last administered on 10/14/18at 09:13; Admin Dose 20 GM; Start 10/13/18 at 00:00 Bisacodyl (Dulcolax Supp) 10 mg DAILY PRN [place] CONSTIPATION; Start 10/13/18 at 00:00 Morphine Sulfate (morphine) 6 mg Q4H PRN PO SEVERE PAIN LEVEL 7-10; Start 10/13/18 at 17:00 Megestrol Acetate (Megace Susp) 400 mg BID PO Last administered on 10/15/18at 11:40; Admin Dose 400 MG; Start 10/14/18 at 09:00 Prednisone (Prednisone) 5 mg BID PO Last administered on 10/15/18at 11:40; Admin Dose 5 MG; Start 10/14/18 at 21:00 Voriconazole (Vfend) 200 mg BID PO ; Start 10/15/18 at 11:24 Non-Formulary Medication 4 dose DAILY PO Last administered on 10/15/18at 12:45; Admin Dose 4 DOSE; Start 10/15/18 at 12:30 Clotrimazole (Lotrimin Cr) 1 applic BID TOP ; Start 10/15/18 at 21:00 AMY KWONG NP Oct 15, 2018 14:25
--- NOTE | 2018-10-15 15:29 | PN ---
Date/Time of Note Date/Time of Note DATE: 10/15/18 TIME: 15:29 Objective Vitals Vital Signs Date Temp Pulse Resp B/P (MAP) Pulse Ox O2 O2 Flow FiO2 Time Delivery Rate 10/15/18 98.2 81 18 108/53 94 Room Air 07:00 (71) Intake and Output 10/14/18 10/14/18 10/15/18 1515:00 23:00 07:00 IntakeIntake Total 180 ml 480 ml 950 ml OutputOutput Total 300 ml 450 ml BalanceBalance 180 ml 180 ml 500 ml Results Result Diagram: 10/15/1852 10/15/1852 Medications Medications Current Medications Levothyroxine Sodium (Synthroid) 125 mcg BEFORE BREAKFAST PO Last administered on 10/15/18at 06:03; Admin Dose 125 MCG; Start 10/12/18 at 22:01 Pantoprazole (Protonix Tab) 40 mg DAILY@06 PO Last administered on 10/15/18at 06:03; Admin Dose 40 MG; Start 10/12/18 at 22:01 Ondansetron HCl (Zofran Inj) 4 mg Q6H PRN IV NAUSEA AND/OR VOMITING; Start 10/12/18 at 22:01 Acetaminophen (Tylenol Tab) 650 mg Q6H PRN PO PAIN LEVEL 1-3 OR FEVER Last administered on 10/13/18at 14:44; Admin Dose 650 MG; Start 10/12/18 at 22:01 Hydromorphone HCl (Dilaudid) 1 mg Q3H PRN IV BREAKTHROUGH PAIN Last administered on 10/14/18at 09:15; Admin Dose 1 MG; Start 10/12/18 at 22:01 IV Flush (NS 3 ml) 3 ml per protocol IV ; Start 10/12/18 at 22:01 Enoxaparin Sodium (Lovenox) 40 mg DAILY SC Last administered on 10/15/18at 12:04; Admin Dose 40 MG; Start 10/12/18 at 22:01 Acetaminophen/ Hydrocodone Bitart ([place] (5/325)) 1 tab Q3H PRN PO MODERATE PAIN LEVEL 4-6; Start 10/12/18 at 22:01 Senna (Senokot) 1 tab HS PO Last administered on 10/14/18at 22:39; Admin Dose 1 TAB; Start 10/13/18 at 21:00 Lactulose (Enulose) 20 gm DAILY PRN PO CONSTIPATION Last administered on 10/14/18at 09:13; Admin Dose 20 GM; Start 10/13/18 at 00:00 Bisacodyl (Dulcolax Supp) 10 mg DAILY PRN [place] CONSTIPATION; Start 10/13/18 at 00:00 Morphine Sulfate (morphine) 6 mg Q4H PRN PO SEVERE PAIN LEVEL 7-10; Start 10/13/18 at 17:00 Megestrol Acetate (Megace Susp) 400 mg BID PO Last administered on 10/15/18at 11:40; Admin Dose 400 MG; Start 10/14/18 at 09:00 Prednisone (Prednisone) 5 mg BID PO Last administered on 10/15/18at 11:40; Admin Dose 5 MG; Start 10/14/18 at 21:00 Voriconazole (Vfend) 200 mg BID PO ; Start 10/15/18 at 11:24 Non-Formulary Medication 4 dose DAILY PO Last administered on 10/15/18at 12:45; Admin Dose 4 DOSE; Start 10/15/18 at 12:30 Clotrimazole (Lotrimin Cr) 1 applic BID TOP ; Start 10/15/18 at 21:00 VTE Prophylaxis Risk score (from Ns)>0 risk: 14 SCD applied (from Nsg): No SCD contraindication: other Lines/Catheters IV Catheter Type: Chavez in Place: Yes Cont'd chavez catheter reason: urinary retention Assessment/Plan Hospital Course Subjective no acute overnight events, is complaining about patient's yellow toenails Objective Physical exam General: Patient is laying in bed and answers questions Mentation: Patient is alert and oriented Head: Normocephalic atraumatic Eyes: EOMI, pupils reactive to light Neck: Supple, nontender, midline Respiratory: Clear to auscultation bilaterally Cardiovascular: regular rate, no obvious murmurs Gastrointestinal: non-tender to palpation, bowel sounds heard. Neurological: Moves all extremities spontaneously Skin: No new skin lesions 78 yo M s/p mechanical fall and hip fracture s/p ORIF admitted to ARU for rehab. Med conditions are as follows: 1. Chronic indwelling Chavez catheter secondary to #6 -UA noted -will speak to infectious disease, changed abx to fungal for now 2. Urinary tract infection on treatment -The patient has some mild hypotension when he was out of bed yesterday, monitor -fungal infection per ID so far. 3. Pancytopenia 2/2 #4? r/o iron deficiency -No indication for transfusion at this time 4. Chronic liver cirrhosis status post TIPS 5. Coagulopathy and hypoalbuminemia likely secondary to #4 6. History of prostate cancer with bladder invasion and history of bladder resection and CT evidence of left bladder wall mass with involvement of left UVJ and irregular borders on prostate glands -Spoke to patient's most recent oncologist, Dr. Freddy Sanchez, and oncologist who works out of [facility], according to him he saw the patient in the inpatient setting at [facility] approximately 1 month ago and was supposed to follow-up in the outpatient setting however patient and patient's family stated that they would get somewhat closer to their home. Patient is to be on Zytiga on a daily basis no matter what and the prednisone is an adjuvant for the Zytiga hormonal-based chemotherapy. We will continue current meds. -Patient will need to follow-up with an oncologist as soon as he leaves the rehab unit 7. 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 Recent hip fracture status post mechanical fall status post ORIF 10/09/18 -in rehab 9. Evidence of right hepatic surgery (TIPS?) on CT -monitor MANFRED WHITE Oct 15, 2018 15:29
[2018-10-15] MEDS: VORICONAZOLE 200 MG TAB PO SCH ×3 (16:50→20:54)
[2018-10-15] MEDS: HYDROCODONE/APAP (5/325) TAB PO PRN (17:59)
[2018-10-15 19:32] VITALS: BP 114/55; PULSE 91; RESP 20
--- NOTE | 2018-10-15 19:50 | CONS ---
Date/Time of Note Date/Time of Note DATE: 10/15/18 TIME: 19:50 Assessment/Plan Assessment/Plan Assessment/Plan Onychomycosis Tinea pedis L Hip fracture Plan Nails were debrided x10 with nail nipper. Patient tolerated procedure well. Clotrimazole daily to his feet. Offload heels with pillows. Patient may follow up in outpatient clinic. Result Diagram: 10/15/18 0652 10/15/18 0652 Results 24hrs Laboratory Tests Test 10/15/18 06:52 White Blood Count 3.4 L Red Blood Count 2.45 L Hemoglobin 8.2 L Hematocrit 26.6 L Mean Corpuscular Volume 108.6 H Mean Corpuscular Hemoglobin 33.5 H Mean Corpuscular Hemoglobin Concent 30.8 L Red Cell Distribution Width 21.0 H Platelet Count 70 #L Mean Platelet Volume 10.9 H Immature Granulocytes % 0.600 H Neutrophils % 56.3 Lymphocytes % 29.4 Monocytes % 10.5 Eosinophils % 2.6 Basophils % 0.6 Nucleated Red Blood Cells % 1.2 H Immature Granulocytes # 0.020 Neutrophils # 1.9 Lymphocytes # 1.0 Monocytes # 0.4 Eosinophils # 0.1 Basophils # 0.0 Nucleated Red Blood Cells # 0.0 Sodium Level 143 Potassium Level 4.0 Chloride Level 117 H Carbon Dioxide Level 21 Anion Gap 5 Blood Urea Nitrogen 22 H Creatinine 0.71 Est Glomerular Filtrat Rate mL/min Glucose Level 113 Calcium Level 10.2 Phosphorus Level 1.9 L Magnesium Level 2.1 Consultation Date/Type/Reason Admit Date/Time Oct 12, 2018 at 20:00 Hx of Present Illness 78 y/o M with a history of multiple medical comorbidities including liver cirrhosis, pancytopenia, prostate CA and a history of bladder and prostate surgery, who was admitted after a mechanical fall with resultant left lower extremity pain and workup revealing left intertrochanteric hip fracture. The patient underwent left hip ORIF on 10/09/2018. The patient's hospital course has been notable for significant pain, confusion, and impairments in self-care and mobility as compared to baseline. Patient accompanied by noticed elongated thickened toe nails and requested them to be debrided. Past Medical History Medical History: cancer (Prostate) Medications Current Medications Levothyroxine Sodium (Synthroid) 125 mcg BEFORE BREAKFAST PO Last administered on 10/15/18at 06:03; Admin Dose 125 MCG; Start 10/12/18 at 22:01 Pantoprazole (Protonix Tab) 40 mg DAILY@06 PO Last administered on 10/15/18 06:03; Admin Dose 40 MG; Start 10/12/18 at 22:01 Ondansetron HCl (Zofran Inj) 4 mg Q6H PRN IV NAUSEA AND/OR VOMITING; Start 10/12/18 at 22:01 Acetaminophen (Tylenol Tab) 650 mg Q6H PRN PO PAIN LEVEL 1-3 OR FEVER Last administered on 10/13/18at 14:44; Admin Dose 650 MG; Start 10/12/18 at 22:01 Hydromorphone HCl (Dilaudid) 1 mg Q3H PRN IV BREAKTHROUGH PAIN Last administered on 10/14/18 09:15; Admin Dose 1 MG; Start 10/12/18 at 22:01 IV Flush (NS 3 ml) 3 ml per protocol IV ; Start 10/12/18 at 22:01 Enoxaparin Sodium (Lovenox) 40 mg DAILY SC Last administered on 10/15/18at 12:04; Admin Dose 40 MG; Start 10/12/18 at 22:01 Acetaminophen/ Hydrocodone Bitart ([place] (5/325)) 1 tab Q3H PRN PO MODERATE PAIN LEVEL 4-6 Last administered on 10/15/18at 17:59; Admin Dose 1 TAB; Start 10/12/18 at 22:01 Senna (Senokot) 1 tab HS PO Last administered on 10/14/18 22:39; Admin Dose 1 TAB; Start 10/13/18 at 21:00 Lactulose (Enulose) 20 gm DAILY PRN PO CONSTIPATION Last administered on 10/14/18at 09:13; Admin Dose 20 GM; Start 10/13/18 at 00:00 Bisacodyl (Dulcolax Supp) 10 mg DAILY PRN [place] CONSTIPATION; Start 10/13/18 at 00:00 Morphine Sulfate (morphine) 6 mg Q4H PRN PO SEVERE PAIN LEVEL 7-10; Start 10/13/18 at 17:00 Megestrol Acetate (Megace Susp) 400 mg BID PO Last administered on 10/15/18at 11:40; Admin Dose 400 MG; Start 10/14/18 at 09:00 Prednisone (Prednisone) 5 mg BID PO Last administered on 10/15/18at 11:40; Admin Dose 5 MG; Start 10/14/18 at 21:00 Voriconazole (Vfend) 200 mg BID PO Last administered on 10/15/18at 16:51; Admin Dose 200 MG; Start 10/15/18 at 11:24 Non-Formulary Medication 4 dose DAILY PO Last administered on 10/15/18at 12:45; Admin Dose 4 DOSE; Start 10/15/18 at 12:30 Clotrimazole (Lotrimin Cr) 1 applic BID TOP ; Start 10/15/18 at 21:00 Allergies: Coded Allergies: No Known Drug Allergies (Verified Allergy, Unknown, 10/07/18) Past Surgical History Past Surgical Hx: other (Left hip open reduction internal fixation, prostate surgery, transurethral resection of prostate and bladder tumor.) Social History Alcohol Use: sober Smoking Status: Never smoker Exam/Review of Systems Vital Signs Vitals Vital Signs Date Temp Pulse Resp B/P (MAP) Pulse Ox O2 O2 Flow FiO2 Time Delivery Rate 10/15/18 98.5 91 20 114/55 95 Room Air 19:32 (74) Intake and Output 10/14/18 10/14/18 10/15/18 1414:59 22:59 06:59 IntakeIntake Total 180 ml 480 ml 950 ml OutputOutput Total 300 ml 450 ml BalanceBalance 180 ml 180 ml 500 ml Exam palpable pedal pulses protective sensations intact elongated thickened mycotic nails white scaling lesions in mocassin distribution No open lesions appreciated. Medications Medications Current Medications Levothyroxine Sodium (Synthroid) 125 mcg BEFORE BREAKFAST PO Last administered on 10/15/18at 06:03; Admin Dose 125 MCG; Start 10/12/18 at 22:01 Pantoprazole (Protonix Tab) 40 mg DAILY@06 PO Last administered on 10/15/18at 06:03; Admin Dose 40 MG; Start 10/12/18 at 22:01 Ondansetron HCl (Zofran Inj) 4 mg Q6H PRN IV NAUSEA AND/OR VOMITING; Start 10/12/18 at 22:01 Acetaminophen (Tylenol Tab) 650 mg Q6H PRN PO PAIN LEVEL 1-3 OR FEVER Last administered on 10/13/18at 14:44; Admin Dose 650 MG; Start 10/12/18 at 22:01 Hydromorphone HCl (Dilaudid) 1 mg Q3H PRN IV BREAKTHROUGH PAIN Last administered on 10/14/18 09:15; Admin Dose 1 MG; Start 10/12/18 at 22:01 IV Flush (NS 3 ml) 3 ml per protocol IV ; Start 10/12/18 at 22:01 Enoxaparin Sodium (Lovenox) 40 mg DAILY SC Last administered on 10/15/18 12:04; Admin Dose 40 MG; Start 10/12/18 at 22:01 Acetaminophen/ Hydrocodone Bitart ([place] (5/325)) 1 tab Q3H PRN PO MODERATE PAIN LEVEL 4-6 Last administered on 10/15/18 17:59; Admin Dose 1 TAB; Start 10/12/18 at 22:01 Senna (Senokot) 1 tab HS PO Last administered on 10/14/18 22:39; Admin Dose 1 TAB; Start 10/13/18 at 21:00 Lactulose (Enulose) 20 gm DAILY PRN PO CONSTIPATION Last administered on 10/14/18 09:13; Admin Dose 20 GM; Start 10/13/18 at 00:00 Bisacodyl (Dulcolax Supp) 10 mg DAILY PRN [place] CONSTIPATION; Start 10/13/18 at 00:00 Morphine Sulfate (morphine) 6 mg Q4H PRN PO SEVERE PAIN LEVEL 7-10; Start 10/13/18 at 17:00 Megestrol Acetate (Megace Susp) 400 mg BID PO Last administered on 10/15/18at 11:40; Admin Dose 400 MG; Start 10/14/18 at 09:00 Prednisone (Prednisone) 5 mg BID PO Last administered on 10/15/18at 11:40; Admin Dose 5 MG; Start 10/14/18 at 21:00 Voriconazole (Vfend) 200 mg BID PO Last administered on 10/15/18 16:51; Admin Dose 200 MG; Start 10/15/18 at 11:24 Non-Formulary Medication 4 dose DAILY PO Last administered on 10/15/18 12:45; Admin Dose 4 DOSE; Start 10/15/18 at 12:30 Clotrimazole (Lotrimin Cr) 1 applic BID TOP ; Start 10/15/18 at 21:00 JOSE E ELIZALDE DPM Oct 15, 2018 19:50
--- NOTE | 2018-10-15 20:22 | NUR ---
RN paged Dr. Mcguire at 1330 regarding silver nitrate stick and he verbalized that it was applied by him. He will give order for topical use. At 14:15, RN notified Dr. Ayush Gill about large amount of serous drainage from the Left Hip incision. Mepilex border Ag and linen were soaking wet as reported by KASSANDRA Dawn. Mepilex re-applied last night. Dr. Gill in at 14:30, N. Maintenance Porter Kellie assisted Dr. Gill for dressing change with multiple 4X4 gauge and Tegaderm applied. May change to Mepilex Ag when no drainage noted. Endorsed to power and recovery shift engineer RN about dressing order. Re: Pt's own med, Zytiga 250 mg x 4 per dose. Please call pharmacy every morning for it and pt takes 4 tablets in whole, chew them and drink with water. Do not crash meds for staff safety. First dose was co-signed by Educator Megan brar and per of pt, Finn. Please give Zytiga one hour before breakfast or 2 hours after breakfast. Peruvian nozzle cement sprayer helper used to explained about meds and side effects in the morning. [place] 5/325 1 tab given this afternoon after physical therapy. Call-light within reach and bed at the lowest position. Recreational activities offered but pt wants to watch TV.
[2018-10-15] MEDS: CLOTRIMAZOLE 1% 30 GM CR TOP SCH (20:54)
[2018-10-15] MEDS: SENNA TAB PO SCH (20:54)
[2018-10-16 02:00] VITALS: BP 101/56; PULSE 92; RESP 19
--- NOTE | 2018-10-16 06:00 | NUR ---
PT SLEEPS ON OFF DURING THE NIGHT, CONFUSED AT TIMES. ALL MEDS GIVEN. DRESSING ON INCISION WAS SOILED, CHANGED PER ORDER. EXPLAINED TO PATIENT AND ASSESS THE PAIN LEVEL, PT SPEAKING JAPANESE ONLY SO RN USED CLEANER HOUSEKEEPING, HER NAME IS CAROLEE ID # [id number]. TURNED AND REPOSITION Q 2 HOURS. ALL NEEDS ATTENDED. HOURLY ROUNDING MADE. PT IS HIGH FALL RISK . BED ALARM ON.
[2018-10-16] MEDS: LEVOTHYROXINE 125 MCG TAB PO SCH (06:31)
[2018-10-16] MEDS: PANTOPRAZOLE (EC) 40 MG TAB PO SCH (06:31)
[2018-10-16 07:00] VITALS: BP 106/53; PULSE 88; RESP 18
--- NOTE | 2018-10-16 07:30 | NUR ---
ENDORSE TO AM RN TO VERIFY WITH MD REGARDING TO CHEMO MED TIME. HAND OFF COMMUNICATION.
[2018-10-16] MEDS: HYDROmorphONE 1 MG/ML SYG IV PRN ×3 (10:30→17:46)
[2018-10-16] MEDS: MEGESTROL (40 MG/ML) 10ML CUP PO SCH ×2 (11:09→21:22)
[2018-10-16] MEDS: VORICONAZOLE 200 MG TAB PO SCH ×2 (11:10→22:03)
[2018-10-16] MEDS: predniSONE 5 MG TAB PO SCH ×2 (11:11→21:23)
[2018-10-16] MEDS: CLOTRIMAZOLE 1% 30 GM CR TOP SCH ×2 (11:12→21:23)
[2018-10-16] MEDS: ENOXAPARIN 40 MG/0.4 ML SYG SC SCH (11:12)
--- NOTE | 2018-10-16 12:53 | PN ---
Date/Time of Note Date/Time of Note DATE: 10/16/18 TIME: 12:52 Subjective Up for activities this morning Objective Vital Signs Date Temp Pulse Resp B/P (MAP) Pulse Ox O2 O2 Flow FiO2 Time Delivery Rate 10/16/18 97.9 88 18 106/53 94 Room Air 07:00 (70) Intake and Output 10/15/18 10/15/18 10/16/18 1515:00 23:00 07:00 IntakeIntake Total 1200 ml OutputOutput Total 600 ml 301 ml BalanceBalance 600 ml -301 ml Exam pulm-cta max transfer max amb few steps Results/Medications Result Diagram: 10/15/1852 10/15/1852 Medications Current Medications Levothyroxine Sodium (Synthroid) 125 mcg BEFORE BREAKFAST PO Last administered on 10/16/18at 06:31; Admin Dose 125 MCG; Start 10/12/18 at 22:01 Pantoprazole (Protonix Tab) 40 mg DAILY@06 PO Last administered on 10/16/18at 06:31; Admin Dose 40 MG; Start 10/12/18 at 22:01 Ondansetron HCl (Zofran Inj) 4 mg Q6H PRN IV NAUSEA AND/OR VOMITING; Start 10/12/18 at 22:01 Acetaminophen (Tylenol Tab) 650 mg Q6H PRN PO PAIN LEVEL 1-3 OR FEVER Last administered on 10/13/18at 14:44; Admin Dose 650 MG; Start 10/12/18 at 22:01 Hydromorphone HCl (Dilaudid) 1 mg Q3H PRN IV BREAKTHROUGH PAIN Last administered on 10/14/18at 09:15; Admin Dose 1 MG; Start 10/12/18 at 22:01 IV Flush (NS 3 ml) 3 ml per protocol IV ; Start 10/12/18 at 22:01 Enoxaparin Sodium (Lovenox) 40 mg DAILY SC Last administered on 10/16/18at 11:12; Admin Dose 40 MG; Start 10/12/18 at 22:01 Acetaminophen/ Hydrocodone Bitart ([place] (5/325)) 1 tab Q3H PRN PO MODERATE PAIN LEVEL 4-6 Last administered on 10/15/18at 17:59; Admin Dose 1 TAB; Start 10/12/18 at 22:01 Senna (Senokot) 1 tab HS PO Last administered on 10/15/18 20:54; Admin Dose 1 TAB; Start 10/13/18 at 21:00 Lactulose (Enulose) 20 gm DAILY PRN PO CONSTIPATION Last administered on 10/14/18 09:13; Admin Dose 20 GM; Start 10/13/18 at 00:00 Bisacodyl (Dulcolax Supp) 10 mg DAILY PRN [place] CONSTIPATION; Start 10/13/18 at 00:00 Morphine Sulfate (morphine) 6 mg Q4H PRN PO SEVERE PAIN LEVEL 7-10; Start 10/13/18 at 17:00 Megestrol Acetate (Megace Susp) 400 mg BID PO Last administered on 10/16/18 11:09; Admin Dose 400 MG; Start 10/14/18 at 09:00 Prednisone (Prednisone) 5 mg BID PO Last administered on 10/16/18 11:11; Admin Dose 5 MG; Start 10/14/18 at 21:00 Voriconazole (Vfend) 200 mg BID PO Last administered on 10/16/18 11:10; Admin Dose 200 MG; Start 10/15/18 at 11:24 Non-Formulary Medication 4 dose DAILY PO Last administered on 10/16/18 11:10; Admin Dose 4 DOSE; Start 10/15/18 at 12:30 Clotrimazole (Lotrimin Cr) 1 applic BID TOP Last administered on 10/16/18 11:12; Admin Dose 1 APPLIC; Start 10/15/18 at 21:00 Assessment/Plan Additional Assessment/Plan Rehab- Left intertrochanteric hip fracture status post ORIF; Toxic metabolic encephalopathy. Continue activities as tolerated, patient is progressing Heme/Onc- patient receiving his own chemo meds Dysphagia on pureed diet-speech Urinary tract infection. Cirrhosis. Pancytopenia. History of prostate carcinoma. AMANDA KOENIG MD Oct 16, 2018 12:53
[2018-10-16 14:43] VITALS: BP 118/58; PULSE 89; RESP 18
--- NOTE | 2018-10-16 14:49 | CONS ---
Date/Time of Note Date/Time of Note DATE: 10/16/18 TIME: 14:48 Assessment/Plan Assessment/Plan Hospital Course No acute changes, no fevers Antimicrobials: Voriconazole Physical examination: Cachectic well-developed elderly man in no distress. Head atraumatic normocephalic neck is supple chest rise symmetrical breath sounds diminished bases heart: S1-S2 abdomen soft bowel sounds present extremities no cyanosis Assessment: 1. 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 Status post open reduction internal fixation of left hip 10/09/18 4. Cachexia 5. Bilateral lower extremities onychomycosis Plan: Remains stable, continue Vfend for 5 more days Result Diagram: 10/15/1852 10/15/1852 Consultation Date/Type/Reason Admit Date/Time Oct 12, 2018 at 20:00 Initial Consult Date Type of Consult id Requesting Provider: EL[facility]ASSAR [facility], [facility] Exam/Review of Systems Vital Signs Vitals Vital Signs Date Temp Pulse Resp B/P (MAP) Pulse Ox O2 O2 Flow FiO2 Time Delivery Rate 10/16/18 97.7 89 18 118/58 97 Room Air 14:43 (78) Intake and Output 10/15/18 10/15/18 10/16/18 1515:00 23:00 07:00 IntakeIntake Total 1200 ml OutputOutput Total 600 ml 301 ml BalanceBalance 600 ml -301 ml Medications Medications Current Medications Levothyroxine Sodium (Synthroid) 125 mcg BEFORE BREAKFAST PO Last administered on 10/16/18at 06:31; Admin Dose 125 MCG; Start 10/12/18 at 22:01 Pantoprazole (Protonix Tab) 40 mg DAILY@06 PO Last administered on 10/16/18at 06:31; Admin Dose 40 MG; Start 10/12/18 at 22:01 Ondansetron HCl (Zofran Inj) 4 mg Q6H PRN IV NAUSEA AND/OR VOMITING; Start 10/12/18 at 22:01 Acetaminophen (Tylenol Tab) 650 mg Q6H PRN PO PAIN LEVEL 1-3 OR FEVER Last administered on 10/13/18at 14:44; Admin Dose 650 MG; Start 10/12/18 at 22:01 Hydromorphone HCl (Dilaudid) 1 mg Q3H PRN IV BREAKTHROUGH PAIN Last administered on 10/14/18 09:15; Admin Dose 1 MG; Start 10/12/18 at 22:01 IV Flush (NS 3 ml) 3 ml per protocol IV ; Start 10/12/18 at 22:01 Enoxaparin Sodium (Lovenox) 40 mg DAILY SC Last administered on 10/16/18 11:12; Admin Dose 40 MG; Start 10/12/18 at 22:01 Acetaminophen/ Hydrocodone Bitart ([place] (5/325)) 1 tab Q3H PRN PO MODERATE PAIN LEVEL 4-6 Last administered on 10/15/18 17:59; Admin Dose 1 TAB; Start 10/12/18 at 22:01 Senna (Senokot) 1 tab HS PO Last administered on 10/15/18 20:54; Admin Dose 1 TAB; Start 10/13/18 at 21:00 Lactulose (Enulose) 20 gm DAILY PRN PO CONSTIPATION Last administered on 10/14/18 09:13; Admin Dose 20 GM; Start 10/13/18 at 00:00 Bisacodyl (Dulcolax Supp) 10 mg DAILY PRN [place] CONSTIPATION; Start 10/13/18 at 00:00 Morphine Sulfate (morphine) 6 mg Q4H PRN PO SEVERE PAIN LEVEL 7-10; Start 10/13/18 at 17:00 Megestrol Acetate (Megace Susp) 400 mg BID PO Last administered on 10/16/18 11:09; Admin Dose 400 MG; Start 10/14/18 at 09:00 Prednisone (Prednisone) 5 mg BID PO Last administered on 10/16/18 11:11; Admin Dose 5 MG; Start 10/14/18 at 21:00 Voriconazole (Vfend) 200 mg BID PO Last administered on 10/16/18 11:10; Admin Dose 200 MG; Start 10/15/18 at 11:24 Non-Formulary Medication 4 dose DAILY PO Last administered on 10/16/18 11:10; Admin Dose 4 DOSE; Start 10/15/18 at 12:30 Clotrimazole (Lotrimin Cr) 1 applic BID TOP Last administered on 10/16/18 11:12; Admin Dose 1 APPLIC; Start 10/15/18 at 21:00 AMY KWONG NP Oct 16, 2018 14:49
--- NOTE | 2018-10-16 14:51 | PN ---
Date/Time of Note Date/Time of Note DATE: 10/16/18 TIME: 14:49 Objective Vitals Vital Signs Date Temp Pulse Resp B/P (MAP) Pulse Ox O2 O2 Flow FiO2 Time Delivery Rate 10/16/18 97.7 89 18 118/58 97 Room Air 14:43 (78) Intake and Output 10/15/18 10/15/18 10/16/18 1515:00 23:00 07:00 IntakeIntake Total 1200 ml OutputOutput Total 600 ml 301 ml BalanceBalance 600 ml -301 ml Results Result Diagram: 10/15/1852 10/15/1852 Medications Medications Current Medications Levothyroxine Sodium (Synthroid) 125 mcg BEFORE BREAKFAST PO Last administered on 10/16/18 06:31; Admin Dose 125 MCG; Start 10/12/18 at 22:01 Pantoprazole (Protonix Tab) 40 mg DAILY@06 PO Last administered on 10/16/18at 06:31; Admin Dose 40 MG; Start 10/12/18 at 22:01 Ondansetron HCl (Zofran Inj) 4 mg Q6H PRN IV NAUSEA AND/OR VOMITING; Start 10/12/18 at 22:01 Acetaminophen (Tylenol Tab) 650 mg Q6H PRN PO PAIN LEVEL 1-3 OR FEVER Last administered on 10/13/18at 14:44; Admin Dose 650 MG; Start 10/12/18 at 22:01 Hydromorphone HCl (Dilaudid) 1 mg Q3H PRN IV BREAKTHROUGH PAIN Last administered on 10/14/18at 09:15; Admin Dose 1 MG; Start 10/12/18 at 22:01 IV Flush (NS 3 ml) 3 ml per protocol IV ; Start 10/12/18 at 22:01 Enoxaparin Sodium (Lovenox) 40 mg DAILY SC Last administered on 10/16/18at 11:12; Admin Dose 40 MG; Start 10/12/18 at 22:01 Acetaminophen/ Hydrocodone Bitart ([place] (5/325)) 1 tab Q3H PRN PO MODERATE PAIN LEVEL 4-6 Last administered on 10/15/18at 17:59; Admin Dose 1 TAB; Start 10/12/18 at 22:01 Senna (Senokot) 1 tab HS PO Last administered on 10/15/18at 20:54; Admin Dose 1 TAB; Start 10/13/18 at 21:00 Lactulose (Enulose) 20 gm DAILY PRN PO CONSTIPATION Last administered on 10/14/18 09:13; Admin Dose 20 GM; Start 10/13/18 at 00:00 Bisacodyl (Dulcolax Supp) 10 mg DAILY PRN [place] CONSTIPATION; Start 10/13/18 at 00:00 Morphine Sulfate (morphine) 6 mg Q4H PRN PO SEVERE PAIN LEVEL 7-10; Start 10/13/18 at 17:00 Megestrol Acetate (Megace Susp) 400 mg BID PO Last administered on 10/16/18 11:09; Admin Dose 400 MG; Start 10/14/18 at 09:00 Prednisone (Prednisone) 5 mg BID PO Last administered on 10/16/18 11:11; Admin Dose 5 MG; Start 10/14/18 at 21:00 Voriconazole (Vfend) 200 mg BID PO Last administered on 10/16/18 11:10; Admin Dose 200 MG; Start 10/15/18 at 11:24 Non-Formulary Medication 4 dose DAILY PO Last administered on 10/16/18 11:10; Admin Dose 4 DOSE; Start 10/15/18 at 12:30 Clotrimazole (Lotrimin Cr) 1 applic BID TOP Last administered on 10/16/18 11:12; Admin Dose 1 APPLIC; Start 10/15/18 at 21:00 VTE Prophylaxis Risk score (from Ns)>0 risk: 14 SCD applied (from [facility] [place]): No SCD contraindication: other Lines/Catheters IV Catheter Type: Vaughn in Place: No Assessment/Plan Hospital Course Subjective no acute overnight events Objective Physical exam General: Patient is laying in bed and answers questions Mentation: Patient is alert and oriented Head: Normocephalic atraumatic Eyes: EOMI, pupils reactive to light Neck: Supple, nontender, midline Respiratory: Clear to auscultation bilaterally Cardiovascular: regular rate, no obvious murmurs Gastrointestinal: non-tender to palpation, bowel sounds heard. Neurological: Moves all extremities spontaneously Skin: No new skin lesions 78 yo M s/p mechanical fall and hip fracture s/p ORIF admitted to ARU for rehab. Med conditions are as follows: 1. Chronic indwelling Vaughn catheter secondary to #6 -UA noted -infectious disease on board, changed abx to fungal for now 2. Urinary tract infection on treatment -fungal infection per ID so far. 3. Pancytopenia / #4? r/o iron deficiency -No indication for transfusion at this time 4. Chronic liver cirrhosis status post TIPS 5. Coagulopathy and hypoalbuminemia likely secondary to #4 6. History of prostate cancer with bladder invasion and history of bladder resection and CT evidence of left bladder wall mass with involvement of left UVJ and irregular borders on prostate glands -Spoke to patient's most recent oncologist, Dr. Freddy Sanchez, and oncologist who works out of [facility], according to him he saw the patient in the inpatient setting at [facility] approximately 1 month ago and was supposed to follow-up in the outpatient setting however patient and patient's family stated that they would get somewhat closer to their home. Patient is to be on Zytiga on a daily basis no matter what and the prednisone is an adjuvant for the Zytiga hormonal-based chemotherapy. We will continue current meds. -Patient will need to follow-up with an oncologist as soon as he leaves the rehab unit 7. 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 Recent hip fracture status post mechanical fall status post ORIF 10/09/18 -in rehab 9. Evidence of right hepatic surgery (TIPS?) on CT -monitor MANFRED WHITE Oct 16, 2018 14:51
--- NOTE | 2018-10-16 18:00 | NUR ---
Nursing Notes: patient seen by Dr. Isac Dorado, can change the Chemo Medication Tablet time from 0900H to 0600H as per patient's request, patient with Vaughn Catheter, dark reuben output noted, Dr. Dorado aware. All Laboratory results seen by Dr. Dorado.
[2018-10-16 20:08] VITALS: BP 118/56; PULSE 92; RESP 18
[2018-10-16] MEDS: SENNA TAB PO SCH (21:23)
[2018-10-17 02:00] VITALS: BP_SYST 114; BP_DIAS 6; BP_DIAS 62; PULSE 87; RESP 18
--- NOTE | 2018-10-17 06:24 | NUR ---
Slept well. Resp unlabored. Vaughn cath intact draining to dark reuben urine. Needs attended. Kept comfortable. Call light within reached, bed alarm is activated. No acute distress noted.
[2018-10-17] MEDS: PANTOPRAZOLE (EC) 40 MG TAB PO SCH (06:47)
[2018-10-17] MEDS: LEVOTHYROXINE 125 MCG TAB PO SCH (06:47)
[2018-10-17] MEDS: [UNRECOGNIZED DRUG - REMARK] PO SCH (06:51)
[2018-10-17 07:30] VITALS: BP 146/53; PULSE 86; RESP 18
[2018-10-17] MEDS: ACETAMINOPHEN 325 MG TAB PO PRN (08:57)
[2018-10-17] MEDS: VORICONAZOLE 200 MG TAB PO SCH ×2 (08:57→21:58)
[2018-10-17] MEDS: CLOTRIMAZOLE 1% 30 GM CR TOP SCH ×2 (08:57→21:58)
[2018-10-17] MEDS: MEGESTROL (40 MG/ML) 10ML CUP PO SCH ×2 (08:57→21:58)
[2018-10-17] MEDS: predniSONE 5 MG TAB PO SCH ×2 (10:23→21:58)
[2018-10-17] MEDS: ENOXAPARIN 40 MG/0.4 ML SYG SC SCH (10:24)
[2018-10-17] MEDS: MULTIVITAMINS THERAPEUTIC TAB PO SCH (11:30)
--- NOTE | 2018-10-17 12:26 | CONS ---
Date/Time of Note Date/Time of Note DATE: 10/17/18 TIME: 12:20 Consult Date/Type/Reason Admit Date/Time Oct 12, 2018 at 20:00 Initial Consult Date 10/15/18 Type of Consultation: Urology Reason for Consultation Prostate cancer Requesting Provider: ELADIA NASSAR MD, [facility] Subjective Patient is weak, his is at his bedside. He does not eat much and he has lost weight. Objective Vital Signs Date Temp Pulse Resp B/P (MAP) Pulse Ox O2 O2 Flow FiO2 Time Delivery Rate 10/17/18 97.8 87 18 114/6 (42) 95 Room Air 02:00 Intake and Output 10/16/18 10/16/18 10/17/18 1515:00 23:00 07:00 IntakeIntake Total 200 ml 800 ml 1300 ml OutputOutput Total 600 ml 510 ml BalanceBalance -400 ml 290 ml 1300 ml Exam The Vaughn catheter is draining well the urine is dark orange because of the Pyridium he is on. Results/Medications Result Diagram: 10/15/18 0652 10/15/18 0652 Medications Current Medications Levothyroxine Sodium (Synthroid) 125 mcg BEFORE BREAKFAST PO Last administered on 10/17/18at 06:47; Admin Dose 125 MCG; Start 10/12/18 at 22:01 Pantoprazole (Protonix Tab) 40 mg DAILY@06 PO Last administered on 10/17/18at 06:47; Admin Dose 40 MG; Start 10/12/18 at 22:01 Ondansetron HCl (Zofran Inj) 4 mg Q6H PRN IV NAUSEA AND/OR VOMITING; Start 10/12/18 at 22:01 Acetaminophen (Tylenol Tab) 650 mg Q6H PRN PO PAIN LEVEL 1-3 OR FEVER Last administered on 10/17/18at 08:57; Admin Dose 650 MG; Start 10/12/18 at 22:01 Hydromorphone HCl (Dilaudid) 1 mg Q3H PRN IV BREAKTHROUGH PAIN Last administered on 10/16/18at 10:30; Admin Dose 1 MG; Start 10/12/18 at 22:01 IV Flush (NS 3 ml) 3 ml per protocol IV ; Start 10/12/18 at 22:01 Enoxaparin Sodium (Lovenox) 40 mg DAILY SC Last administered on 10/17/18 10:24; Admin Dose 40 MG; Start 10/12/18 at 22:01 Acetaminophen/ Hydrocodone Bitart ([place] (5/325)) 1 tab Q3H PRN PO MODERATE PAIN LEVEL 4-6 Last administered on 10/15/18 17:59; Admin Dose 1 TAB; Start 10/12/18 at 22:01 Senna (Senokot) 1 tab HS PO Last administered on 10/16/18 21:23; Admin Dose 1 TAB; Start 10/13/18 at 21:00 Lactulose (Enulose) 20 gm DAILY PRN PO CONSTIPATION Last administered on 10/14/18 09:13; Admin Dose 20 GM; Start 10/13/18 at 00:00 Bisacodyl (Dulcolax Supp) 10 mg DAILY PRN [place] CONSTIPATION; Start 10/13/18 at 00:00 Morphine Sulfate (morphine) 6 mg Q4H PRN PO SEVERE PAIN LEVEL 7-10; Start 10/13/18 at 17:00 Megestrol Acetate (Megace Susp) 400 mg BID PO Last administered on 10/17/18 08:57; Admin Dose 400 MG; Start 10/14/18 at 09:00 Prednisone (Prednisone) 5 mg BID PO Last administered on 10/17/18 10:23; Admin Dose 5 MG; Start 10/14/18 at 21:00 Voriconazole (Vfend) 200 mg BID PO Last administered on 10/17/18 08:57; Admin Dose 200 MG; Start 10/15/18 at 11:24 Clotrimazole (Lotrimin Cr) 1 applic BID TOP Last administered on 10/17/18 08:57; Admin Dose 1 APPLIC; Start 10/15/18 at 21:00 Non-Formulary Medication 1 DOSE = 1000mg = 4 X 25... DAILY@0600 PO Last administered on 10/17/18 06:51; Admin Dose 4 DOSE; Start 10/17/18 at 06:00 Multivitamins Therapeutic (Theragran) 1 tab DAILY PO Last administered on 10/17/18 11:30; Admin Dose 1 TAB; Start 10/17/18 at 11:30 Assessment/Plan Chief Complaint/Hosp Course 78-year-old male who is known to have a history of prostate cancer on chemot herapy presented to the emergency room after a fall and was found to have a left hip fracture. He underwent open reduction internal fixation of the fracture and when he was stable he was transferred to the rehab unit for further care a urological consultation was requested because of the history of prostate cancer. The patient has cancer of the prostate with a [place] score 10 out of 10 and the cancer is invading into the bladder and causing also obstruction on the left ureter. Patient has been on abiraterone acetate 250 mg 4 tablets daily also on prednisone 5 mg 2 tablets twice a day. He does have an indwelling Vaughn catheter that is draining dark orange urine because of the Pyridium he is on. The patient appears to be comfortable but he is very weak and is not eating much and has lost weight.As far as his prostate cancer he is on the medications which are continued here and has an indwelling Vaughn catheter that is draining well. He has yeast in his urine and is being treated for it. KRISTIN LINARES MD Oct 17, 2018 12:25
--- NOTE | 2018-10-17 12:42 | PN ---
Date/Time of Note Date/Time of Note DATE: 10/17/18 TIME: 12:41 Objective Vitals Vital Signs Date Temp Pulse Resp B/P (MAP) Pulse Ox O2 O2 Flow FiO2 Time Delivery Rate 10/17/18 97.8 87 18 114/6 (42) 95 Room Air 02:00 Intake and Output 10/16/18 10/16/18 10/17/18 1515:00 23:00 07:00 IntakeIntake Total 200 ml 800 ml 1300 ml OutputOutput Total 600 ml 510 ml BalanceBalance -400 ml 290 ml 1300 ml Results Result Diagram: 10/15/1852 10/15/1852 Medications Medications Current Medications Levothyroxine Sodium (Synthroid) 125 mcg BEFORE BREAKFAST PO Last administered on 10/17/18 06:47; Admin Dose 125 MCG; Start 10/12/18 at 22:01 Pantoprazole (Protonix Tab) 40 mg DAILY@06 PO Last administered on 10/17/18 06:47; Admin Dose 40 MG; Start 10/12/18 at 22:01 Ondansetron HCl (Zofran Inj) 4 mg Q6H PRN IV NAUSEA AND/OR VOMITING; Start 10/12/18 at 22:01 Acetaminophen (Tylenol Tab) 650 mg Q6H PRN PO PAIN LEVEL 1-3 OR FEVER Last administered on 10/17/18 08:57; Admin Dose 650 MG; Start 10/12/18 at 22:01 Hydromorphone HCl (Dilaudid) 1 mg Q3H PRN IV BREAKTHROUGH PAIN Last administered on 10/16/18 10:30; Admin Dose 1 MG; Start 10/12/18 at 22:01 IV Flush (NS 3 ml) 3 ml per protocol IV ; Start 10/12/18 at 22:01 Enoxaparin Sodium (Lovenox) 40 mg DAILY SC Last administered on 10/17/18 10:24; Admin Dose 40 MG; Start 10/12/18 at 22:01 Acetaminophen/ Hydrocodone Bitart ([place] (5/325)) 1 tab Q3H PRN PO MODERATE PAIN LEVEL 4-6 Last administered on 10/15/18 17:59; Admin Dose 1 TAB; Start 10/12/18 at 22:01 Senna (Senokot) 1 tab HS PO Last administered on 1/18/19at 21:23; Admin Dose 1 TAB; Start 10/13/18 at 21:00 Lactulose (Enulose) 20 gm DAILY PRN PO CONSTIPATION Last administered on 10/14/18at 09:13; Admin Dose 20 GM; Start 10/13/18 at 00:00 Bisacodyl (Dulcolax Supp) 10 mg DAILY PRN [place] CONSTIPATION; Start 10/13/18 at 00:00 Morphine Sulfate (morphine) 6 mg Q4H PRN PO SEVERE PAIN LEVEL 7-10; Start 10/13/18 at 17:00 Megestrol Acetate (Megace Susp) 400 mg BID PO Last administered on 10/17/18 08:57; Admin Dose 400 MG; Start 10/14/18 at 09:00 Prednisone (Prednisone) 5 mg BID PO Last administered on 10/17/18 10:23; Admin Dose 5 MG; Start 10/14/18 at 21:00 Voriconazole (Vfend) 200 mg BID PO Last administered on 10/17/18 08:57; Admin Dose 200 MG; Start 10/15/18 at 11:24 Clotrimazole (Lotrimin Cr) 1 applic BID TOP Last administered on 10/17/18 08:57; Admin Dose 1 APPLIC; Start 10/15/18 at 21:00 Non-Formulary Medication 1 DOSE = 1000mg = 4 X 25... DAILY@0600 PO Last administered on 10/17/18 06:51; Admin Dose 4 DOSE; Start 10/17/18 at 06:00 Multivitamins Therapeutic (Theragran) 1 tab DAILY PO Last administered on 10/17/18at 11:30; Admin Dose 1 TAB; Start 10/17/18 at 11:30 VTE Prophylaxis Risk score (from Nsg)>0 risk: 14 SCD applied (from Ns): No SCD contraindication: other Lines/Catheters IV Catheter Type: Vaughn in Place: No Assessment/Plan Hospital Course Subjective no acute overnight events Objective Physical exam General: Patient is laying in bed and answers questions Mentation: Patient is alert and oriented Head: Normocephalic atraumatic Eyes: EOMI, pupils reactive to light Neck: Supple, nontender, midline Respiratory: Clear to auscultation bilaterally Cardiovascular: regular rate, no obvious murmurs Gastrointestinal: non-tender to palpation, bowel sounds heard. Neurological: Moves all extremities spontaneously Skin: No new skin lesions 78 yo M s/p mechanical fall and hip fracture s/p ORIF admitted to ARU for rehab. Med conditions are as follows: 1. Chronic indwelling Vaughn catheter secondary to #6 -UA noted -infectious disease on board, changed abx to fungal for now 2. Urinary tract infection on treatment -fungal infection per ID so far. 3. Pancytopenia / #4? r/o iron deficiency -No indication for transfusion at this time 4. Chronic liver cirrhosis status post TIPS 5. Coagulopathy and hypoalbuminemia likely secondary to #4 6. History of prostate cancer with bladder invasion and history of bladder resection and CT evidence of left bladder wall mass with involvement of left UVJ and irregular borders on prostate glands -Spoke to patient's most recent oncologist, Dr. Freddy Sanchez, and oncologist who works out of [facility], according to him he saw the patient in the inpatient setting at [facility] approximately 1 month ago and was supposed to follow-up in the outpatient setting however patient and patient's family stated that they would get somewhat closer to their home. Patient is to be on Zytiga on a daily basis no matter what and the prednisone is an adjuvant for the Zytiga hormonal-based chemotherapy. We will continue current meds. -Patient will need to follow-up with an oncologist as soon as he leaves the rehab unit 7. 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 Recent hip fracture status post mechanical fall status post ORIF 10/09/18 -in rehab 9. Evidence of right hepatic surgery (TIPS?) on CT -monitor 10. toe fungal infection -seen by podiatry MANFRED WHITE Oct 17, 2018 12:42
[2018-10-17 14:00] VITALS: BP 120/58; PULSE 93; RESP 18
--- NOTE | 2018-10-17 18:50 | NUR ---
Pt in no acute distress. Participated in therapies with rest periods. at bedside for most of the day. Multivitamin po ordered by Dr. Dorado at 's request. Left hip dressing changed with moderate serous drainage. Continue meticulous skin care.
[2018-10-17 19:55] VITALS: BP 122/59; PULSE 91; RESP 18
[2018-10-17] MEDS: SENNA TAB PO SCH (21:58)
--- NOTE | 2018-10-18 00:49 | NUR ---
TAMIKOC RN Weekly Summary Dates From: 10/12/18 to 10/18/18 Patient Name: JEFFREY DUPONT MR#: [id number] Height: 5 ft 8 in Weight: 165 lbs 5.547 oz 75.000 kg Reason for Visit: LEFT HIP FRACTURE Precautions: Fall. Pressure Ulcer Date: 10/18/18 Time: 0049 User: SALVATORE NICHOLS Short-term Goals: 1. No fall, no injury 2. Will have regular pattern of bowel 3. Voids without assisted device 4. Pain will be well controlled 5. Patient's progress: Fair Short-term goals not met and reason/barriers: ongoing Bladder - level of function and accidents: 1, F/C Bowel - level of function and accidents: 1, 3 accidents Skin: non-intact Status: Left hip incision with shae Treatment: dressing as per ordered Changes: Pain: Yes Level: 6-8/10 Location: Left Hip Management: dilaudid prn Changes: No Functional levels: Self Care: 1 Transfers: 1 Locomotion: 1 Assistance requirements: Communication: 2 Social Cognition: 2 Safety awareness: No, has bed alarm on for safety precaution Interdisciplinary interactions: . PT. OT. ST. SOSA RN Patient education: Yes, q.shift and prn on medication, use of call light, safety, and more as documented Discharge needs: Ongoing Comorbid conditions: 1. Toxic metabolic encephalopathy. 2. Dysphagia on pureed diet. 3. Urinary tract infection. 4. Cirrhosis. 5. Hypokalemia. 6. Pancytopenia. 7. History of prostate carcinoma. 8. Impairments in self-care, mobility and cognition. Plan of Care continuation: Yes, continue current POC
[2018-10-18 02:00] VITALS: BP 117/60; PULSE 84; RESP 18
--- NOTE | 2018-10-18 05:36 | NUR ---
Pt asleep, no s/s of acute distress. Denies pain during the shift. Due meds given. Needs attended to. Frequent checks done. Safety precautions in place. Kept clean and comfortable. Encouraged to call for help whenever necessary. Will endorse accordingly.
[2018-10-18] MEDS: [UNRECOGNIZED DRUG - REMARK] PO SCH (06:43)
[2018-10-18] MEDS: LEVOTHYROXINE 125 MCG TAB PO SCH (06:45)
[2018-10-18] MEDS: PANTOPRAZOLE (EC) 40 MG TAB PO SCH (06:45)
[2018-10-18 07:00] VITALS: BP 112/59; PULSE 79; RESP 18
--- NOTE | 2018-10-18 08:56 | PN ---
Date/Time of Note Date/Time of Note DATE: 10/18/18 TIME: 08:55 Subjective Resting Objective Vital Signs Date Temp Pulse Resp B/P (MAP) Pulse Ox O2 O2 Flow FiO2 Time Delivery Rate 10/18/18 98.0 84 18 117/60 93 Room Air 02:00 (79) Intake and Output 10/17/18 10/17/18 10/18/18 1414:59 22:59 06:59 IntakeIntake Total 500 ml 760 ml OutputOutput Total 330 ml 250 ml BalanceBalance 500 ml 430 ml -250 ml Exam pulm-cta max transfers Results/Medications Result Diagram: 10/15/18 0652 10/15/18 0652 Medications Current Medications Levothyroxine Sodium (Synthroid) 125 mcg BEFORE BREAKFAST PO Last administered on 10/18/18at 06:45; Admin Dose 125 MCG; Start 10/12/18 at 22:01 Pantoprazole (Protonix Tab) 40 mg DAILY@06 PO Last administered on 10/18/18at 06:45; Admin Dose 40 MG; Start 10/12/18 at 22:01 Ondansetron HCl (Zofran Inj) 4 mg Q6H PRN IV NAUSEA AND/OR VOMITING; Start 10/12/18 at 22:01 Acetaminophen (Tylenol Tab) 650 mg Q6H PRN PO PAIN LEVEL 1-3 OR FEVER Last administered on 10/17/18at 08:57; Admin Dose 650 MG; Start 10/12/18 at 22:01 Hydromorphone HCl (Dilaudid) 1 mg Q3H PRN IV BREAKTHROUGH PAIN Last administered on 10/16/18at 10:30; Admin Dose 1 MG; Start 10/12/18 at 22:01 IV Flush (NS 3 ml) 3 ml per protocol IV ; Start 10/12/18 at 22:01 Enoxaparin Sodium (Lovenox) 40 mg DAILY SC Last administered on 10/17/18at 10:24; Admin Dose 40 MG; Start 10/12/18 at 22:01 Acetaminophen/ Hydrocodone Bitart ([place] (5/325)) 1 tab Q3H PRN PO MODERATE PAIN LEVEL 4-6 Last administered on 10/15/18at 17:59; Admin Dose 1 TAB; Start 10/12/18 at 22:01 Senna (Senokot) 1 tab HS PO Last administered on 10/17/18 21:58; Admin Dose 1 TAB; Start 10/13/18 at 21:00 Lactulose (Enulose) 20 gm DAILY PRN PO CONSTIPATION Last administered on 10/14/18 09:13; Admin Dose 20 GM; Start 10/13/18 at 00:00 Bisacodyl (Dulcolax Supp) 10 mg DAILY PRN [place] CONSTIPATION; Start 10/13/18 at 00:00 Morphine Sulfate (morphine) 6 mg Q4H PRN PO SEVERE PAIN LEVEL 7-10; Start 10/13/18 at 17:00 Megestrol Acetate (Megace Susp) 400 mg BID PO Last administered on 10/17/18 21:58; Admin Dose 400 MG; Start 10/14/18 at 09:00 Prednisone (Prednisone) 5 mg BID PO Last administered on 10/17/18 21:58; Admin Dose 5 MG; Start 10/14/18 at 21:00 Voriconazole (Vfend) 200 mg BID PO Last administered on 10/17/18 21:58; Admin Dose 200 MG; Start 10/15/18 at 11:24 Clotrimazole (Lotrimin Cr) 1 applic BID TOP Last administered on 10/17/18 21:58; Admin Dose 1 APPLIC; Start 10/15/18 at 21:00 Non-Formulary Medication 1 DOSE = 1000mg = 4 X 25... DAILY@0600 PO Last administered on 10/18/18 06:43; Admin Dose 1 DOSE; Start 10/17/18 at 06:00 Multivitamins Therapeutic (Theragran) 1 tab DAILY PO Last administered on 10/17/18 11:30; Admin Dose 1 TAB; Start 10/17/18 at 11:30 Assessment/Plan Additional Assessment/Plan Rehab- Left intertrochanteric hip fracture status post ORIF; Toxic metabolic encephalopathy. Continue activities as tolerated - Prostate Ca-chemo; UTI; appreciate Dr. Collins input Heme/Onc- patient receiving his own chemo meds Dysphagia on pureed diet-speech Cirrhosis. Pancytopenia. AMANDA KOENIG MD Oct 18, 2018 08:56
[2018-10-18] MEDS: CLOTRIMAZOLE 1% 30 GM CR TOP SCH ×2 (09:24→20:57)
[2018-10-18] MEDS: MULTIVITAMINS THERAPEUTIC TAB PO SCH (09:25)
[2018-10-18] MEDS: VORICONAZOLE 200 MG TAB PO SCH ×2 (09:25→20:57)
[2018-10-18] MEDS: HYDROCODONE/APAP (5/325) TAB PO PRN ×3 (09:25→22:11)
[2018-10-18] MEDS: predniSONE 5 MG TAB PO SCH ×2 (09:25→20:57)
[2018-10-18] MEDS: MEGESTROL (40 MG/ML) 10ML CUP PO SCH ×2 (09:26→20:56)
[2018-10-18] MEDS: ENOXAPARIN 40 MG/0.4 ML SYG SC SCH (09:26)
[2018-10-18 14:00] VITALS: BP 129/58; PULSE 85; RESP 18
--- NOTE | 2018-10-18 18:15 | NUR ---
Patient lying in bed in no acute distress. AM meds taken, and medicated for pain twice today. Dressing to left hip done due to saturated dressing. No s/sx of infection noted, shae intact, wound well approximated. He had food from home for lunch, but refused dinner. Boost ordered and encouraged. Call light in reach, bed alarm on.
[2018-10-18 20:33] VITALS: BP 119/62; PULSE 92; RESP 18
[2018-10-18] MEDS: SENNA TAB PO SCH (20:56)
[2018-10-19] VITALS (9 sets, daily range): BP systolic 99–126; BP diastolic 54–72; PULSE 76–103; RESP 18–20
[2018-10-19] MEDS: HYDROCODONE/APAP (5/325) TAB PO PRN (05:22)
[2018-10-19] MEDS: PANTOPRAZOLE (EC) 40 MG TAB PO SCH (05:23)
[2018-10-19] MEDS: [UNRECOGNIZED DRUG - REMARK] PO SCH (05:27)
[2018-10-19] MEDS: LEVOTHYROXINE 125 MCG TAB PO SCH (05:29)
--- NOTE | 2018-10-19 05:56 | NUR ---
PATIENT SLEPT WELL. LT HIP DRESSING CHANGED X 1. MEDICATED WITH NORCO 1 TAB PO FOR PAIN WITH RELIEF. RECREATIONAL ACTIVITIES PROVIDED TO PATIENT;TV, CALL LIGHT WITHIN REACH
[2018-10-19] MEDS: MULTIVITAMINS THERAPEUTIC TAB PO SCH (09:00)
[2018-10-19] MEDS: CLOTRIMAZOLE 1% 30 GM CR TOP SCH ×2 (09:00→20:30)
[2018-10-19] MEDS: predniSONE 5 MG TAB PO SCH ×2 (09:00→20:31)
[2018-10-19] MEDS: VORICONAZOLE 200 MG TAB PO SCH ×2 (09:00→20:31)
[2018-10-19] MEDS: MEGESTROL (40 MG/ML) 10ML CUP PO SCH ×2 (09:00→20:31)
[2018-10-19] MEDS: HYDROmorphONE 1 MG/ML SYG IV PRN ×2 (09:06→18:02)
--- NOTE | 2018-10-19 13:33 | PN ---
Date/Time of Note Date/Time of Note DATE: 10/19/18 TIME: 13:27 Objective Vital Signs Date Temp Pulse Resp B/P (MAP) Pulse Ox O2 O2 Flow FiO2 Time Delivery Rate 10/19/18 78 18 119/69 96 Room Air 12:14 (86) 10/19/18 98.2 11:45 Intake and Output 10/18/18 10/18/18 10/19/18 1515:00 23:00 07:00 IntakeIntake Total 1200 ml 240 ml OutputOutput Total 600 ml BalanceBalance 600 ml 240 ml Exam Physical Exam: Pulm-cta Hip- bandage with e/o drainage. Above hip in flank region warmth, red, swelling BOWEL- Cont BLADDER-Cont/incont SKIN- intact OT- DRESSING- mod BATHING-mod TOILETING-mod PT- BED MOBILITY-max TRANSFERS-max AMBULATION-max 3 feet WHEELCHAIR MOBILITY- max 30 feet A/P- Interdisciplinary team conference held today. Please see interdisciplinary sheet. Working toward d.c. on 10/28 with post discharge follow up of physical therapy, occupational therapy, Rn if stable. The erythema on flank is concerning for possible infection/bleeding. Will ask Dr. Gill for follow up. Results/Medications Result Diagram: 10/19/18 1202 10/15/18 0652 Results 24 hrs Laboratory Tests Test 10/19/18 12:02 White Blood Count 8.0 # Red Blood Count 2.69 L Hemoglobin 9.1 L Hematocrit 29.7 L Mean Corpuscular Volume 110.4 H Mean Corpuscular Hemoglobin 33.8 H Mean Corpuscular Hemoglobin Concent 30.6 L Red Cell Distribution Width 24.1 H Platelet Count 89 #L Mean Platelet Volume 10.3 Immature Granulocytes % 0.500 H Neutrophils % 68.2 Lymphocytes % 23.2 Monocytes % 6.7 Eosinophils % 1.3 Basophils % 0.1 Nucleated Red Blood Cells % 0.0 Immature Granulocytes # 0.040 H Neutrophils # 5.4 Lymphocytes # 1.9 Monocytes # 0.5 Eosinophils # 0.1 Basophils # 0.0 Nucleated Red Blood Cells # 0.0 Medications Current Medications Levothyroxine Sodium (Synthroid) 125 mcg BEFORE BREAKFAST PO Last administered on 10/19/18at 05:29; Admin Dose 125 MCG; Start 10/12/18 at 22:01 Pantoprazole (Protonix Tab) 40 mg DAILY@06 PO Last administered on 10/19/18 05:23; Admin Dose 40 MG; Start 10/12/18 at 22:01 Ondansetron HCl (Zofran Inj) 4 mg Q6H PRN IV NAUSEA AND/OR VOMITING; Start 10/12/18 at 22:01 Acetaminophen (Tylenol Tab) 650 mg Q6H PRN PO PAIN LEVEL 1-3 OR FEVER Last administered on 10/17/18 08:57; Admin Dose 650 MG; Start 10/12/18 at 22:01 Hydromorphone HCl (Dilaudid) 1 mg Q3H PRN IV BREAKTHROUGH PAIN Last administered on 10/19/18 09:06; Admin Dose 1 MG; Start 10/12/18 at 22:01 IV Flush (NS 3 ml) 3 ml per protocol IV ; Start 10/12/18 at 22:01 Enoxaparin Sodium (Lovenox) 40 mg DAILY SC Last administered on 10/18/18 09:26; Admin Dose 40 MG; Start 10/12/18 at 22:01 Acetaminophen/ Hydrocodone Bitart ([place] (5/325)) 1 tab Q3H PRN PO MODERATE PAIN LEVEL 4-6 Last administered on 10/19/18 05:22; Admin Dose 1 TAB; Start 10/12/18 at 22:01 Senna (Senokot) 1 tab HS PO Last administered on 10/18/18 20:56; Admin Dose 1 TAB; Start 10/13/18 at 21:00 Lactulose (Enulose) 20 gm DAILY PRN PO CONSTIPATION Last administered on 10/14/18 09:13; Admin Dose 20 GM; Start 10/13/18 at 00:00 Bisacodyl (Dulcolax Supp) 10 mg DAILY PRN [place] CONSTIPATION; Start 10/13/18 at 00:00 Morphine Sulfate (morphine) 6 mg Q4H PRN PO SEVERE PAIN LEVEL 7-10; Start 10/13/18 at 17:00 Megestrol Acetate (Megace Susp) 400 mg BID PO Last administered on 10/18/18 20:56; Admin Dose 400 MG; Start 10/14/18 at 09:00 Prednisone (Prednisone) 5 mg BID PO Last administered on 10/18/18 20:57; Admin Dose 5 MG; Start 10/14/18 at 21:00 Voriconazole (Vfend) 200 mg BID PO Last administered on 10/18/18at 20:57; Admin Dose 200 MG; Start 10/15/18 at 11:24 Clotrimazole (Lotrimin Cr) 1 applic BID TOP Last administered on 10/18/18at 20:57; Admin Dose 1 APPLIC; Start 10/15/18 at 21:00 Non-Formulary Medication 1 DOSE = 1000mg = 4 X 25... DAILY@0600 PO Last administered on 10/19/18at 05:27; Admin Dose 1 DOSE; Start 10/17/18 at 06:00 Multivitamins Therapeutic (Theragran) 1 tab DAILY PO Last administered on 10/18/18at 09:25; Admin Dose 1 TAB; Start 10/17/18 at 11:30 AMANDA KOENIG MD Oct 19, 2018 13:33
--- NOTE | 2018-10-19 13:39 | NUR ---
Nursing Notes: RN notified Dr. Gill regarding patient left hip ( flank ) noted with redness besides the incision and above the incision, Dr. Irizarry seen patient left flank and with orders. Dr. Gill will come today to see patient and CBC results seen by patient. KASSANDRA Hopkins ( Activities Aide Mgr. ) notifed Dr. Rowe regarding patient condition.
--- NOTE | 2018-10-19 15:42 | NUR ---
[facility] PT Weekly Summary Dates From: 10/13/18 to 10/19/18 Patient Name: JEFFREY DUPONT MR#: [id number] Height: 5 ft 8 in Weight: 165 lbs 5.547 oz 75.000 kg Reason for Visit: LEFT HIP FRACTURE Precautions: [place]an-speaking, dec hearing, confused, LLE WBAT, ABD Bind/CATIA Hose when OOB per Dr. Irizarry, monitor VS, fall risk, 2PA for safety Date: 10/19/18 Time: 1542 User: MICHELLE LORD Short-term Goals: Mod A bed mobility Max A with transfers with FWW Max A with gait with FWW x 10 ft Min/mod A w/c mobility x 25 ft Pt making very conservative progress during his stay at [facility]. Pt currently demonstrates mod assist for rolling, max assist for bed mobility, max assist for transfers, max assist for WC mobility 30ft x2 reps, Max A for gait using // bars 3ft. Pt required 2PA for safety. Barriers: dec hearing, confused, pain, lethargy, forgetful, forgetfulness, unable to retain information, poor carryover of learning, poor sequencing, poor problem solving. Recommend: HHPT, 24hr assistance, commode. Cont POC and progress as tolerated
--- NOTE | 2018-10-19 15:44 | PN ---
Date/Time of Note Date/Time of Note DATE: 10/19/18 TIME: 15:43 Assessment/Plan VTE Prophylaxis Risk score (from Nsg)>0 risk: 12 SCD applied (from Nsg): Yes Pharmacological prophylaxis: heparin Lines/Catheters IV Catheter Type (from Nrsg): Saline Lock Urinary Cath still in place: Yes Reason Cath still needed: urinary retention Assessment/Plan Hospital Course 78 yo M s/p mechanical fall and hip fracture s/p ORIF admitted to ARU for rehab. Med conditions are as follows: 1. Chronic indwelling Vaughn catheter secondary to #6 -UA noted -infectious disease on board, changed abx to fungal for now 2. Urinary tract infection on treatment -fungal infection per ID so far. 3. Pancytopenia 10/31 #4? r/o iron deficiency -No indication for transfusion at this time 4. Chronic liver cirrhosis status post TIPS 5. Coagulopathy and hypoalbuminemia likely secondary to #4 6. History of prostate cancer with bladder invasion and history of bladder res ection and CT evidence of left bladder wall mass with involvement of left UVJ and irregular borders on prostate glands -Spoke to patient's most recent oncologist, Dr. Freddy Sanchez, and oncologist who works out of [facility], according to him he saw the patient in the inpatient setting at [facility] approximately 1 month ago and was supposed to follow-up in the outpatient setting however patient and patient's family stated that they would get somewhat closer to their home. Patient is to be on Zytiga on a daily basis no matter what and the prednisone is an adjuvant for the Zytiga hormonal-based chemotherapy. We will continue current meds. -Patient will need to follow-up with an oncologist as soon as he leaves the rehab unit 7. 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 Recent hip fracture status post mechanical fall status post ORIF 10/09/18 -in rehab 9. Evidence of right hepatic surgery (TIPS?) on CT -monitor 10. toe fungal infection -seen by podiatry Result Diagram: 10/19/18 1202 10/15/18 0652 Results 24hrs Laboratory Tests Test 10/19/18 12:02 White Blood Count 8.0 # Red Blood Count 2.69 L Hemoglobin 9.1 L Hematocrit 29.7 L Mean Corpuscular Volume 110.4 H Mean Corpuscular Hemoglobin 33.8 H Mean Corpuscular Hemoglobin Concent 30.6 L Red Cell Distribution Width 24.1 H Platelet Count 89 #L Mean Platelet Volume 10.3 Immature Granulocytes % 0.500 H Neutrophils % 68.2 Lymphocytes % 23.2 Monocytes % 6.7 Eosinophils % 1.3 Basophils % 0.1 Nucleated Red Blood Cells % 0.0 Immature Granulocytes # 0.040 H Neutrophils # 5.4 Lymphocytes # 1.9 Monocytes # 0.5 Eosinophils # 0.1 Basophils # 0.0 Nucleated Red Blood Cells # 0.0 Subjective 24 Hr Interval Summary Free Text/Dictation Has developed some ecchymosis to L hip but H/H is stable Exam/Review of Systems Vital Signs Vitals Vital Signs Date Temp Pulse Resp B/P (MAP) Pulse Ox O2 O2 Flow FiO2 Time Delivery Rate 10/19/18 78 18 119/69 96 Room Air 12:14 (86) 10/19/18 98.2 11:45 Intake and Output 10/18/18 10/18/18 10/19/18 1515:00 23:00 07:00 IntakeIntake Total 1200 ml 240 ml OutputOutput Total 600 ml BalanceBalance 600 ml 240 ml Medications Medications Current Medications Levothyroxine Sodium (Synthroid) 125 mcg BEFORE BREAKFAST PO Last administered on 10/19/18at 05:29; Admin Dose 125 MCG; Start 10/12/18 at 22:01 Pantoprazole (Protonix Tab) 40 mg DAILY@06 PO Last administered on 10/19/18at 05:23; Admin Dose 40 MG; Start 10/12/18 at 22:01 Ondansetron HCl (Zofran Inj) 4 mg Q6H PRN IV NAUSEA AND/OR VOMITING; Start 10/12/18 at 22:01 Acetaminophen (Tylenol Tab) 650 mg Q6H PRN PO PAIN LEVEL 1-3 OR FEVER Last administered on 10/17/18at 08:57; Admin Dose 650 MG; Start 10/12/18 at 22:01 Hydromorphone HCl (Dilaudid) 1 mg Q3H PRN IV BREAKTHROUGH PAIN Last administered on 10/19/18at 09:06; Admin Dose 1 MG; Start 10/12/18 at 22:01 IV Flush (NS 3 ml) 3 ml per protocol IV ; Start 10/12/18 at 22:01 Enoxaparin Sodium (Lovenox) 40 mg DAILY SC Last administered on 10/18/18 09:26; Admin Dose 40 MG; Start 10/12/18 at 22:01 Acetaminophen/ Hydrocodone Bitart ([place] (5/325)) 1 tab Q3H PRN PO MODERATE PAIN LEVEL 4-6 Last administered on 10/19/18 05:22; Admin Dose 1 TAB; Start 10/12/18 at 22:01 Senna (Senokot) 1 tab HS PO Last administered on 10/18/18 20:56; Admin Dose 1 TAB; Start 10/13/18 at 21:00 Lactulose (Enulose) 20 gm DAILY PRN PO CONSTIPATION Last administered on 10/14/18 09:13; Admin Dose 20 GM; Start 10/13/18 at 00:00 Bisacodyl (Dulcolax Supp) 10 mg DAILY PRN [place] CONSTIPATION; Start 10/13/18 at 00:00 Morphine Sulfate (morphine) 6 mg Q4H PRN PO SEVERE PAIN LEVEL 7-10; Start 10/13/18 at 17:00 Megestrol Acetate (Megace Susp) 400 mg BID PO Last administered on 10/18/18 20:56; Admin Dose 400 MG; Start 10/14/18 at 09:00 Prednisone (Prednisone) 5 mg BID PO Last administered on 10/18/18 20:57; Admin Dose 5 MG; Start 10/14/18 at 21:00 Voriconazole (Vfend) 200 mg BID PO Last administered on 10/18/18 20:57; Admin Dose 200 MG; Start 10/15/18 at 11:24 Clotrimazole (Lotrimin Cr) 1 applic BID TOP Last administered on 10/18/18 20:57; Admin Dose 1 APPLIC; Start 10/15/18 at 21:00 Non-Formulary Medication 1 DOSE = 1000mg = 4 X 25... DAILY@0600 PO Last administered on 10/19/18 05:27; Admin Dose 1 DOSE; Start 10/17/18 at 06:00 Multivitamins Therapeutic (Theragran) 1 tab DAILY PO Last administered on 10/18/18 09:25; Admin Dose 1 TAB; Start 10/17/18 at 11:30 MALGORZATA ODELL MD Oct 19, 2018 15:44
[2018-10-19] MEDS: ENOXAPARIN 40 MG/0.4 ML SYG SC SCH (18:04)
--- NOTE | 2018-10-19 19:00 | NUR ---
Nursing Notes: patient was seen by Dr. Rowe, aware of the bruises on left flank. RN called Dr. Gill informed of the bruises ( red ) in left flank, stated he will see the patient.
--- NOTE | 2018-10-19 19:00 | NUR ---
Nursing Notes: Maggi, PT and RN noted patient left hip/flank with big red bruise but no skin breakdown, affected part was photograph. Dr. Irizarry and RN checked the bruise area with order, CBC done and Dr. Irizarry aware of the result.
[2018-10-19] MEDS: SENNA TAB PO SCH (20:31)
[2018-10-20 02:00] VITALS: BP 128/61; PULSE 79; RESP 18
[2018-10-20] MEDS: PANTOPRAZOLE (EC) 40 MG TAB PO SCH (05:55)
[2018-10-20] MEDS: [UNRECOGNIZED DRUG - REMARK] PO SCH (06:10)
[2018-10-20] MEDS: LEVOTHYROXINE 125 MCG TAB PO SCH (06:10)
--- NOTE | 2018-10-20 06:34 | NUR ---
PT SLEPT WELL DURING THE SHIFT. DENIES PAIN. NO DISTRESS NOTED. ALL DUE MEDS GIVEN. TURN AND REPOSITION Q 2HOURS. KEPT DRY AND CLEAN. CHEMO MEDS GIVEN IN AM. CHEMO PRECAUTION. DRESSING ON LEFT HIP CHANGED PER ORDER. HOURLY ROUNDING MADE. CALL LIGHT AND TABLE ARE WITHIN REACH.
[2018-10-20 07:30] VITALS: BP 115/53; PULSE 94; RESP 18
[2018-10-20] MEDS: CLOTRIMAZOLE 1% 30 GM CR TOP SCH ×2 (08:56→21:06)
[2018-10-20] MEDS: MEGESTROL (40 MG/ML) 10ML CUP PO SCH ×2 (08:56→21:05)
[2018-10-20] MEDS: predniSONE 5 MG TAB PO SCH ×2 (08:56→21:05)
[2018-10-20] MEDS: VORICONAZOLE 200 MG TAB PO SCH ×2 (08:56→21:05)
[2018-10-20] MEDS: MULTIVITAMINS THERAPEUTIC TAB PO SCH (08:56)
--- NOTE | 2018-10-20 08:58 | NUR ---
Called Dr. Gill at 07:45 this morning to notify about the swelling and edema of the left hip area. Still with serous drainage, soaking wet. home organizer KASSANDRA Dawn changed dressing. RN got a call now from Dr. Gill to do stat left hip x-ray. order carried out.
--- NOTE | 2018-10-20 12:01 | PN ---
Date/Time of Note Date/Time of Note DATE: 10/20/18 TIME: 12:01 Subjective Still with pain Objective Vital Signs Date Temp Pulse Resp B/P (MAP) Pulse Ox O2 O2 Flow FiO2 Time Delivery Rate 10/20/18 98.8 94 18 115/53 93 Room Air 07:30 (73) Intake and Output 10/19/18 10/19/18 10/20/18 1515:00 23:00 07:00 IntakeIntake Total 420 ml 200 ml OutputOutput Total 550 ml 550 ml BalanceBalance -550 ml -130 ml 200 ml Exam pulm-cta bd-soft hip-with drainage, and surrounding edema/erythema Results/Medications Result Diagram: 10/19/18 1202 Results 24 hrs Laboratory Tests Test 10/19/18 12:02 White Blood Count 8.0 # Red Blood Count 2.69 L Hemoglobin 9.1 L Hematocrit 29.7 L Mean Corpuscular Volume 110.4 H Mean Corpuscular Hemoglobin 33.8 H Mean Corpuscular Hemoglobin Concent 30.6 L Red Cell Distribution Width 24.1 H Platelet Count 89 #L Mean Platelet Volume 10.3 Immature Granulocytes % 0.500 H Neutrophils % 68.2 Lymphocytes % 23.2 Monocytes % 6.7 Eosinophils % 1.3 Basophils % 0.1 Nucleated Red Blood Cells % 0.0 Immature Granulocytes # 0.040 H Neutrophils # 5.4 Lymphocytes # 1.9 Monocytes # 0.5 Eosinophils # 0.1 Basophils # 0.0 Nucleated Red Blood Cells # 0.0 Medications Current Medications Levothyroxine Sodium (Synthroid) 125 mcg BEFORE BREAKFAST PO Last administered on 10/20/18at 06:10; Admin Dose 125 MCG; Start 10/12/18 at 22:01 Pantoprazole (Protonix Tab) 40 mg DAILY@06 PO Last administered on 10/20/18at 05:55; Admin Dose 40 MG; Start 10/12/18 at 22:01 Ondansetron HCl (Zofran Inj) 4 mg Q6H PRN IV NAUSEA AND/OR VOMITING; Start 10/12/18 at 22:01 Acetaminophen (Tylenol Tab) 650 mg Q6H PRN PO PAIN LEVEL 1-3 OR FEVER Last ad ministered on 10/17/18at 08:57; Admin Dose 650 MG; Start 10/12/18 at 22:01 Hydromorphone HCl (Dilaudid) 1 mg Q3H PRN IV BREAKTHROUGH PAIN Last administered on 10/19/18 18:02; Admin Dose 1 MG; Start 10/12/18 at 22:01 IV Flush (NS 3 ml) 3 ml per protocol IV ; Start 10/12/18 at 22:01 Enoxaparin Sodium (Lovenox) 40 mg DAILY SC Last administered on 10/19/18 18:04; Admin Dose 40 MG; Start 10/12/18 at 22:01 Acetaminophen/ Hydrocodone Bitart ([place] (5/325)) 1 tab Q3H PRN PO MODERATE PAIN LEVEL 4-6 Last administered on 10/19/18 05:22; Admin Dose 1 TAB; Start 10/12/18 at 22:01 Senna (Senokot) 1 tab HS PO Last administered on 10/19/18 20:31; Admin Dose 1 TAB; Start 10/13/18 at 21:00 Lactulose (Enulose) 20 gm DAILY PRN PO CONSTIPATION Last administered on 10/14/18 09:13; Admin Dose 20 GM; Start 10/13/18 at 00:00 Bisacodyl (Dulcolax Supp) 10 mg DAILY PRN [place] CONSTIPATION; Start 10/13/18 at 0 0:00 Morphine Sulfate (morphine) 6 mg Q4H PRN PO SEVERE PAIN LEVEL 7-10; Start 10/13/18 at 17:00 Megestrol Acetate (Megace Susp) 400 mg BID PO Last administered on 10/20/18 08:56; Admin Dose 400 MG; Start 10/14/18 at 09:00 Prednisone (Prednisone) 5 mg BID PO Last administered on 10/20/18 08:56; Admin Dose 5 MG; Start 10/14/18 at 21:00 Voriconazole (Vfend) 200 mg BID PO Last administered on 10/20/18 08:56; Admin Dose 200 MG; Start 10/15/18 at 11:24 Clotrimazole (Lotrimin Cr) 1 applic BID TOP Last administered on 10/20/18 08:56; Admin Dose 1 APPLIC; Start 10/15/18 at 21:00 Non-Formulary Medication 1 DOSE = 1000mg = 4 X 25... DAILY@0600 PO Last administered on 10/20/18 06:10; Admin Dose 1 DOSE; Start 10/17/18 at 06:00 Multivitamins Therapeutic (Theragran) 1 tab DAILY PO Last administered on 10/20/18at 08:56; Admin Dose 1 TAB; Start 10/17/18 at 11:30 Assessment/Plan Additional Assessment/Plan Rehab- Left intertrochanteric hip fracture status post ORIF; Toxic metabolic encephalopathy. Await ortho follow up before resumption of therapies - Prostate Ca-chemo; UTI; appreciate Dr. Collins input Heme/Onc- patient receiving his own chemo meds Dysphagia on pureed diet-speech Cirrhosis. Pancytopenia. AMANDA KOENIG MD Oct 20, 2018 12:01
[2018-10-20] MEDS: ENOXAPARIN 40 MG/0.4 ML SYG SC SCH (12:33)
--- NOTE | 2018-10-20 13:00 | CONS ---
Date/Time of Note Date/Time of Note DATE: 10/20/18 TIME: 12:56 Consult Date/Type/Reason Admit Date/Time Oct 12, 2018 at 20:00 Initial Consult Date 10/15/18 Type of Consultation: Urology Reason for Consultation prostate cancer and hematuria Requesting Provider: [facility] Subjective The patient is awake alert and comfortable, having his lunch. He has no pain at the present time Objective Vital Signs Date Temp Pulse Resp B/P (MAP) Pulse Ox O2 O2 Flow FiO2 Time Delivery Rate 10/20/18 98.8 94 18 115/53 93 Room Air 07:30 (73) Intake and Output 10/19/18 10/19/18 10/20/18 1515:00 23:00 07:00 IntakeIntake Total 420 ml 200 ml OutputOutput Total 550 ml 550 ml BalanceBalance -550 ml -130 ml 200 ml Exam Vaughn catheter is draining well and the urine is clear Results/Medications Result Diagram: 10/19/18 1202 Medications Current Medications Levothyroxine Sodium (Synthroid) 125 mcg BEFORE BREAKFAST PO Last administered on 10/20/18at 06:10; Admin Dose 125 MCG; Start 10/12/18 at 22:01 Pantoprazole (Protonix Tab) 40 mg DAILY@06 PO Last administered on 10/20/18at 05:55; Admin Dose 40 MG; Start 10/12/18 at 22:01 Ondansetron HCl (Zofran Inj) 4 mg Q6H PRN IV NAUSEA AND/OR VOMITING; Start 10/12/18 at 22:01 Acetaminophen (Tylenol Tab) 650 mg Q6H PRN PO PAIN LEVEL 1-3 OR FEVER Last administered on 10/17/18at 08:57; Admin Dose 650 MG; Start 10/12/18 at 22:01 Hydromorphone HCl (Dilaudid) 1 mg Q3H PRN IV BREAKTHROUGH PAIN Last administered on 10/19/18at 18:02; Admin Dose 1 MG; Start 10/12/18 at 22:01 IV Flush (NS 3 ml) 3 ml per protocol IV ; Start 10/12/18 at 22:01 Enoxaparin Sodium (Lovenox) 40 mg DAILY SC Last administered on 10/20/18at 12:33; Admin Dose 40 MG; Start 10/12/18 at 22:01 Acetaminophen/ Hydrocodone Bitart ([place] (5/325)) 1 tab Q3H PRN PO MODERATE PAIN LEVEL 4-6 Last administered on 10/19/18 05:22; Admin Dose 1 TAB; Start 10/12/18 at 22:01 Senna (Senokot) 1 tab HS PO Last administered on 10/19/18 20:31; Admin Dose 1 TAB; Start 10/13/18 at 21:00 Lactulose (Enulose) 20 gm DAILY PRN PO CONSTIPATION Last administered on 10/14/18 09:13; Admin Dose 20 GM; Start 10/13/18 at 00:00 Bisacodyl (Dulcolax Supp) 10 mg DAILY PRN [place] CONSTIPATION; Start 10/13/18 at 00:00 Morphine Sulfate (morphine) 6 mg Q4H PRN PO SEVERE PAIN LEVEL 7-10; Start 10/13/18 at 17:00 Megestrol Acetate (Megace Susp) 400 mg BID PO Last administered on 10/20/18 08:56; Admin Dose 400 MG; Start 10/14/18 at 09:00 Prednisone (Prednisone) 5 mg BID PO Last administered on 10/20/18 08:56; Admin Dose 5 MG; Start 10/14/18 at 21:00 Voriconazole (Vfend) 200 mg BID PO Last administered on 10/20/18 08:56; Admin Dose 200 MG; Start 10/15/18 at 11:24 Clotrimazole (Lotrimin Cr) 1 applic BID TOP Last administered on 10/20/18 08:56; Admin Dose 1 APPLIC; Start 10/15/18 at 21:00 Non-Formulary Medication 1 DOSE = 1000mg = 4 X 25... DAILY@0600 PO Last administered on 10/20/18 06:10; Admin Dose 1 DOSE; Start 10/17/18 at 06:00 Multivitamins Therapeutic (Theragran) 1 tab DAILY PO Last administered on 10/20/18 08:56; Admin Dose 1 TAB; Start 10/17/18 at 11:30 Assessment/Plan Chief Complaint/Hosp Course 78-year-old male who is known to have a history of prostate cancer on chemotherapy presented to the emergency room after a fall and was found to have a left hip fracture. He underwent open reduction internal fixation of the fracture and when he was stable he was transferred to the rehab unit for further care a urological consultation was requested because of the history of prostate cancer. The patient has cancer of the prostate with a Elke score 10 out of 10 and the cancer is invading into the bladder and causing also obstruction on the left ureter. Patient has been on abiraterone acetate 250 mg 4 tablets daily also on prednisone 5 mg 2 tablets twice a day. He does have an indwelling Vaughn catheter that is draining clear urine now. There is no gross hematuria. Continue present treatment KRISTIN LINARES MD Oct 20, 2018 13:00
[2018-10-20 14:00] VITALS: BP 113/54; PULSE 100; RESP 20
--- NOTE | 2018-10-20 14:25 | NUR ---
PT NOTE Pt's , Rosa arrived. She wanted an update on pt's condition specifically with PT. Spoke with her using audio Chinese cardroom worker (thePlatform video system not working). Told her of pt's progress and Rx being held since yesterday noon. Still waiting for surgeon to see pt at this time for inc. L flank swelling and edema. All her questions were answered. KASSANDRA Villegas notified.
--- NOTE | 2018-10-20 17:01 | NUR ---
Called OMER Downing thru office no. [phone] for needle felt making machine operator to page her. Dr. Irizarry requested Chang to follow-up pt regarding white count. Awaiting for call back. Addendum: 10/20/18 at 1711 by RAAD HULL RN OMER Downing called back. She will follow-up pt tomorrow. White count has increased to normal, no fever. KASSANDRA requested Chang to talk to the Finn since she was asking about hemoglobin and Chang can explain to her in Cook Islander.
--- NOTE | 2018-10-20 17:37 | PN ---
Date/Time of Note Date/Time of Note DATE: 10/20/18 TIME: 17:37 Assessment/Plan VTE Prophylaxis Risk score (from Nsg)>0 risk: 11 SCD applied (from Nsg): Yes Pharmacological prophylaxis: heparin Lines/Catheters IV Catheter Type (from Nrsg): Saline Lock Urinary Cath still in place: Yes Reason Cath still needed: urinary retention Assessment/Plan Hospital Course 78 yo M s/p mechanical fall and hip fracture s/p ORIF admitted to ARU for rehab. Med conditions are as follows: 1. Chronic indwelling Vaughn catheter secondary to #6 -UA noted -infectious disease on board, changed abx to fungal for now 2. Urinary tract infection on treatment -fungal infection per ID so far. 3. Pancytopenia 10/31 #4? r/o iron deficiency -No indication for transfusion at this time 4. Chronic liver cirrhosis status post TIPS 5. Coagulopathy and hypoalbuminemia likely secondary to #4 6. History of prostate cancer with bladder invasion and history of bladder res ection and CT evidence of left bladder wall mass with involvement of left UVJ and irregular borders on prostate glands -Spoke to patient's most recent oncologist, Dr. Freddy Sanchez, and oncologist who works out of [facility], according to him he saw the patient in the inpatient setting at [facility] approximately 1 month ago and was supposed to follow-up in the outpatient setting however patient and patient's family stated that they would get somewhat closer to their home. Patient is to be on Zytiga on a daily basis no matter what and the prednisone is an adjuvant for the Zytiga hormonal-based chemotherapy. We will continue current meds. -Patient will need to follow-up with an oncologist as soon as he leaves the rehab unit 7. 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 Recent hip fracture status post mechanical fall status post ORIF 10/09/18 -in rehab 9. Evidence of right hepatic surgery (TIPS?) on CT -monitor 10. toe fungal infection -seen by podiatry Result Diagram: 10/19/18 1202 Subjective 24 Hr Interval Summary Free Text/Dictation No change to clinical status. Working with PT Exam/Review of Systems Vital Signs Vitals Vital Signs Date Temp Pulse Resp B/P (MAP) Pulse Ox O2 O2 Flow FiO2 Time Delivery Rate 10/20/18 98.8 94 18 115/53 93 Room Air 07:30 (73) Intake and Output 10/19/18 10/19/18 10/20/18 1515:00 23:00 07:00 IntakeIntake Total 420 ml 200 ml OutputOutput Total 550 ml 550 ml BalanceBalance -550 ml -130 ml 200 ml Medications Medications Current Medications Levothyroxine Sodium (Synthroid) 125 mcg BEFORE BREAKFAST PO Last administered on 10/20/18at 06:10; Admin Dose 125 MCG; Start 10/12/18 at 22:01 Pantoprazole (Protonix Tab) 40 mg DAILY@06 PO Last administered on 10/20/18at 05:55; Admin Dose 40 MG; Start 10/12/18 at 22:01 Ondansetron HCl (Zofran Inj) 4 mg Q6H PRN IV NAUSEA AND/OR VOMITING; Start 10/12/18 at 22:01 Acetaminophen (Tylenol Tab) 650 mg Q6H PRN PO PAIN LEVEL 1-3 OR FEVER Last administered on 10/17/18at 08:57; Admin Dose 650 MG; Start 10/12/18 at 22:01 Hydromorphone HCl (Dilaudid) 1 mg Q3H PRN IV BREAKTHROUGH PAIN Last administered on 10/19/18at 18:02; Admin Dose 1 MG; Start 10/12/18 at 22:01 IV Flush (NS 3 ml) 3 ml per protocol IV ; Start 10/12/18 at 22:01 Enoxaparin Sodium (Lovenox) 40 mg DAILY SC Last administered on 10/20/18at 12:33; Admin Dose 40 MG; Start 10/12/18 at 22:01 Acetaminophen/ Hydrocodone Bitart ([place] (5/325)) 1 tab Q3H PRN PO MODERATE PAIN LEVEL 4-6 Last administered on 10/19/18at 05:22; Admin Dose 1 TAB; Start 10/12/18 at 22:01 Senna (Senokot) 1 tab HS PO Last administered on 10/19/18at 20:31; Admin Dose 1 TAB; Start 10/13/18 at 21:00 Lactulose (Enulose) 20 gm DAILY PRN PO CONSTIPATION Last administered on 10/14/18at 09:13; Admin Dose 20 GM; Start 10/13/18 at 00:00 Bisacodyl (Dulcolax Supp) 10 mg DAILY PRN [place] CONSTIPATION; Start 10/13/18 at 00:00 Morphine Sulfate (morphine) 6 mg Q4H PRN PO SEVERE PAIN LEVEL 7-10; Start 10/13/18 at 17:00 Megestrol Acetate (Megace Susp) 400 mg BID PO Last administered on 10/20/18 08:56; Admin Dose 400 MG; Start 10/14/18 at 09:00 Prednisone (Prednisone) 5 mg BID PO Last administered on 10/20/18 08:56; Admin Dose 5 MG; Start 10/14/18 at 21:00 Voriconazole (Vfend) 200 mg BID PO Last administered on 10/20/18 08:56; Admin Dose 200 MG; Start 10/15/18 at 11:24 Clotrimazole (Lotrimin Cr) 1 applic BID TOP Last administered on 10/20/18 08:56; Admin Dose 1 APPLIC; Start 10/15/18 at 21:00 Non-Formulary Medication 1 DOSE = 1000mg = 4 X 25... DAILY@0600 PO Last administered on 10/20/18 06:10; Admin Dose 1 DOSE; Start 10/17/18 at 06:00 Multivitamins Therapeutic (Theragran) 1 tab DAILY PO Last administered on 10/20/18 08:56; Admin Dose 1 TAB; Start 10/17/18 at 11:30 MALGORZATA ODELL MD Oct 20, 2018 17:37
--- NOTE | 2018-10-20 19:02 | PN ---
DATE: 10/20/2018 Stable vital signs and afebrile. No leukocytosis with a WBC count 8.0, H and H is 9.1/29.7 on 2018. Still has a considerable amount of effusion through the incision site; however, there were no signs of any necrosis or cellulitis or infection. Drainage is clear liquid. Repeated x-rays of the left hip revealed a satisfactory alignment of the fracture with proper position of the fixation devic e. One of the reasons he is still having considerable amount of effusion from the incision site is b ecause of the poor tissue quality and possibly because of the chemotherapy. We need to keep the area sterile with sterile occlusive dressings until the effusion decreases. The dressings should be melara ged in aseptic manner to prevent any contamination or infection of the wound. Dictated By: NAET HOWELL MD IK/NTS Conf#: [id number] DID#: [id number] CC: AMANDA KOENIG MD;*End*
[2018-10-20 20:00] VITALS: BP 119/55; PULSE 96; RESP 18
[2018-10-20] MEDS: SENNA TAB PO SCH (21:05)
[2018-10-21 02:27] VITALS: BP 121/54; PULSE 88; RESP 18
--- NOTE | 2018-10-21 06:08 | NUR ---
Slept well. Resp unlabored. Remains on chemo precaution, observed. Vaughn cath intact draining well to dark reuben urine. encouraged increase fluid intake. Denies pain. Needs attended. Call light within reached, bed alarm is activated. No acute distress noted.
[2018-10-21] MEDS: PANTOPRAZOLE (EC) 40 MG TAB PO SCH (06:34)
[2018-10-21] MEDS: LEVOTHYROXINE 125 MCG TAB PO SCH (06:34)
[2018-10-21] MEDS: [UNRECOGNIZED DRUG - REMARK] PO SCH (06:57)
[2018-10-21 07:00] VITALS: BP 122/58; PULSE 82; RESP 18
[2018-10-21] MEDS: MULTIVITAMINS THERAPEUTIC TAB PO SCH (09:31)
[2018-10-21] MEDS: predniSONE 5 MG TAB PO SCH ×2 (09:31→20:39)
[2018-10-21] MEDS: VORICONAZOLE 200 MG TAB PO SCH (09:31)
[2018-10-21] MEDS: MEGESTROL (40 MG/ML) 10ML CUP PO SCH ×2 (09:31→20:39)
[2018-10-21] MEDS: CLOTRIMAZOLE 1% 30 GM CR TOP SCH ×2 (09:31→21:26)
[2018-10-21] MEDS: ACETAMINOPHEN 325 MG TAB PO PRN (09:32)
[2018-10-21] MEDS: ENOXAPARIN 40 MG/0.4 ML SYG SC SCH (09:36)
--- NOTE | 2018-10-21 12:47 | NUR ---
SOCIAL WORK NOTE: This foster care social worker spoke w/ pt daughter Marian [phone], reports that she and pt family discussed discharge options. It was decided that pt transfer to [facility], clinicals were sent prior to pt coming to ARU. This board writer faxed updated clinicals and spoke w/ Argelia in admissions [phone], pt was accepted. Transportation was set up w/ [facility] [phone] for 11am scrap picker, trip#[id number]. RN and MD made aware.
--- NOTE | 2018-10-21 13:17 | PN ---
Date/Time of Note Date/Time of Note DATE: 10/21/18 TIME: 13:16 Subjective Better today. Case d/w daughter, who would like patient to go to [facility] Objective Vital Signs Date Temp Pulse Resp B/P (MAP) Pulse Ox O2 O2 Flow FiO2 Time Delivery Rate 10/21/18 98.5 82 18 122/58 94 Room Air 07:00 (79) Intake and Output 10/20/18 10/20/18 10/21/18 1515:00 23:00 07:00 IntakeIntake Total 300 ml OutputOutput Total 450 ml 400 ml BalanceBalance -450 ml -100 ml Exam pulm-cta bd-soft mod/max Results/Medications Result Diagram: 10/19/18 1202 Medications Current Medications Levothyroxine Sodium (Synthroid) 125 mcg BEFORE BREAKFAST PO Last administered on 10/21/18 06:34; Admin Dose 125 MCG; Start 10/12/18 at 22:01 Pantoprazole (Protonix Tab) 40 mg DAILY@06 PO Last administered on 10/21/18at 06:34; Admin Dose 40 MG; Start 10/12/18 at 22:01 Ondansetron HCl (Zofran Inj) 4 mg Q6H PRN IV NAUSEA AND/OR VOMITING; Start 10/12/18 at 22:01 Acetaminophen (Tylenol Tab) 650 mg Q6H PRN PO PAIN LEVEL 1-3 OR FEVER Last administered on 10/21/18at 09:32; Admin Dose 650 MG; Start 10/12/18 at 22:01 Hydromorphone HCl (Dilaudid) 1 mg Q3H PRN IV BREAKTHROUGH PAIN Last adminis tered on 10/19/18at 18:02; Admin Dose 1 MG; Start 10/12/18 at 22:01 IV Flush (NS 3 ml) 3 ml per protocol IV ; Start 10/12/18 at 22:01 Enoxaparin Sodium (Lovenox) 40 mg DAILY SC Last administered on 10/21/18 09:36; Admin Dose 40 MG; Start 10/12/18 at 22:01 Acetaminophen/ Hydrocodone Bitart ([place] (5/325)) 1 tab Q3H PRN PO MODERATE PAIN LEVEL 4-6 Last administered on 10/19/18at 05:22; Admin Dose 1 TAB; Start 10/12/18 at 22:01 Senna (Senokot) 1 tab HS PO Last administered on 10/20/18 21:05; Admin Dose 1 TAB; Start 10/13/18 at 21:00 Lactulose (Enulose) 20 gm DAILY PRN PO CONSTIPATION Last administered on 10/14/18 09:13; Admin Dose 20 GM; Start 10/13/18 at 00:00 Bisacodyl (Dulcolax Supp) 10 mg DAILY PRN [place] CONSTIPATION; Start 10/13/18 at 00:00 Morphine Sulfate (morphine) 6 mg Q4H PRN PO SEVERE PAIN LEVEL 7-10; Start 10/13/18 at 17:00 Megestrol Acetate (Megace Susp) 400 mg BID PO Last administered on 10/21/18 09:31; Admin Dose 400 MG; Start 10/14/18 at 09:00 Prednisone (Prednisone) 5 mg BID PO Last administered on 10/21/18 09:31; Admin Dose 5 MG; Start 10/14/18 at 21:00 Voriconazole (Vfend) 200 mg BID PO Last administered on 10/21/18 09:31; Admin Dose 200 MG; Start 10/15/18 at 11:24 Clotrimazole (Lotrimin Cr) 1 applic BID TOP Last administered on 10/21/18 09:31; Admin Dose 1 APPLIC; Start 10/15/18 at 21:00 Non-Formulary Medication 1 DOSE = 1000mg = 4 X 25... DAILY@0600 PO Last administered on 10/21/18 06:57; Admin Dose 4 DOSE; Start 10/17/18 at 06:00 Multivitamins Therapeutic (Theragran) 1 tab DAILY PO Last administered on 10/21/18 09:31; Admin Dose 1 TAB; Start 10/17/18 at 11:30 Assessment/Plan Additional Assessment/Plan Rehab- Left intertrochanteric hip fracture status post ORIF; Toxic metabolic encephalopathy. Continue activities as tolerated - Prostate Ca-chemo; UTI;f /b Dr. Collins Heme/Onc- patient receiving his own chemo meds Dysphagia on pureed diet-speech Cirrhosis. Pancytopenia. AMANDA KOENIG MD Oct 21, 2018 13:17
--- NOTE | 2018-10-21 13:59 | CONS ---
Assessment/Plan Assessment/Plan Hospital Course No acute changes, patient is sleeping, arousable, denies pain, no fevers Antimicrobials: Voriconazole Physical examination: Cachectic well-developed elderly man in no distress. Head atraumatic normocephalic neck is supple chest rise symmetrical breath sounds diminished bases heart: S1-S2 abdomen soft bowel sounds present extremities no cyanosis Assessment: 1. 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 Status post open reduction internal fixation of left hip 10/09/18 4. Cachexia 5. Bilateral lower extremities onychomycosis Plan: Remains stable, DC Vfend, pending discharge to [facility] tomorrow DW with staff Result Diagram: 10/19/18 1202 Consultation Date/Type/Reason Admit Date/Time Oct 12, 2018 at 20:00 Initial Consult Date Type of Consult id Requesting Provider: ELAD[facility] NASSAR [facility], [facility] Exam/Review of Systems Vital Signs Vitals Vital Signs Date Temp Pulse Resp B/P (MAP) Pulse Ox O2 O2 Flow FiO2 Time Delivery Rate 10/21/18 98.5 82 18 122/58 94 Room Air 07:00 (79) Intake and Output 10/20/18 10/20/18 10/21/18 1515:00 23:00 07:00 IntakeIntake Total 300 ml OutputOutput Total 450 ml 400 ml BalanceBalance -450 ml -100 ml Medications Medications Current Medications Levothyroxine Sodium (Synthroid) 125 mcg BEFORE BREAKFAST PO Last administered on 10/21/18at 06:34; Admin Dose 125 MCG; Start 10/12/18 at 22:01 Pantoprazole (Protonix Tab) 40 mg DAILY@06 PO Last administered on 10/21/18at 06:34; Admin Dose 40 MG; Start 10/12/18 at 22:01 Ondansetron HCl (Zofran Inj) 4 mg Q6H PRN IV NAUSEA AND/OR VOMITING; Start 10/12/18 at 22:01 Acetaminophen (Tylenol Tab) 650 mg Q6H PRN PO PAIN LEVEL 1-3 OR FEVER Last administered on 10/21/18at 09:32; Admin Dose 650 MG; Start 10/12/18 at 22:01 Hydromorphone HCl (Dilaudid) 1 mg Q3H PRN IV BREAKTHROUGH PAIN Last administered on 10/19/18 18:02; Admin Dose 1 MG; Start 10/12/18 at 22:01 IV Flush (NS 3 ml) 3 ml per protocol IV ; Start 10/12/18 at 22:01 Enoxaparin Sodium (Lovenox) 40 mg DAILY SC Last administered on 10/21/18 09:36; Admin Dose 40 MG; Start 10/12/18 at 22:01 Acetaminophen/ Hydrocodone Bitart ([place] (5/325)) 1 tab Q3H PRN PO MODERATE PAIN LEVEL 4-6 Last administered on 10/19/18 05:22; Admin Dose 1 TAB; Start 10/12/18 at 22:01 Senna (Senokot) 1 tab HS PO Last administered on 10/20/18 21:05; Admin Dose 1 TAB; Start 10/13/18 at 21:00 Lactulose (Enulose) 20 gm DAILY PRN PO CONSTIPATION Last administered on 10/14/18 09:13; Admin Dose 20 GM; Start 10/13/18 at 00:00 Bisacodyl (Dulcolax Supp) 10 mg DAILY PRN [place] CONSTIPATION; Start 10/13/18 at 00:00 Morphine Sulfate (morphine) 6 mg Q4H PRN PO SEVERE PAIN LEVEL 7-10; Start 10/13/18 at 17:00 Megestrol Acetate (Megace Susp) 400 mg BID PO Last administered on 10/21/18 09:31; Admin Dose 400 MG; Start 10/14/18 at 09:00 Prednisone (Prednisone) 5 mg BID PO Last administered on 10/21/18 09:31; Admin Dose 5 MG; Start 10/14/18 at 21:00 Voriconazole (Vfend) 200 mg BID PO Last administered on 10/21/18 09:31; Admin Dose 200 MG; Start 10/15/18 at 11:24 Clotrimazole (Lotrimin Cr) 1 applic BID TOP Last administered on 10/21/18 09:31; Admin Dose 1 APPLIC; Start 10/15/18 at 21:00 Non-Formulary Medication 1 DOSE = 1000mg = 4 X 25... DAILY@0600 PO Last administered on 10/21/18 06:57; Admin Dose 4 DOSE; Start 10/17/18 at 06:00 Multivitamins Therapeutic (Theragran) 1 tab DAILY PO Last administered on 10/21/18at 09:31; Admin Dose 1 TAB; Start 10/17/18 at 11:30 Date/Time of Note Date/Time of Note DATE: 10/21/18 TIME: 13:58 AMY KWONG NP Oct 21, 2018 13:59
[2018-10-21 14:00] VITALS: BP 126/58; PULSE 88; RESP 18
--- NOTE | 2018-10-21 15:58 | NUR ---
NUTRITION NOTE: Consult received. Pt with suboptimal PO intake, ~25% at meals. Assistance required at mealtimes. Pt appears cachetic, fragile and identified with severe subcutaneous fat loss; sunken in cheeks and hollow around orbitals. No reported n/v/d. On Puree diet with Boost BID. Last seen by STRATEGY EXECUTION CONSULTANT 10/03/18. Currently on megace and prednisone, daily MVI. Will increase frequency of Boost to TID. Continue to encourage PO intake. Discharge planning in process, planning to d/c to SNF. Rec continue with appetite stimulant as per MD order. Monitor PO tolerance and intake. Addendum: 10/21/18 at [address] ADDENDUM: Discussed with pt's who was at bedside, used translation apoorva to have conversation. Pt reports pt does not feel hungry, is mostly feeling weak. Eating small amounts of food brought from home to help with appetite. Also discussed that appetite stimulant may take up to 2 months to be effective. Suggest to continue to encourage PO intake. Will increase frequency of Boost to TID.
--- NOTE | 2018-10-21 18:52 | NUR ---
RN note- continue chemo precautions. Pt encouraged to participate in all therapeautic activities.
--- NOTE | 2018-10-21 19:29 | PN ---
DATE: 10/21/2018 PSYCHOLOGY - INDIVIDUAL SESSION - [id number] This is a followup on a patient who was seen last week. The patient is relatively unmotivated to hel p himself and does not want to interact. I attempt to engage the patient with the translation balaji e, but the patient was not willing to even bother with that. The patient is being discharged tomorro w and going to a long-term. The patient is unfortunately not motivated at this point to try to he lp himself. I will try to get the patient to be more engaging and help himself, but he was extremely reluctant to do so. Dictated By: LOI THORNTON PHD RK/MELI Conf#: [id number] DID#: [id number] CC: AMANDA KOENIG MD; KRISTIN LINARES MD; ELADIA NASSAR MD;*EndCC*
--- NOTE | 2018-10-21 19:49 | PN ---
Date/Time of Note Date/Time of Note DATE: 10/21/18 TIME: 19:49 Assessment/Plan VTE Prophylaxis Risk score (from Nsg)>0 risk: 12 SCD applied (from Nsg): Yes Pharmacological prophylaxis: heparin Lines/Catheters IV Catheter Type (from Nrsg): Saline Lock Urinary Cath still in place: Yes Reason Cath still needed: urinary retention Assessment/Plan Hospital Course 78 yo M s/p mechanical fall and hip fracture s/p ORIF admitted to ARU for rehab. Med conditions are as follows: 1. Chronic indwelling Vaughn catheter secondary to #6 -UA noted -infectious disease on board, changed abx to fungal for now 2. Urinary tract infection on treatment -fungal infection per ID so far. 3. Pancytopenia 10/31 #4? r/o iron deficiency -No indication for transfusion at this time 4. Chronic liver cirrhosis status post TIPS 5. Coagulopathy and hypoalbuminemia likely secondary to #4 6. History of prostate cancer with bladder invasion and history of bladder res ection and CT evidence of left bladder wall mass with involvement of left UVJ and irregular borders on prostate glands -Spoke to patient's most recent oncologist, Dr. Freddy Sanchez, and oncologist who works out of [facility], according to him he saw the patient in the inpatient setting at [facility] approximately 1 month ago and was supposed to follow-up in the outpatient setting however patient and patient's family stated that they would get somewhat closer to their home. Patient is to be on Zytiga on a daily basis no matter what and the prednisone is an adjuvant for the Zytiga hormonal-based chemotherapy. We will continue current meds. -Patient will need to follow-up with an oncologist as soon as he leaves the rehab unit 7. 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 Recent hip fracture status post mechanical fall status post ORIF 10/09/18 -in rehab 9. Evidence of right hepatic surgery (TIPS?) on CT -monitor 10. toe fungal infection -seen by podiatry Result Diagram: 10/19/18 1202 Exam/Review of Systems Vital Signs Vitals Vital Signs Date Temp Pulse Resp B/P (MAP) Pulse Ox O2 O2 Flow FiO2 Time Delivery Rate 10/21/18 98.0 88 18 126/58 95 Room Air 14:00 (80) Intake and Output 10/20/18 10/20/18 10/21/18 1515:00 23:00 07:00 IntakeIntake Total 300 ml OutputOutput Total 450 ml 400 ml BalanceBalance -450 ml -100 ml Medications Medications Current Medications Levothyroxine Sodium (Synthroid) 125 mcg BEFORE BREAKFAST PO Last administered on 10/21/18 06:34; Admin Dose 125 MCG; Start 10/12/18 at 22:01 Pantoprazole (Protonix Tab) 40 mg DAILY@06 PO Last administered on 10/21/18 06:34; Admin Dose 40 MG; Start 10/12/18 at 22:01 Ondansetron HCl (Zofran Inj) 4 mg Q6H PRN IV NAUSEA AND/OR VOMITING; Start 10/12/18 at 22:01 Acetaminophen (Tylenol Tab) 650 mg Q6H PRN PO PAIN LEVEL 1-3 OR FEVER Last adm inistered on 10/21/18at 09:32; Admin Dose 650 MG; Start 10/12/18 at 22:01 Hydromorphone HCl (Dilaudid) 1 mg Q3H PRN IV BREAKTHROUGH PAIN Last administered on 10/19/18at 18:02; Admin Dose 1 MG; Start 10/12/18 at 22:01 IV Flush (NS 3 ml) 3 ml per protocol IV ; Start 10/12/18 at 22:01 Enoxaparin Sodium (Lovenox) 40 mg DAILY SC Last administered on 10/21/18at 09:36; Admin Dose 40 MG; Start 10/12/18 at 22:01 Acetaminophen/ Hydrocodone Bitart ([place] (5/325)) 1 tab Q3H PRN PO MODERATE PAIN LEVEL 4-6 Last administered on 10/19/18 05:22; Admin Dose 1 TAB; Start 10/12/18 at 22:01 Senna (Senokot) 1 tab HS PO Last administered on 10/20/18at 21:05; Admin Dose 1 TAB; Start 10/13/18 at 21:00 Lactulose (Enulose) 20 gm DAILY PRN PO CONSTIPATION Last administered on 10/14/18at 09:13; Admin Dose 20 GM; Start 10/13/18 at 00:00 Bisacodyl (Dulcolax Supp) 10 mg DAILY PRN [place] CONSTIPATION; Start 10/13/18 at 00 :00 Morphine Sulfate (morphine) 6 mg Q4H PRN PO SEVERE PAIN LEVEL 7-10; Start 10/13/18 at 17:00 Megestrol Acetate (Megace Susp) 400 mg BID PO Last administered on 10/21/18 09:31; Admin Dose 400 MG; Start 10/14/18 at 09:00 Prednisone (Prednisone) 5 mg BID PO Last administered on 10/21/18 09:31; Admin Dose 5 MG; Start 10/14/18 at 21:00 Clotrimazole (Lotrimin Cr) 1 applic BID TOP Last administered on 10/21/18 09:31; Admin Dose 1 APPLIC; Start 10/15/18 at 21:00 Non-Formulary Medication 1 DOSE = 1000mg = 4 X 25... DAILY@0600 PO Last administered on 10/21/18 06:57; Admin Dose 4 DOSE; Start 10/17/18 at 06:00 Multivitamins Therapeutic (Theragran) 1 tab DAILY PO Last administered on 10/21/18 09:31; Admin Dose 1 TAB; Start 10/17/18 at 11:30 MALGORZATA ODELL MD Oct 21, 2018 19:49
[2018-10-21 20:00] VITALS: BP 126/61; PULSE 99; RESP 18
[2018-10-21] MEDS: HYDROCODONE/APAP (5/325) TAB PO PRN (20:39)
[2018-10-21] MEDS: SENNA TAB PO SCH (20:39)
[2018-10-22 02:00] VITALS: BP 118/58; RESP 18
--- NOTE | 2018-10-22 05:28 | NUR ---
EOSS. PT WAS SLEEPING ALL NIGHT. NO ACUTE EVENTS OVERNIGHT. FALLS PRECAUTIONS OBSERVED. CALL LIGHT WITHIN REACH. CONTINUE PLAN OF CARE.
[2018-10-22] MEDS: PANTOPRAZOLE (EC) 40 MG TAB PO SCH (06:30)
[2018-10-22] MEDS: LEVOTHYROXINE 125 MCG TAB PO SCH (06:30)
[2018-10-22] MEDS: [UNRECOGNIZED DRUG - REMARK] PO SCH (06:32)
[2018-10-22 07:59] VITALS: BP 113/59; PULSE 100; RESP 20
[2018-10-22] MEDS: predniSONE 5 MG TAB PO SCH (09:00)
--- NOTE | 2018-10-22 11:00 | NUR ---
Nursing Notes: RN changed the dressing on left hip incision, applied a thick dressing.
[2018-10-22] MEDS: HYDROCODONE/APAP (5/325) TAB PO PRN (11:01)
[2018-10-22] MEDS: CLOTRIMAZOLE 1% 30 GM CR TOP SCH (11:01)
[2018-10-22] MEDS: MEGESTROL (40 MG/ML) 10ML CUP PO SCH (11:02)
[2018-10-22] MEDS: MULTIVITAMINS THERAPEUTIC TAB PO SCH (11:02)
[2018-10-22] MEDS: ENOXAPARIN 40 MG/0.4 ML SYG SC SCH (11:06)
--- NOTE | 2018-10-22 11:54 | CONS ---
Consult Date/Type/Reason Admit Date/Time Oct 12, 2018 at 20:00 Initial Consult Date 10/15/18 Type of Consultation: IM Requesting Provider: ELADIA NASSAR MD, [facility] Date/Time of Note DATE: 10/22/18 TIME: 11:51 Subjective GENERAL: Frail elderly gentleman appears comfortable at rest no acute distress VITAL SIGNS: per chart NECK: Supple. No JVD or lymphadenopathy. CARDIAC EXAM: S1, S2. No added sounds or murmurs. CHEST: Diminished air entry bilaterally ABDOMEN: Soft, nontender. No guarding or rebound. EXTREMITIES: No cyanosis, clubbing or edema. NEUROLOGIC: Generalized weakness. No focal deficits. Objective Vitals Vital Signs Date Temp Pulse Resp B/P (MAP) Pulse Ox O2 O2 Flow FiO2 Time Delivery Rate 10/22/18 98.9 100 20 113/59 94 07:59 (77) 10/22/18 Room Air 02:00 Intake and Output 10/21/18 10/21/18 10/22/18 1515:00 23:00 07:00 IntakeIntake Total 1600 ml 700 ml OutputOutput Total 800 ml BalanceBalance 800 ml 700 ml Results/Medications Result Diagram: 10/19/18 1202 Home Meds Active Scripts Potassium Chloride* (Potassium Chloride*) 20 Meq Tablet.er, 20 MEQ PO DAILY for 3 Days, TAB.SA Prov:NAHID LAZO. 10/12/18 Furosemide* (Furosemide*) 20 Mg Tablet, 20 MG PO DAILY for 3 Days, #3 TAB Prov:NAHID LAZO. 10/12/18 Levofloxacin* (Levofloxacin*) 500 Mg Tablet, 500 MG PO DAILY for 5 Days, TAB Prov:NAHID LAZO. 10/12/18 [Patient Own Medication] 1 EA EA No Conflict Check, 4 EA PO DAILY, #30 Prov:NAHID LAZO 10/12/18 Docusate Sodium (Docu Liquid) 50 Mg/5 Ml Liquid, 200 MG PO BID for 30 Days Prov:NAHID LZAO 10/12/18 Enoxaparin Sodium (Enoxaparin Sodium) 40 Mg/0.4 Ml Syringe, 40 MG SC DAILY for 30 Days Prov:NAHID LAZO 10/12/18 Tramadol HCl (Tramadol HCl) 50 Mg Tablet, 50 MG PO Q6H PRN for PAIN, #60 TAB Prov:UZIEL ABDI 07/07/18 Reported Medications Abiraterone Acetate (ZYTIGA) 250 Mg Tablet, 1000 MG PO DAILY, TAB 10/01/18 Prednisone* (Prednisone*) 5 Mg Tab, 5 MG PO BID, TAB 10/01/18 Omeprazole* (Omeprazole*) 40 Mg Capsule.dr, 40 MG PO AC BREAKFAST, #30 CAP 07/02/18 Levothyroxine Sodium* (Levothyroxine Sodium*) 125 Mcg Tablet, 125 MCG PO BEFORE BREAKFAST, #30 TAB 07/02/18 Medications Current Medications Levothyroxine Sodium (Synthroid) 125 mcg BEFORE BREAKFAST PO Last administered on 10/22/18 06:30; Admin Dose 125 MCG; Start 10/12/18 at 22:01 Pantoprazole (Protonix Tab) 40 mg DAILY@06 PO Last administered on 10/22/18 06:30; Admin Dose 40 MG; Start 10/12/18 at 22:01 Ondansetron HCl (Zofran Inj) 4 mg Q6H PRN IV NAUSEA AND/OR VOMITING; Start 10/12/18 at 22:01 Acetaminophen (Tylenol Tab) 650 mg Q6H PRN PO PAIN LEVEL 1-3 OR FEVER Last administered on 10/21/18 09:32; Admin Dose 650 MG; Start 10/12/18 at 22:01 Hydromorphone HCl (Dilaudid) 1 mg Q3H PRN IV BREAKTHROUGH PAIN Last administered on 10/19/18 18:02; Admin Dose 1 MG; Start 10/12/18 at 22:01 IV Flush (NS 3 ml) 3 ml per protocol IV ; Start 10/12/18 at 22:01 Enoxaparin Sodium (Lovenox) 40 mg DAILY SC Last administered on 10/22/18 11:06; Admin Dose 40 MG; Start 10/12/18 at 22:01 Acetaminophen/ Hydrocodone Bitart ([place] (5/325)) 1 tab Q3H PRN PO MODERATE PAIN LEVEL 4-6 Last administered on 10/22/18 11:01; Admin Dose 1 TAB; Start 10/12/18 at 22:01 Senna (Senokot) 1 tab HS PO Last administered on 1/23/19at 20:39; Admin Dose 1 TAB; Start 10/13/18 at 21:00 Lactulose (Enulose) 20 gm DAILY PRN PO CONSTIPATION Last administered on 10/14/18 09:13; Admin Dose 20 GM; Start 10/13/18 at 00:00 Bisacodyl (Dulcolax Supp) 10 mg DAILY PRN [place] CONSTIPATION; Start 10/13/18 at 00:00 Morphine Sulfate (morphine) 6 mg Q4H PRN PO SEVERE PAIN LEVEL 7-10; Start 10/13/18 at 17:00 Megestrol Acetate (Megace Susp) 400 mg BID PO Last administered on 10/22/18 11:02; Admin Dose 400 MG; Start 10/14/18 at 09:00 Prednisone (Prednisone) 5 mg BID PO Last administered on 10/22/18 09:00; Admin Dose 5 MG; Start 10/14/18 at 21:00 Clotrimazole (Lotrimin Cr) 1 applic BID TOP Last administered on 10/22/18 11:01; Admin Dose 1 APPLIC; Start 10/15/18 at 21:00 Non-Formulary Medication 1 DOSE = 1000mg = 4 X 25... DAILY@0600 PO Last administered on 10/22/18 06:32; Admin Dose 1 DOSE; Start 10/17/18 at 06:00 Multivitamins Therapeutic (Theragran) 1 tab DAILY PO Last administered on 10/22/18 11:02; Admin Dose 1 TAB; Start 10/17/18 at 11:30 Assessment/Plan Hospital Course (Demo Recall) Hospital Course 78 yo M s/p mechanical fall and hip fracture s/p ORIF admitted to ARU for rehab. Med conditions are as follows: 1. Chronic indwelling Vaughn catheter secondary to #6 -UA noted -infectious disease on board, changed abx to fungal for now 2. Urinary tract infection on treatment -fungal infection per ID so far. 3. Pancytopenia 2/ #4? r/o iron deficiency -No indication for transfusion at this time 4. Chronic liver cirrhosis status post TIPS 5. Coagulopathy and hypoalbuminemia likely secondary to #4 6. History of prostate cancer with bladder invasion and history of bladder resection and CT evidence of left bladder wall mass with involvement of left UVJ and irregular borders on prostate glands oncologist, Dr. Freddy Sanchez, and oncologist who works out of [facility], according to him he saw the patient in the inpatient setting at [facility] approximately 1 month ago and was supposed to follow-up in the outpatient setting however patient and patient's family stated that they would get somewhat closer to their home. Patient is to be on Zytiga on a daily basis no matter what and the prednisone is an adjuvant for the Zytiga hormonal-based chemotherapy. We will continue current meds. -Patient will need to follow-up with an oncologist as soon as he leaves the rehab unit 7. 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 Recent hip fracture status post mechanical fall status post ORIF 10/09/18 -in rehab 9. Evidence of right hepatic surgery (TIPS?) on CT -monitor 10. toe fungal infection -seen by podiatry may need snf placement. ELADIA NASSAR MD, [facility] Oct 22, 2018 11:54
--- NOTE | 2018-10-22 12:00 | NUR ---
Nursing Notes: patient own medication - Zytiga 250 mg ( Chemo Medication ) from Pharmacy was given to patient's daughter ( Marian) 11 tablets ( counted with Marian ). report given to Surendra ( Ambulance Staff ) and KASSANDRA White in [address] [place] tel patient discharge with Vaughn Catheter ( bag was changed today 0 and with Heplock as per order by Dr. rIizarry.
--- NOTE | 2018-10-22 12:00 | NUR ---
Nursing notes: report given to [place] Clerk ( Kentrell Burkett ( daughter ) and KASSANDRA White in SNF, RX given to the daughter.
--- NOTE | 2018-10-22 12:05 | DS ---
Date/Time of Note Date/Time of Note DATE: 10/22/18 TIME: 12:03 Discharge Summary Admission/Discharge Info Admit Date/Time Oct 12, 2018 at 20:00 Discharge Date/Time Discharge Diagnosis 1.Left intertrochanteric hip fracture status post ORIF. 2. Toxic metabolic encephalopathy. 3. Dysphagia . 4. Urinary tract infection. 5. Cirrhosis. 6. Pancytopenia. 7. History of prostate carcinoma. 8. Impairments in self-care, mobility and cognition. Patient Condition: Fair Hospital Course The patient was admitted for comprehensive interdisciplinary rehabilitation and made gradual limited functional gains from a Max/dep level to a max/mod level for self care tasks and mobility. Patient was followed closely for medical issues including his prostate CA, pancytopenia, UTI, FEN, and required close observation of his wound, and now is ready to discharge to a lower level of care. The DC meds are per the medication reconciliation sheet. The patient will follow up with PMD upon DC. Home Meds Active Scripts Potassium Chloride* (Potassium Chloride*) 20 Meq Tablet.er, 20 MEQ PO DAILY for 3 Days, TAB.SA Prov:NAHID LAZO 10/12/18 Furosemide* (Furosemide*) 20 Mg Tablet, 20 MG PO DAILY for 3 Days, #3 TAB Prov:NAHID LAZO. 10/12/18 Levofloxacin* (Levofloxacin*) 500 Mg Tablet, 500 MG PO DAILY for 5 Days, TAB Prov:NAHID LAZO 10/12/18 [Patient Own Medication] 1 EA EA No Conflict Check, 4 EA PO DAILY, #30 Prov:NAHID LAZO 10/12/18 Docusate Sodium (Docu Liquid) 50 Mg/5 Ml Liquid, 200 MG PO BID for 30 Days Prov:NAHID LAZO 10/12/18 Enoxaparin Sodium (Enoxaparin Sodium) 40 Mg/0.4 Ml Syringe, 40 MG SC DAILY for 30 Days Prov:NAHID LAZO 10/12/18 Tramadol HCl (Tramadol HCl) 50 Mg Tablet, 50 MG PO Q6H PRN for PAIN, #60 TAB Prov:UZIEL ABDI 07/07/18 Reported Medications Abiraterone Acetate (ZYTIGA) 250 Mg Tablet, 1000 MG PO DAILY, TAB 10/01/18 Prednisone* (Prednisone*) 5 Mg Tab, 5 MG PO BID, TAB 10/01/18 Omeprazole* (Omeprazole*) 40 Mg Capsule.dr, 40 MG PO AC BREAKFAST, #30 CAP 07/02/18 Levothyroxine Sodium* (Levothyroxine Sodium*) 125 Mcg Tablet, 125 MCG PO BEFORE BREAKFAST, #30 TAB 07/02/18 Primary Care Provider Not On Staff Doctor AMANDA KOENIG MD Oct 22, 2018 12:05
--- NOTE | 2018-10-22 12:30 | NUR ---
Nursing Notes: RN gave report to KASSANDRA Paul in the SNF such as : dressing was changed on left hip , applied a thick dressing, informed that incision with heavy discharges (sero-sangenous) Surgeon ( Dr. Gill was aware ) , to get order to Dr. Gill regarding removal of shae, status post Left Hip ORIF on 10/09/18, with Vaughn Cath draining dark reuben color, Vaughn Cath bag changed this morning , to call Dr. Gill to get appointment 1-2 weeks for follow up and removal of shae. Latest VS 116/63, HR- 114, RR- 20 O2 sat. 965 in RA RN notified Vaniaat patient with tachycardic episodes but stable condition and agreed for transfer.
--- NOTE | 2018-10-22 12:47 | NUR ---
KARLOS RAMIREZ CLEANED AND RETURNED TO THE GYM BY PHYSICAL THERAPIST
--- NOTE | 2018-10-24 12:30 | NUR ---
ADINA teacher assistant Summary Date of Discharge: 10/26/18 Patient Name: JEFFREY DUPONT MR#: [id number] Height: 5 ft 8 in Weight: 165 lbs 5.547 oz 75.000 kg Reason for Visit: LEFT HIP FRACTURE Precautions: Date: 10/26/18 Time: 1310 User: HEMA PILLAI Patient's progress, Adm-->DC: Late Entry Documentation - patient discharge to SNF on 10/22/18 @ 1200 Short-term Goals: 1.patient will have regular bowel and bladder pattern( bowel-incontinent and bladder with Vaughn Catheter) 2. patient will have no fall/s injury while in ARU - no fall incident while admitted in this Unit 3. patient skin integrity will be maintained, no skin breakdown 4. patient willbe pain free- not me ( patient with cancer as per documented by PMD 5. Short-term goals not met and reason/barriers: Achievement of Long-term Goals: Long-term Goals not met and reason/barriers: medical condition with cancer Bladder - level of function and accidents: with Vaughn Catheter Bowel - level of function and accidents: incontinent Skin: dry and fragile Status: remain the same fragile and dry, incision on operative site remain with discharges, needs frequewnt dressing changed, Surgeon, Dr. Irizarry aware Treatment: see MD's order Changes: Pain: Level: 7-8/10 Location: incision site Management: dressing change as needed based on Surgeon's order Changes: Functional levels: Self Care: see PT notes Transfers: see PT notesFWW Locomotion: Assistance requirements: Communication: barely communicate Social Cognition: quiet Safety awareness: intact Interdisciplinary interactions: Patient education: Discharge needs: Comorbid conditions:
--- NOTE | 2018-10-27 16:24 | CONS ---
Assessment/Plan Assessment/Plan Hospital Course (Demo Recall) No acute events overnight patient remains obtunded, on levophed, at bedside no fevers overnight WBC 12.5 H&H 8.1 and 26.5 platelets 52 bands 33 BUN 38 creatinine 1.16 Indwelling: Vaughn catheter, femoral line Microbiology: Urine culture growing pseudomonas aeruginosa, blood culture growing gram-negative rods Diagnostics: Chest x-ray this morning revealed mild to moderate cardiomegaly with new mild to moderate pulmonary vascular congestion and mild to moderate bilateral pleural effusions with atelectasis and consolidations Antimicrobials: Vancomycin, meropenem Physical examination: This is a chronically ill-appearing cachectic elderly man who is obtunded in no distress. Head atraumatic normocephalic sclera nonicteric. Buccal mucosa is very dry. Neck is supple, chest rise symmetrical. Breath sounds diminished bases. Heart: S1-S2. Abdomen soft, bowel tones diminished. Extremities with bilateral trace edema. Skin positive for generalized dependent edema Assessment: 1. Severe sepsis with shock, present on admission 2. Gram-negative elva bacteremia likely secondary to UTI 3. Pseudomonas aeruginosa UTI 4. Acute encephalopathy 5. History and of recent left hip fracture, status post ORIF 10/09/18 6. Liver cirrhosis, status post TI PS 7. Prostate CA with bladder invasion, status post resection in December 2017 Plan: Patient is doing poorly covered with broad-spectrum antibiotics, blood cultures pending, continue present care. Prognosis guarded Discussed with at bedside Consultation Date/Type/Reason Admit Date/Time Oct 12, 2018 at 20:00 Initial Consult Date Type of Consult id Requesting Provider: ELADIA NASSAR MD, [facility] Date/Time of Note DATE: 10/27/18 TIME: 16:24 AMY KWONG NP Oct 27, 2018 16:24
--- NOTE | 2018-10-28 11:27 | NUR ---
[facility] OT Discharge Summary Date of Discharge: 10/22/18 Patient Name: JEFFREY DUPONT MR#: [id number] Height:5 ft 8 in Weight:165 lbs 5.547 oz 75.000 kg Reason for Visit: LEFT HIP FRACTURE Precautions: WBAT on LLE Date: 10/28/18 Time: 1127 User: HAFSA HARPER Short-term Goals: 1. Supervision w/ Grooming 2. Mod A w/ Bathing 3. Sup/ Mod A w/ UB/LB dress 4. Mod A w/ Toileting 5. Mod A w/ Func transfers Upon admission pt has the ff levels: Grooming: Mod A, Bathing: Dep, UB/LB dress: Mod A / Dep, Toileting: Dep, Fucnt Transfers: Dep. Pt made progress towards goals but did not meet all OT short term goals d/t poor c/o of learning secondary to multiple refusals and short stay. Pt's func levels upon d/c are the ff: Grooming: Min A, Bathing : Dependent, UB/LB dress: Min/ MAx, Toileting: TD, Funct transfers: TD. Pt d/[place] to SNF.
--- NOTE | 2018-10-29 11:08 | NUR ---
[facility] PT Discharge Summary Date of Discharge: 10/22/18 Patient Name: JEFFREY DUPONT MR#: [id number] Height: 5 ft 8 in Weight: 165 lbs 5.547 oz 75.000 kg Reason for Visit: LEFT HIP FRACTURE Precautions: [place]-speaking, dec hearing, confused, LLE WBAT, ABD Binder/CATIA hose when OOB per Dr. Irizarry. monitor VS, fall risk, 2PA for safety Date: 10/22/18 Time: 1108 User: MICHELLE LORD Patient's progress, Adm-->DC: Short-term Goals: 1. Mod A bed mobility 2. Max A with transfers with FWW 3. Max A with transfers with FWW 4. Max A with gait with FWW x10ft 5. Min/Mod A WC mobility x25ft Pt made very conservative gains during her stay at [facility]. At the time of eval, pt was mod assist for rolling, max assist for bed mobility, max assist for transfers, dependent for gait using FWW 2 tiny steps. Pt required 2PA for safety/steadying. At the time of dc, pt was Min A for rolling, Max A for bed mobility, max A for transfers, Max A for gait using // bars 3ftx2. Pt still required 2PA for safety/steadying. Barriers: dec hearing, impulsive, confused, pain, lethargy, forgetful, forgetfulness, unable to retain information, poor carryover of learning, poor sequencing, poor problem solving, short stay at [facility]. Pt dc'd to SNF.
== END 2018-10-22 12:00 | DRG 559 ==
LOC: VRC 20:00
PROVIDERS: ADMIT Physical Medicine & Rehabilitation; ATTEND Internal Medicine Pulmonary Disease
PROC: F07Z5ZZ Bed Mobility Treatment (ICD-10-PCS; principal; 2018-10-12)
PROC: F08Z2ZZ Grooming/Personal Hygiene Treatment (ICD-10-PCS; 2018-10-12)
PROC: F06Z6ZZ Communicative/Cognitive Integration Skills Treatment (ICD-10-PCS; 2018-10-12)
DX: S72.144D Nondisplaced intertrochanteric fracture of right femur, subsequent encounter for closed fracture with routine healing (principal); G92 Toxic encephalopathy; N39.0 Urinary tract infection, site not specified; D61.818 Other pancytopenia; R64 Cachexia; G89.18 Other acute postprocedural pain; R13.10 Dysphagia, unspecified; E87.6 Hypokalemia; K70.30 Alcoholic cirrhosis of liver without ascites; Z98.890 Other specified postprocedural states; Z85.51 Personal history of malignant neoplasm of bladder; E83.39 Other disorders of phosphorus metabolism; E80.6 Other disorders of bilirubin metabolism; Z74.09 Other reduced mobility; Z85.46 Personal history of malignant neoplasm of prostate; Z68.25 Body mass index [BMI] 25.0-25.9, adult; F06.31 Mood disorder due to known physiological condition with depressive features; B35.1 Tinea unguium; W19.XXXD Unspecified fall, subsequent encounter
CPT/HCPCS: 73500; 80048; 80053; 81001; 82140; 83540; 83735; 84100; 85025; 85610; 85730; 87040; 87081; 87086; 97110; 97112; 97116; 97163; 97167; 97530; 97535; 97542; J0696; J1170; J1650; J2543; J7030; J7512; P9047